=== PATIENT | male | born 1970 ===

== ENCOUNTER 2020-12-17 17:53 | Emergency (ER) | payer MEDICARE, MEDICAID, SELFPAY ==
--- NOTE | ~2020-12-17 | US_ITS ---
EXAMINATION: US VENOUS ULTRASOUND WITH DOPPLER LOWER EXTREMITY, RIGHT CLINICAL INFORMATION: Pain COMPARISON: None TECHNIQUE: Ultrasound of the deep veins is performed from the hip to the calf with compression sonography and color and pulse Doppler assessment. Spectral analysis with color-flow imaging is performed. FINDINGS: The right common femoral vein is patent. The right superficial femoral vein is duplicated. There is thrombus seen in the posterior mid and distal right superficial femoral vein and popliteal vein extending into the calf. There is no Salazar's cyst. US/US venous duplex LE RT IMPRESSION: Right leg DVT.
[2020-12-17 18:59] VITALS: BP 145/87; PULSE 70; RESP 16; TEMP 36.7; O2SAT 97; BMI 30.6
--- NOTE | 2020-12-17 20:34 | ED_ITS ---
HPI - Extremity Injury (Lower) General Chief Complaint: Extremity Injury, Lower Stated Complaint: Right leg swelling Time Seen by Provider: 12/17/20 20:33 Source: patient and family ( interpreted) Limitations: language barrier ( interpreted) History of Present Illness HPI Narrative: patient is a 50-year-old male with no significant past medical history who presents with right lower extremity pain. Patient's explains the pain started 2 days ago in his right calf, she states the pain is been getting worse and now he Has difficulty ambulating on it. She states she has given him Motrin and Tylenol but neither has worked. She states that is also swollen. They deny any fevers, cough, coughing up blood or shortness of breath. he states he has never had anything like this happen before. Patient does not know his father so he does not know that side of the family's medical history but states his mother an anyone also has family that he knows have no history of blood clots. He denies any long plane rides or periods of being sedentary. Related Data Previous Rx's Medication Instructions Recorded apixaban [Eliquis DVT-PE Treat 30D 5 mg PO PER G DIR #74 ea 12/17/20 Start] Allergies Allergy/AdvReac Type Severity Reaction Status Date / Time No Known Allergies Allergy Unverified 03/05/20 17:27 [No Known Allergies*] Review of Systems Review of Systems: Yes all other systems are reviewed and are negative [facility] Past Medical History Medical History No known health problems Social History Social History Patient Tobacco Use Status: Current everyday Tobacco user Use of substances other than those prescribed or required for medical reasons: No Advance Directives: No Physical Exam Vital Signs: Vital Signs: Last Vital Signs Temp 98.1 F 12/17/20 18:59 Pulse 70 12/17/20 18:59 Resp 16 12/17/20 18:59 BP 145/87 H 12/17/20 18:59 Pulse Ox 97 12/17/20 18:59 Body Mass Index 30.6 Const: General: cooperative, healthy appearing, comfortable and no acute distress Nutritional Appearance: average body habitus Orientation/consciousness: patient oriented x3 HENMT: Head: Yes normal to inspection Eyes: General: appearance normal, both eyes and all related structures Neck: Neck: Yes normal visual inspection and Yes full ROM Resp: Effort & Inspection: normal respiratory effort and able to speak in complete sentences Skin: General skin exam: no rashes or lesions noted, no ecchymosis and no erythema Neuro: General: patient oriented x3 Extrem: Right lower extremity: lower leg Details: tenderness (+ Gena's) Location: of the posterior calf and localized swelling Location: of the mid lower leg; no erythema, no pitting edema, no non-pitting edema, no abrasions, no lacerations, no ecchymosis, no foreign bodies, no penetrating wound, no deformity and no unusual warmth Left lower extremity: normal to inspection Course Course Course Narrative: patient is a 50-year-old male with no significant past medical history who presents with right lower extremity pain and swelling. will get labs, D-dimer and US of right lower extremity to rule out DVT. Reevaluation(s) Reevaluation #1: US + DVT, Discussed with Dr. Luu, will discharge on Eliquis. patient is hemodynamically stable has no chest pain and is not coughing up blood, will not get CTA at this time. discussed with patient and his girlfriend at length on were resend signs and symptoms and when to return to the emergency department. They verbalized understanding and agree with the plan. Also discussed the importance of taking the Eliquis, as directed. I also explained it is important for patient to follow-up with PCP in the next week or to so that he can get a referral for regulatory product manager for a hypercoagulability workup. Time: 22:13 MDM - Extremity Injury (Lower) Lab Data Attestation: I reviewed the patient's lab results. Result diagrams: 12/17/20 21:48 12/17/20 21:48 Labs: Lab Results 12/17/20 12/17/20 12/17/20 Range/Units 21:48 21:48 21:48 WBC 10.7 (4.8-10.8) X10*3/uL RBC 4.47 L (4.60-5.80) X10*6/uL Hgb 14.5 (14.0-18.0) g/dl Hct 41.7 L (42-52) % MCV 93.3 (80-98) fL MCH 32.4 (27.0-33.0) pg MCHC 34.8 (31.0-36.0) g/dl RDW 12.3 (11.0-16.0) % Plt Count 194 (160-400) X10*3/uL MPV 10.0 (9.4-12.4) fL Immature Gran % (Auto) 0.3 (0.0-0.4) % Neut % (Auto) 47.8 (45-73) % Lymph % (Auto) 39.7 (20-40) % [place] % (Auto) 8.4 (2-11) % Eos % (Auto) 3.3 (0-4) % Baso % (Auto) 0.5 (0-2) % Lymph # (Auto) 4.3 (1.2-4.9) X10*3/uL [place] # (Auto) 0.9 (0.1-1.2) X10*3/uL Eos # (Auto) 0.4 (0.0-0.4) X10*3/uL Baso # (Auto) 0.1 (0.0-0.2) X10*3/uL Abs Immat Gran (auto) 0.03 (0.00-0.03) X10*3/uL Absolute Neuts (auto) 5.1 (2.0-8.3) X10*3/uL Absolute Nucleated RBC 0.000 (0.0-0.012) X10*3/uL Nucleated RBC % (auto) 0.0 (0.0-0.2) /100WBC D-Dimer 1834 NG/ML Sodium 139 (135-145) mmol/L Potassium 4.2 (3.3-5.1) mmol/L Chloride 107 (96-108) mmol/L Carbon Dioxide 22 (22-29) mmol/L Anion Gap 14 (12-20) BUN 23 H (9-16) mg/dL Creatinine 1.07 (0.5-1.4) mg/dL Estim Creat Clear Calc 103.4 Estimated GFR > 60 Random Glucose 126 H (60-115) mg/dL Calcium 9.0 (8.4-10.2) mg/dL Imaging Data US: Attestation: I personally reviewed and interpreted this imaging study as follows: My impression: + DVT Radiologist's impression: [facility] [place], [place] [address]Exhxwojvuu ReportSigned with Addenda Patient: Dereje Contreras#: [id number]: 1970Acct:[id number]/Sex: 50 / MADM Date: 12/17/20Loc: EDAttnanci Dr: Ordering Physician: Marcela Gamboa PA-C Date of Service: 12/17/20 Procedure(s): US venous duplex LE RT Accession Number(s): [id number] cc: Marcela Gamboa PA-C~ ADDENDUMFindings were communicated to Marcela Gamboa by telephone on 12/17/2020 at 10:03 PM. Addendum Dictated By:LUIGI MOREAU MDAddendum Signed By:<Electronically signed by LUIGI MOREAU MD in OV>12/17/20ddendum Cosigned By:DD/ TD/TT: / EXAMINATION: US VENOUS ULTRASOUND WITH DOPPLER LOWER EXTREMITY, RIGHT CLINICAL INFORMATION: Pain COMPARISON: None TECHNIQUE: Ultrasound of the deep veins is performed from the hip to the calf with compression sonography and color and pulse Doppler assessment. Spectral analysis with color-flow imaging is performed. FINDINGS: The right common femoral vein is patent. The right superficial femoral vein is duplicated. There is thrombus seen in the posterior mid and distal right superficial femoral vein and popliteal vein extending into the calf. There is no Salazar's cyst. US/US venous duplex LE RT IMPRESSION: Right leg DVT. Dictated By:LUIGI MOREAU MDSigned By:<Electronically signed by LUIGI MOREAU MD in OV>12/17/202200 DD/ 32TD/TT: Compliance Officer: JUSTIN Discharge Plan Discharge Clinical Impression: DVT (deep venous thrombosis) Qualifiers: DVT location: lower extremity Affected thrombotic vein of extremity: popliteal Chronicity: acute Laterality: right Qualified Code(s): I82.431 - Acute embolism and thrombosis of right popliteal vein Patient Disposition: Home, Self-Care Instructions: Apixaban (By mouth), Deep Vein Thrombosis (ED) Additional Instructions: The ultrasound revealed you have a deep vein thrombosis (DVT) in your right lower leg. This is a blood clot. I have prescribed a blood thinner to you to break up the blood clot. As discussed, it is very important to take the medication I have prescribed to you. I have sent to the [facility]. We have given your 1st dose to you tonight in the emergency department. If you experience any chest pain, shortness of breath, feel your heart racing or start coughing up blood, please call 911 or return to the emergency department immediately. It is important that you follow-up with your primary care doctor in the coming days so that they can refer you to a regulatory product manager for a workup to try to find the reason you had a DVT. Prescriptions: New Eliquis DVT-PE Treat 30D Start 5 mg (74 tabs) tablets,dose pack 5 mg PO PER PKG DIR Qty: 74 RF: 0 Referrals: Benito Simon MD [Primary Care Provider] - 2 days (+ DVT RLE, started on Eliquis, will need hypercoaguability work up)
[2020-12-17 21:52] LABS: MANUAL DIFF FLAG NO
[2020-12-17 21:53] LABS: Basophils Absolute Auto 0.1 X10*3/uL (0.0-0.2); Basophils Percent Auto 0.5 % (0-2); Eosinophils Absolute Auto 0.4 X10*3/uL (0.0-0.4); Eosinophils Percent Auto 3.3 % (0-4); Hematocrit 41.7 % (42-52); Hemoglobin 14.5 g/dl (14.0-18.0); Imm Gran Abs Auto 0.03 X10*3/uL (0.00-0.03); Imm Gran Pct Auto 0.3 % (0.0-0.4); Lymphocytes Absolute Auto 4.3 X10*3/uL (1.2-4.9); Lymphocytes Percent Auto 39.7 % (20-40); Mean Corpuscular HGB Conc 34.8 g/dl (31.0-36.0); Mean Corpuscular Hemoglobin 32.4 pg (27.0-33.0); Mean Corpuscular Volume 93.3 fL (80-98); Monocytes Absolute Auto 0.9 X10*3/uL (0.1-1.2); Monocytes Percent Auto 8.4 % (2-11); Neutrophils Absolute Auto 5.1 X10*3/uL (2.0-8.3); Neutrophils Percent Auto 47.8 % (45-73); Platelet Count 194 X10*3/uL (160-400); Red Blood Count 4.47 X10*6/uL (4.60-5.80); Red Cell Distribution Width 12.3 % (11.0-16.0); White Blood Count 10.7 X10*3/uL (4.8-10.8)
[2020-12-17 22:13] LABS: Anion Gap 14 (12-20); Blood Urea Nitrogen 23 mg/dL (9-16); Carbon Dioxide 22 mmol/L (22-29); Chloride 107 mmol/L (96-108); Creatinine Clr Calc Pharmacy 103.4; Estimated Glomerular Filt Rate > 60; Glucose Random 126 mg/dL (60-115); Potassium 4.2 mmol/L (3.3-5.1); Sodium 139 mmol/L (135-145)
[2020-12-17 22:14] LABS: D Dimer 1834 NG/ML
[2020-12-17] MEDS: Morphine Sulfate Immed Release 15 MG TABLET PO (22:41)
[2020-12-17] MEDS: Apixaban 5 MG TABLET 10 MG PO (22:41)
== END 2020-12-17 22:56 | disposition home or self-care (01) ==
PROVIDERS: Physician Assistant; Emergency Provider Student in an Organized Health Care Education/Training Program; PCP Family Medicine
DX: I82.431 Acute embolism and thrombosis of right popliteal vein (principal)
CPT/HCPCS: 36415; 80048; 85025; 85379; 93971; 99284

== ENCOUNTER 2020-12-31 08:01 | Emergency (ER) | payer MEDICARE, MEDICAID, SELFPAY ==
--- NOTE | ~2020-12-31 | US_ITS ---
EXAMINATION: US VENOUS ULTRASOUND WITH DOPPLER LOWER EXTREMITY, RIGHT CLINICAL INFORMATION: Worsening right lower extremity swelling. DVT on 12/17/2020. COMPARISON: Right lower extremity venous ultrasound dated 12/17/2020 TECHNIQUE: Ultrasound of the deep veins is performed from the hip to the calf with compression sonography and color and pulse Doppler assessment. Spectral analysis with color-flow imaging is performed. FINDINGS: Redemonstration of heterogeneous echogenicity and noncompressibility extending from the mid right femoral vein into the calf veins. There has been partial recanalization of the femoral vein when compared to the prior examination. There has been recanalization involving the distal aspect of the posterior tibial vein when compared to the prior examination. No increasing thrombosis or evidence of propagation. US/US venous duplex LE RT IMPRESSION: Redemonstration of deep vein thrombosis within the right femoral vein through the calf veins. Partial recanalization of the right femoral vein as well as near-complete recanalization involving the distal posterior tibial vein. No increasing thrombus or evidence of propagation.
[2020-12-31 08:03] VITALS: BP 142/89; PULSE 67; RESP 18; TEMP 36.6; O2SAT 96; BMI 30.6
[2020-12-31 08:22] VITALS: PULSE 63
--- NOTE | 2020-12-31 09:04 | ED_ITS ---
HPI - General Adult General Chief complaint: General Medical Stated complaint: right leg pain Time Seen by Provider: 12/31/20 08:56 Source: patient Mode of arrival: ambulatory History of Present Illness HPI narrative: 50-year-old male with past medical history of RLE DVT diagnosed on 12/17 currently on Eliquis, presenting to the ED complaining of worsening right lower extremity swelling since diagnosis. Admits to compliance with Eliquis without missing any doses, states has follow-up with Hematology on 01/20. Denies fever, chills, numbness, tingling, weakness, CP, SOB, fever, hematemesis, recent travel. Denies known family history of clots. Does admit he is a cigarette smoker Onset (ago): day(s) Related Data Previous Rx's Medication Instructions Recorded apixaban [Eliquis DVT-PE Treat 30D 5 mg PO PER PKG DIR #74 ea 12/17/20 Start] diclofenac sodium [Arthritis Pain 4 g TOPICAL QID PRN #100 g 12/31/20 (diclofenac)] Allergies Allergy/AdvReac Type Severity Reaction Status Date / Time No Known Allergies Allergy Unverified 03/05/20 17:27 [No Known Allergies*] Review of Systems Review of Systems: Constitutional: No Fever, No Chills, No Fatigue, No Malaise Cardiovascular: No Chest Pain, No SOB, No Dyspnea on Exertion, + Edema, No Palpitations Respiratory: No Cough, No Sputum, No hematemesis Musculoskeletal: + joint pain, No Myalgias, No Joint Swelling Skin: No Skin Lesions, No rash Neuro: No Weakness, No Numbness, No Paresthesias Yes all other systems are reviewed and are negative [facility] Past Medical History Attestation statement: The following information was validated with the patient. Medical History No known health problems Social History Social History Patient Tobacco Use Status: Current everyday Tobacco user Advance Directives: No Advance Directives Information Provided: No Physical Exam Vital Signs: Vital Signs: Last Vital Signs Temp 97.8 F 12/31/20 08:03 Pulse 55 12/31/20 10:00 Resp 18 12/31/20 08:03 BP 128/94 H 12/31/20 10:00 Pulse Ox 98 12/31/20 10:00 Body Mass Index 30.6 Const: General: cooperative, healthy appearing and no acute distress Orientation/consciousness: patient oriented x3 Limitations: no limitations HENMT: Head: Yes normal to inspection Ears: hearing grossly normal bilaterally General nose exam: Normal external nose present Face and sinus: Yes normal facial exam Eyes: General: appearance normal, both eyes and all related structures EOM: EOMs intact bilaterally Neck: Neck: Yes normal visual inspection and Yes no meningeal signs Resp: Effort & Inspection: normal respiratory effort and no respiratory distress Cardio: Rate: regular rate Peripheral pulses: dorsalis pedis present Skin: Rashes: no rashes Wounds: no wounds Neuro: General: patient oriented x3 and no meningeal signs Gait exam (Neuro): Normal gait present Extrem: Other: Right lower extremity with pitting edema noted. + calf tenderness. No cellulitis/warmth. Neurovascularly intact. Left lower extremity WNL General: Yes normal to inspection Course Course Course Narrative: -no leukocytosis, H&H stable, labs otherwise unremarkable US venous duplex LE RT IMPRESSION: Redemonstration of deep vein thrombosis within the right femoral vein through the calf veins. Partial recanalization of the right femoral vein as well as near-complete recanalization involving the distal posterior tibial vein. No increasing thrombus or evidence of propagation. >> results discussed with patient and family/girlfriend at bedside including worrisome signs and symptoms, importance of compliance with Eliquis, strict return precautions, importance of follow-up with PCP/Hematology. They verbalized understanding. Patient requesting diclofenac topical cream Medical Decision Making [facility] Narrative Medical decision making narrative: 50-year-old male with past medical history of RLE DVT diagnosed on 12/17 currently on Eliquis, presenting to the ED complaining of worsening right lower extremity swelling since diagnosis. On exa m VSS, NAD/well-appearing, physical exam as above. Concern for persistent/worsening right lower extremity known DVT. Low concern for PE without CP/SOB or hematemesis, low concern for CHF. Patient reports compliance with anti coagulants. Plan: Labs, repeat venous duplex ultrasound Lab Data Result diagrams: 12/31/20 09:33 12/31/20 09:33 Labs: Lab Results 12/31/20 12/31/20 12/31/20 Range/Units 09:33 09:33 09:33 WBC 7.5 (4.8-10.8) X10*3/uL RBC 4.58 L (4.60-5.80) X10*6/uL Hgb 14.5 (14.0-18.0) g/dl Hct 42.0 (42-52) % MCV 91.7 (80-98) fL MCH 31.7 (27.0-33.0) pg MCHC 34.5 (31.0-36.0) g/dl RDW 12.1 (11.0-16.0) % Plt Count 218 (160-400) X10*3/uL MPV 9.9 (9.4-12.4) fL Immature Gran % (Auto) 0.4 (0.0-0.4) % Neut % (Auto) 55.9 (45-73) % Lymph % (Auto) 31.1 (20-40) % [place] % (Auto) 9.1 (2-11) % Eos % (Auto) 2.8 (0-4) % Baso % (Auto) 0.7 (0-2) % Lymph # (Auto) 2.3 (1.2-4.9) X10*3/uL [place] # (Auto) 0.7 (0.1-1.2) X10*3/uL Eos # (Auto) 0.2 (0.0-0.4) X10*3/uL Baso # (Auto) 0.1 (0.0-0.2) X10*3/uL Abs Immat Gran (auto) 0.03 (0.00-0.03) X10*3/uL Absolute Neuts (auto) 4.2 (2.0-8.3) X10*3/uL Absolute Nucleated RBC 0.000 (0.0-0.012) X10*3/uL Nucleated RBC % (auto) 0.0 (0.0-0.2) /100WBC PT 11.2 (9.9-13.0) SEC INR 1.0 (0.9-1.1) APTT 34.6 (24.1-38.0) SEC Sodium 139 (135-145) mmol/L Potassium 4.6 (3.3-5.1) mmol/L Chloride 110 H (96-108) mmol/L Carbon Dioxide 23 (22-29) mmol/L Anion Gap 11 L (12-20) BUN 14 (9-16) mg/dL Creatinine 0.89 (0.5-1.4) mg/dL Estim Creat Clear Calc 124.3 Estimated GFR > 60 Random Glucose 104 (60-115) mg/dL Calcium 9.2 (8.4-10.2) mg/dL B-Natriuretic Peptide (<100) pg/mL 12/31/20 Range/Units 09:33 WBC (4.8-10.8) X10*3/uL RBC (4.60-5.80) X10*6/uL Hgb (14.0-18.0) g/dl Hct (42-52) % MCV (80-98) fL MCH (27.0-33.0) pg MCHC (31.0-36.0) g/dl RDW (11.0-16.0) % Plt Count (160-400) X10*3/uL MPV (9.4-12.4) fL Immature Gran % (Auto) (0.0-0.4) % Neut % (Auto) (45-73) % Lymph % (Auto) (20-40) % [place] % (Auto) (2-11) % Eos % (Auto) (0-4) % Baso % (Auto) (0-2) % Lymph # (Auto) (1.2-4.9) X10*3/uL [place] # (Auto) (0.1-1.2) X10*3/uL Eos # (Auto) (0.0-0.4) X10*3/uL Baso # (Auto) (0.0-0.2) X10*3/uL Abs Immat Gran (auto) (0.00-0.03) X10*3/uL Absolute Neuts (auto) (2.0-8.3) X10*3/uL Absolute Nucleated RBC (0.0-0.012) X10*3/uL Nucleated RBC % (auto) (0.0-0.2) /100WBC PT (9.9-13.0) SEC INR (0.9-1.1) APTT (24.1-38.0) SEC Sodium (135-145) mmol/L Potassium (3.3-5.1) mmol/L Chloride (96-108) mmol/L Carbon Dioxide (22-29) mmol/L Anion Gap (12-20) BUN (9-16) mg/dL Creatinine (0.5-1.4) mg/dL Estim Creat Clear Calc Estimated GFR Random Glucose (60-115) mg/dL Calcium (8.4-10.2) mg/dL B-Natriuretic Peptide 72 (<100) pg/mL Discharge Plan Discharge Clinical Impression: DVT (deep venous thrombosis) Qualifiers: DVT location: lower extremity Affected thrombotic vein of extremity: femoral Chronicity: unspecified Laterality: right Qualified Code(s): I82.411 - Acute embolism and thrombosis of right femoral vein Patient Disposition: Home, Self-Care Instructions: Deep Vein Thrombosis (ED) Additional Instructions: Your blood work was reassuring today in the ED Your ultrasound showed improvement of your blood clot burden, wear compression stockings at home, make sure your walking around this helps improve blood flow, elevate your leg It is important to follow-up with the student support services director as scheduled, it is very important to continue to take the previously prescribed Eliquis, do not miss any doses If pain persists or worsens, becomes unbearable, have numbness, tingling, weakness, develops any shortness breath or chest pain return to the ED immediately Prescriptions: New diclofenac sodium [Arthritis Pain (diclofenac)] 1 % gel 4 g topical QID PRN (Reason: pain) Qty: 100 RF: 0 No Action Eliquis DVT-PE Treat 30D Start 5 mg (74 tabs) tablets,dose pack 5 mg PO PER PKG DIR Qty: 74 RF: 0 Referrals: Alejo Garcia MD [Physician] - 2 days (As scheduled) Interventions: ED Discharge Assessment Last Done: 12/31/20 12:45 Discharge Date/Time: 12/31/20 12:45
[2020-12-31 09:39] LABS: Basophils Absolute Auto 0.1 X10*3/uL (0.0-0.2); Basophils Percent Auto 0.7 % (0-2); Eosinophils Absolute Auto 0.2 X10*3/uL (0.0-0.4); Eosinophils Percent Auto 2.8 % (0-4); Hemoglobin 14.5 g/dl (14.0-18.0); Imm Gran Abs Auto 0.03 X10*3/uL (0.00-0.03); Imm Gran Pct Auto 0.4 % (0.0-0.4); Lymphocytes Absolute Auto 2.3 X10*3/uL (1.2-4.9); Lymphocytes Percent Auto 31.1 % (20-40); MANUAL DIFF FLAG NO; Mean Corpuscular HGB Conc 34.5 g/dl (31.0-36.0); Mean Corpuscular Hemoglobin 31.7 pg (27.0-33.0); Mean Corpuscular Volume 91.7 fL (80-98); Mean Platelet Volume 9.9 fL (9.4-12.4); Monocytes Absolute Auto 0.7 X10*3/uL (0.1-1.2); Monocytes Percent Auto 9.1 % (2-11); Neutrophils Absolute Auto 4.2 X10*3/uL (2.0-8.3); Neutrophils Percent Auto 55.9 % (45-73); Platelet Count 218 X10*3/uL (160-400); Red Blood Count 4.58 X10*6/uL (4.60-5.80); Red Cell Distribution Width 12.1 % (11.0-16.0); White Blood Count 7.5 X10*3/uL (4.8-10.8)
[2020-12-31 09:49] LABS: Prothrombin Time 11.2 SEC (9.9-13.0)
[2020-12-31 09:51] LABS: Partial Thromboplastin Time 34.6 SEC (24.1-38.0)
[2020-12-31 10:00] VITALS: BP 128/94; PULSE 55; O2SAT 98
[2020-12-31 10:08] LABS: Anion Gap 11 (12-20); Blood Urea Nitrogen 14 mg/dL (9-16); Calcium 9.2 mg/dL (8.4-10.2); Carbon Dioxide 23 mmol/L (22-29); Chloride 110 mmol/L (96-108); Creatinine Clr Calc Pharmacy 124.3; Estimated Glomerular Filt Rate > 60; Glucose Random 104 mg/dL (60-115); Potassium 4.6 mmol/L (3.3-5.1); Sodium 139 mmol/L (135-145)
[2020-12-31 10:11] LABS: B Type Natriuretic Peptide 72 pg/mL (<100)
--- NOTE | 2020-12-31 11:03 | PC.NURSE ---
PT IN ULTRASOUND
--- NOTE | 2020-12-31 11:40 | PC.NURSE ---
PT RETURNED FOR ULTRASOUND
== END 2020-12-31 12:45 | disposition home or self-care (01) ==
PROVIDERS: Physician Assistant; Emergency Provider Emergency Medicine
DX: I82.411 Acute embolism and thrombosis of right femoral vein (principal); I82.441 Acute embolism and thrombosis of right tibial vein; Z79.01 Long term (current) use of 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
CPT/HCPCS: 36415; 80048; 83880; 85025; 85610; 85730; 93971; 99284

== ENCOUNTER 2021-02-24 12:09 | Outpatient (REF) | payer MEDICARE, MEDICAID, SELFPAY ==
--- NOTE | ~2021-02-24 | US_ITS ---
EXAMINATION: US VENOUS ULTRASOUND WITH DOPPLER LOWER EXTREMITY, RIGHT CLINICAL INFORMATION: Pain. History of DVT. COMPARISON: Previous exam December 17 and 12/21/2020 TECHNIQUE: Ultrasound of the deep veins is performed from the hip to the calf with compression sonography and color and pulse Doppler assessment. Spectral analysis with color-flow imaging is performed. FINDINGS: The right common femoral vein is patent. The right profunda is patent. There is increasing thrombus seen in the right superficial femoral vein, particularly proximally and in the mid thigh. There is interval decrease in thrombus in the popliteal vein with increased recanalization. There is interval decrease in thrombus in the posterior tibial and peroneal veins with increased recanalization. There is no Salazar's cyst. US/US venous duplex LE RT IMPRESSION: Right leg DVT. This appears worse in the superficial femoral vein and improved in the popliteal and calf veins compared with most recent exam 12/31/2020. Findings were communicated to Emilie Smart medical assistant secretary by Meron Vargas on 02/25/2020 at 2:00 PM by telephone.
== END 2021-02-24 12:10 | disposition home or self-care (01) ==
LOC: HO.US 12:09
PROVIDERS: Visit Provider Family Medicine
DX: I82.401 Acute embolism and thrombosis of unspecified deep veins of right lower extremity (principal)
CPT/HCPCS: 93971

== ENCOUNTER 2021-04-14 18:24 | Emergency (ER) | payer MEDICARE, MEDICAID, SELFPAY ==
--- NOTE | ~2021-04-14 | XR_ITS ---
EXAMINATION: XR ELBOW, RIGHT CLINICAL INFORMATION: Pain, trauma COMPARISON: None TECHNIQUE: AP, lateral, and oblique views of the right elbow. FINDINGS: There is spurring off the olecranon and a lucency in the region. Given the history I must consider fracture through a spur. There is adjacent soft tissue swelling Some mild irregularity involving the medial and lateral epicondyles may be degenerative in nature. Mild cortical injury involving the distal humeral condyle laterally cannot be excluded XR/XR elbow RT min 3V IMPRESSION: Findings as described above. I must consider a fracture through a spur of the olecranon. Correlation recommended clinically. Point palpation recommended. Also irregularity of the distal humeral condyles may be degenerative. Superimposed cortical injury laterally cannot be completely excluded
[2021-04-14 19:16] VITALS: BP 137/81; PULSE 68; RESP 16; TEMP 36.4; O2SAT 98; BMI 30.6
--- NOTE | 2021-04-14 20:24 | ED.UPPEXIN ---
HPI - Extremity Injury (Upper) General Chief Complaint: Extremity Injury, Upper Stated Complaint: elbow/arm swelling Time Seen by Provider: 04/14/21 20:19 Source: patient and family Mode of arrival: ambulatory Limitations: language barrier ([place] Islander Speaking ) History of Present Illness complaint: injury to: right and elbow Onset (ago): day(s) (3 days ) Other Extremity Injury: right: elbow Other injuries: none Place: home Severity: severe Severity scale (1-10): >10 Relieving factors: none Exacerbating factors: other (Palpation) Context: direct blow (with a door ) Associated symptoms: denies other symptoms Related Data Previous Rx's Medication Instructions Recorded apixaban 5 mg (74 tabs) tablets in 5 mg PO PER PKG DIR #74 ea 12/17/20 a dose pack (Eliquis DVT-PE Treat 30D Start) diclofenac sodium 1 % topical gel 4 g TOPICAL QID PRN #100 g 12/31/20 (Arthritis Pain (diclofenac)) acetaminophen 500 mg tablet 1,000 mg PO QID PRN #14 tab 04/14/21 (Tylenol Extra Strength) oxycodone 5 mg tablet 5 mg PO Q6H PRN #14 tab 04/14/21 Allergies Allergy/AdvReac Type Severity Reaction Status Date / Time No Known Allergies Allergy Verified 04/14/21 19:16 [No Known Allergies*] Review of Systems Review of Systems: Constitutional : No Weight loss, No Fever, No Chills, No Night Sweats, No Fatigue, No Malaise ENT/Mouth : No Hearing loss, No Ear Pain, No Nasal Congestion, No Sinus Pain, No Hoarseness, No sore throat, No Rhinorrhea, No Swallowing Difficulty Eyes: No Eye Pain, No Swelling, No Redness, No Foreign Body, No Discharge, No Vision Changes Cardiovascular : No Chest Pain, No SOB, No Dyspnea on Exertion, No Orthopnea, No Edema, No Palpitations Respiratory : No Cough, No Sputum, No Wheezing, No Smoke Exposure, No Dyspnea Gastrointestinal : No Nausea, No Vomiting, No Diarrhea, No Constipation, No abdominal Pain, No Hematochezia, No Melena Genitourinary : no irregular bleeding, No Dysuria, No Urinary Frequency, No Hematuria, No Urinary Incontinence, No Urgency, No Flank Pain, No Urinary Flow Changes, No Hesitancy Musculoskeletal : + right elbow joint pain/swelling, No Myalgias Skin : No Skin Lesions, No rash Neuro : No Weakness, No Numbness, No Paresthesias, No Loss of Consciousness, No Dizziness, No Headache Psych : No Anxiety/Panic, No Depression, No SI/HI/AH/VH, No Social Issues, Heme/Lymph: No Bruising, No Bleeding,No Lymphadenopathy Endocrine : No Polyuria, No Polydipsia, No Temperature Intolerance Yes all other systems are reviewed and are negative [facility] Past Medical History Attestation statement: The following information was validated with the patient. Medical History DVT (deep venous thrombosis) No known health problems Social History Social History Patient Tobacco Use Status: Current everyday Tobacco user Advance Directives: No Advance Directives Information Provided: No Physical Exam Vital Signs: Vital Signs: Last Vital Signs Temp 97.5 F 04/14/21 19:16 Pulse 68 04/14/21 19:16 Resp 16 04/14/21 19:16 BP 137/81 04/14/21 19:16 Pulse Ox 98 04/14/21 19:16 Body Mass Index 30.6 vital signs have been reviewed as normal and appeared to be correct. Blood pressure normal Heart rate normal. Respiration rate normal. Temperature normal. Oxygen saturation normal. Appearance: Alert. Oriented X3. No acute distress. Head: Normal external exam. Normocephalic. Atraumatic. Eyes: PERRLA. EOMI. Conjunctiva and sclera normal. Eyelids normal. ENT: Pharynx normal. Uvula midline. Moist mucous membranes. Neck: Normal inspection. Neck supple. FROM. CVS: Normal heart rate and rhythm. Respiratory: No respiratory distress. Painless inspiration. Skin: Skin warm and dry. Normal skin color. Normal skin turgor. No rashes/lesions/lacerations noted. Extremities:Patient with TTP to right olecranon with soft tissue swelling patient has full range of motion no obvious tendon or ligament injury. No upper extremity edema noted. Otherwise all other Extremities exhibit normal range of motion and nontender. Neuro: Oriented X 3. No motor deficit. No sensory deficit. Reflexes normal. Normal steady gait. No focal neuro deficits noted. Vascular: + radial pulses/+ 2 distal pedal pulses/+2 dorsalis pedis b/l. Normal cap refill. No cyanosis noted to upper extremity nails and lower extremity toes nails. Course Course Course Narrative: X-ray obtained and revealed a possible olecranon fracture and chronic changes. Will place in a sling and an Martin wrap and treat symptomatically and instruct to follow up with Orthopedic in 1-2 weeks and to return if any new or worsening symptoms. Patient understands agrees with plan. MDM - Extremity Injury (Upper) Medical Records Attestation: I reviewed the patient's medical records. Imaging Data Right elbow x-ray: Attestation: I personally reviewed and interpreted this imaging study as follows: Radiologist's impression: FINDINGS: There is spurring off the olecranon and a lucency in the region. Given the history I must consider fracture through a spur. There is adjacent soft tissue swelling Some mild irregularity involving the medial and lateral epicondyles may be degenerative in nature. Mild cortical injury involving the distal humeral condyle laterally cannot be excluded? XR/XR elbow RT min 3V IMPRESSION: Findings as described above. I must consider a fracture through a spur of the olecranon. Correlation recommended clinically. Point palpation recommended. ? Also irregularity of the distal humeral condyles may be degenerative. Superimposed cortical injury laterally cannot be completely excluded Procedures Orthopedic Splinting/Casting Injury #1: Side: right Upper Extremity Injury Location: elbow Upper Extremity Immobilizer: sling/shoulder immobilizer and Martin wrap Discharge Plan Discharge Clinical Impression: Closed olecranon fracture Patient Disposition: Home, Self-Care Instructions: Elbow Fracture (ED), Shoulder Immobilizer (ED) Prescriptions: New acetaminophen [Tylenol Extra Strength] 500 mg tablet 1,000 mg PO QID PRN (Reason: fever or pain) Qty: 14 RF: 0 oxycodone 5 mg tablet 5 mg PO Q6H PRN (Reason: pain) Qty: 14 RF: 0 No Action Eliquis DVT-PE Treat 30D Start 5 mg (74 tabs) tablets,dose pack 5 mg PO PER PKG DIR Qty: 74 RF: 0 diclofenac sodium [Arthritis Pain (diclofenac)] 1 % gel 4 g topical QID PRN (Reason: pain) Qty: 100 RF: 0 Referrals: Aga Carson MD [Physician] - 2 days (Call tomorrow to make a follow-up appointment within a week) Print Language: [place]
[2021-04-14] MEDS: oxyCODONE HCl Immed Release 5 MG TABLET PO (20:28)
== END 2021-04-14 20:33 | disposition home or self-care (01) ==
PROVIDERS: Emergency Provider Internal Medicine
DX: S52.021A Displaced fracture of olecranon process without intraarticular extension of right ulna, initial encounter for closed fracture (principal); W20.8XXA Other cause of strike by thrown, projected or falling object, initial encounter; Y93.9 Activity, unspecified; Y92.009 Unspecified place in unspecified non-institutional (private) residence as the place of occurrence of the external cause; Y99.9 Unspecified external cause status; Z86.718 Personal history of other venous thrombosis and embolism
CPT/HCPCS: 73080; 99283

== ENCOUNTER 2021-05-02 18:21 | Emergency (ER) | payer MEDICARE, MEDICAID, SELFPAY ==
--- NOTE | ~2021-05-02 | CT_ITS ---
EXAMINATION: CT ABDOMEN AND PELVIS WITH CONTRAST CLINICAL INFORMATION: Left lower quadrant pain. COMPARISON: 08/28/2007 CT scan of the abdomen. TECHNIQUE: Multidetector volumetric images were obtained from the superior aspect of the liver through the pubic symphysis following administration 85 mL of Omnipaque 350 intravenous contrast. Sagittal and coronal reformatted images were obtained on the technologist's workstation. Oral contrast: No This CT examination was performed using dose optimization techniques as appropriate, variously including the following: *Automated exposure control *Adjustment of mA and/or kV according to patient size (this includes techniques or standardized protocols for targeted exams where dose is matched to indication/reason for exam; i.e. extremities or head) *Use of iterative reconstruction technique DLP: 849.85 mGy-cm FINDINGS: LUNG BASES: The visualized lung bases are unremarkable. LIVER, GALLBLADDER, AND BILIARY TREE: Mild diffuse hepatic low-attenuation without focal abnormality. Normal variant extension of the left lobe into the left upper quadrant without abnormality. PANCREAS: Unremarkable. SPLEEN: Unremarkable. ADRENAL GLANDS: Unremarkable. KIDNEYS AND URETERS: Tiny low-attenuation foci in the kidneys bilaterally are too small adequately characterize. No nephrolithiasis or hydroureteronephrosis. BLADDER: Unremarkable. GASTROINTESTINAL TRACT: The stomach, small bowel and appendix are unremarkable. A large bowel is unremarkable. ABDOMINAL WALL: Small fat-containing right inguinal hernia without abnormality. LYMPH NODES: Normal. VASCULAR: Unremarkable. PELVIC VISCERA: Mild prostatomegaly. OSSEOUS STRUCTURES: Moderate to severe degenerative changes are seen at L5-S1 with apparent disc spacer device in place. Spinal stimulation leads are seen in place at the level of T8. Mild lumbar levoscoliosis. CT/CT abdomen pelvis w con IMPRESSION: 1. Possible mild hepatic steatosis without focal abnormality. 2. Tiny low-attenuation foci in the kidneys bilaterally are too small to adequately characterize, but demonstrate benign features likely representing cysts. No nephrolithiasis or hydronephrosis. 3. No significant bowel abnormality. No significant colonic diverticulosis or evidence for acute diverticulitis. 4. Small fat-containing right inguinal hernia without abnormality. 5. L5-S1 moderate to severe with disc spacer devices in place.
[2021-05-02 18:25] VITALS: BP 151/89; PULSE 79; RESP 18; TEMP 36.6; O2SAT 97; BMI 31.1
--- NOTE | 2021-05-02 20:29 | ED.ABDPAIN ---
HPI - Abdominal Pain General Chief Complaint: Abdominal Pain Stated Complaint: Lower Abdominal Pain Time Seen by Provider: 05/02/21 20:18 Source: patient Mode of arrival: ambulatory Limitations: no limitations History of Present Illness MD elicited complaint: abdominal pain Pertinent past history: none Onset (ago): day(s) (1) Pain Consistency: constant Location: LUQ and suprapubic Severity: moderate Quality: cramping Radiation: none Migration to: no migration Exacerbating factors: movement Relieving factors: nothing Associated symptoms: nausea, chills and dysuria Related Data Previous Rx's Medication Instructions Recorded apixaban 5 mg (74 tabs) tablets in 5 mg PO PER PKG DIR #74 ea 12/17/20 a dose pack ([employer] DVT-PE Treat 30D Start) diclofenac sodium 1 % topical gel 4 g TOPICAL QID PRN #100 g 12/31/20 (Arthritis Pain (diclofenac)) acetaminophen 500 mg tablet 1,000 mg PO QID PRN #14 tab 04/14/21 (Tylenol Extra Strength) oxycodone 5 mg tablet 5 mg PO Q6H PRN #14 tab 04/14/21 levofloxacin 500 mg tablet 500 mg PO DAILY 7 Days #7 tab 05/02/21 metronidazole 500 mg tablet 500 mg PO Q12H 7 Days #14 tab 05/02/21 Allergies Allergy/AdvReac Type Severity Reaction Status Date / Time No Known Allergies Allergy Verified 04/14/21 19:16 [No Known Allergies*] Review of Systems Review of Systems Constitutional : No Weight loss, No Fever, No Chills ENT/Mouth : No sore throat, No Rhinorrhea Eyes: No Swelling, No Redness Cardiovascular : No Chest Pain, No SOB, NoEdema Respiratory : No Cough, No Sputum, No Wheezing Gastrointestinal : Positive Nausea, no Vomiting, no Diarrhea, positive abdominal Pain, No Hematochezia, No Melena Genitourinary : pos Dysuria, pos Urinary Frequency, No Hematuria, No Urgency Musculoskeletal : No joint pain, No Myalgias, No Joint Swelling Skin : No Skin Lesions, No rash Neuro : No Weakness, No Numbness, No Dizziness, No Headache Psych : No Anxiety/Panic, No Depression Heme/Lymph: No Bruising, No Lymphadenopathy Endocrine : No Polyuria, No Polydipsia All other systems reviewed and are negative. Physical Exam Vital Signs: Vital Signs: Last Vital Signs Temp 98 F 05/02/21 18:25 Pulse 56 05/02/21 22:57 Resp 16 05/02/21 22:57 BP 134/86 05/02/21 22:57 Pulse Ox 98 05/02/21 22:57 Body Mass Index 31.1 Appearance: Alert. Oriented X3. No acute distress. Eyes: Pupils equal, round and reactive to light. ENT: Pharynx normal. Neck: Normal inspection. Neck supple. CVS: Normal heart rate and rhythm. Pulses normal. Respiratory: No respiratory distress. Breath sounds normal. Abdomen: Soft and moderate ttp in LLQ no rebound : normal spermatic cord, normal scrotum Skin: Skin warm and dry. Normal skin color. Normal skin turgor. Extremities: No lower extremity edema. No calf ttp Neuro: Oriented X 3. No motor deficit. No sensory deficit. Course Course Course Narrative: one day of lower abdominal pain - possible early diverticulitis - will start on levofloxacin/flagyl morphine MDM - Abdominal Pain MDM Narrative Medical decision making narrative: 51 yo male with hx of back surgery through abdomen - at this time labs, UA, CT scan for diverticulitis/renal colic ordered, IV morphine for pain ordered Differential Diagnosis Differential diagnosis: Likely abdominal pain, calculus of kidney, constipation, diverticulitis and small bowel obstruction; Unlikely aortic dissection or acute appendicitis Lab Data Result diagrams: 05/02/21 20:52 05/02/21 20:52 Labs: Lab Results 05/02/21 05/02/21 05/02/21 Range/Units 20:52 20:52 20:52 WBC 9.0 (4.8-10.8) X10*3/uL RBC 4.78 (4.60-5.80) X10*6/uL Hgb 15.2 (14.0-18.0) g/dl Hct 43.8 (42.0-52.0) % MCV 91.6 (80.0-98.0) fL MCH 31.8 (27.0-33.0) pg MCHC 34.7 (31.0-36.0) g/dl RDW 12.1 (11.0-16.0) % Plt Count 249 (160-400) X10*3/uL MPV 10.1 (9.4-12.4) fL Immature Gran % (Auto) 0.3 (0.0-0.4) % Neut % (Auto) 59.2 (45-73) % Lymph % (Auto) 30.4 (20-40) % [place] % (Auto) 7.7 (2-11) % Eos % (Auto) 1.8 (0-4) % Baso % (Auto) 0.6 (0-2) % Lymph # (Auto) 2.7 (1.2-4.9) X10*3/uL [place] # (Auto) 0.7 (0.1-1.2) X10*3/uL Eos # (Auto) 0.2 (0.0-0.4) X10*3/uL Baso # (Auto) 0.1 (0.0-0.2) X10*3/uL Abs Immat Gran (auto) 0.03 (0.00-0.03) X10*3/uL Absolute Neuts (auto) 5.3 (2.0-8.3) x10*3/uL Absolute Nucleated RBC 0.000 (0.0-0.012) X10*3/uL Nucleated RBC % (auto) 0.0 (0.0-0.2) /100WBC Sodium 140 (135-145) mmol/L Potassium 4.3 (3.3-5.1) mmol/L Chloride 105 (96-108) mmol/L Carbon Dioxide 27 (22-29) mmol/L Anion Gap 12 (12-20) BUN 11 (9-16) mg/dL Creatinine 0.88 (0.5-1.4) mg/dL Estim Creat Clear Calc 125.4 Estimated GFR > 60 Random Glucose 89 (60-115) mg/dL Calcium 9.2 (8.4-10.2) mg/dL Magnesium 2.0 (1.6-2.6) mg/dL Total Bilirubin 0.4 (0.0-1.0) mg/dL Direct Bilirubin 0.2 (0.0-0.5) mg/dL AST 25 (5-37) U/L ALT 41 H (0-40) U/L Alkaline Phosphatase 118 H (39-117) U/L Total Protein 7.2 (6.5-8.0) g/dL Albumin 4.1 (3.5-5.0) g/dL Lipase 32 (8-78) U/L Urine Color Urine Appearance Urine pH (5.0-8.0) Ur Specific [place] (1.005-1.025) Urine Protein (NEG-TRACE) MG/DL Urine Glucose (UA) (NEG) MG/DL Urine Ketones (NEG) MG/DL Urine Blood (NEG) Urine Nitrite (NEG) Ur Leukocyte Esterase (NEG) COVID-19 (MARIE) Negative (Negative) COVID-19 Clin Com See Note 05/02/21 Range/Units 23:01 WBC (4.8-10.8) X10*3/uL RBC (4.60-5.80) X10*6/uL Hgb (14.0-18.0) g/dl Hct (42.0-52.0) % MCV (80.0-98.0) fL MCH (27.0-33.0) pg MCHC (31.0-36.0) g/dl RDW (11.0-16.0) % Plt Count (160-400) X10*3/uL MPV (9.4-12.4) fL Immature Gran % (Auto) (0.0-0.4) % Neut % (Auto) (45-73) % Lymph % (Auto) (20-40) % [place] % (Auto) (2-11) % Eos % (Auto) (0-4) % Baso % (Auto) (0-2) % Lymph # (Auto) (1.2-4.9) X10*3/uL [place] # (Auto) (0.1-1.2) X10*3/uL Eos # (Auto) (0.0-0.4) X10*3/uL Baso # (Auto) (0.0-0.2) X10*3/uL Abs Immat Gran (auto) (0.00-0.03) X10*3/uL Absolute Neuts (auto) (2.0-8.3) x10*3/uL Absolute Nucleated RBC (0.0-0.012) X10*3/uL Nucleated RBC % (auto) (0.0-0.2) /100WBC Sodium (135-145) mmol/L Potassium (3.3-5.1) mmol/L Chloride (96-108) mmol/L Carbon Dioxide (22-29) mmol/L Anion Gap (12-20) BUN (9-16) mg/dL Creatinine (0.5-1.4) mg/dL Estim Creat Clear Calc Estimated GFR Random Glucose (60-115) mg/dL Calcium (8.4-10.2) mg/dL Magnesium (1.6-2.6) mg/dL Total Bilirubin (0.0-1.0) mg/dL Direct Bilirubin (0.0-0.5) mg/dL AST (5-37) U/L ALT (0-40) U/L Alkaline Phosphatase (39-117) U/L Total Protein (6.5-8.0) g/dL Albumin (3.5-5.0) g/dL Lipase (8-78) U/L Urine Color YELLOW Urine Appearance CLEAR Urine pH 6.0 (5.0-8.0) Ur Specific [place] <= 1.005 (1.005-1.025) Urine Protein NEG (NEG-TRACE) MG/DL Urine Glucose (UA) NEG (NEG) MG/DL Urine Ketones NEG (NEG) MG/DL Urine Blood NEG (NEG) Urine Nitrite NEG (NEG) Ur Leukocyte Esterase NEG (NEG) COVID-19 (MARIE) (Negative) COVID-19 Clin Com Discharge Plan Discharge Clinical Impression: Abdominal pain Patient Disposition: Home, Self-Care Instructions: Abdominal Pain (ED) Additional Instructions: return to ED for any worsening symptoms or concerns Prescriptions: New levofloxacin 500 mg tablet 500 mg PO DAILY 7 Days Qty: 7 RF: 0 metronidazole 500 mg tablet 500 mg PO Q12H 7 Days Qty: 14 RF: 0 No Action Eliquis DVT-PE Treat 30D Start 5 mg (74 tabs) tablets,dose pack 5 mg PO PER PKG DIR Qty: 74 RF: 0 diclofenac sodium [Arthritis Pain (diclofenac)] 1 % gel 4 g topical QID PRN (Reason: pain) Qty: 100 RF: 0 acetaminophen [Tylenol Extra Strength] 500 mg tablet 1,000 mg PO QID PRN (Reason: fever or pain) Qty: 14 RF: 0 oxycodone 5 mg tablet 5 mg PO Q6H PRN (Reason: pain) Qty: 14 RF: 0 Referrals: Suzanna Simon MD [Primary Care Provider] - 2 days Stand Alone Forms: Work/School Release Interventions: ED Discharge Assessment Last Done: 05/02/21 23:38 Discharge Date/Time: 05/02/21 23:39 Print Language: Ivorian [facility] Past Medical History Attestation statement: The following information was validated with the patient. Medical History (Updated 05/03/21 @ 00:24 by Araceli Rangel DO) DVT (deep venous thrombosis) No known health problems Surgical History (Updated 05/02/21 @ 20:48 by Araceli Rangel DO) Previous back surgery Social History Social History Patient Tobacco Use Status: Current everyday Tobacco user Advance Directives: No
[2021-05-02 21:04] VITALS: RESP 18
[2021-05-02] MEDS: Morphine Sulfate 4 MG/ML CARTRIDGE IVPUSH (21:04)
[2021-05-02] MEDS: ondansetron HCL 4 MG/2 ML VIAL IVPUSH (21:04)
[2021-05-02] MEDS: 0.9 % Sodium Chloride 1,000 ML 999 ML IVCONT (21:05)
[2021-05-02 21:12] LABS: MANUAL DIFF FLAG NO
[2021-05-02 21:13] LABS: Basophils Absolute Auto 0.1 X10*3/uL (0.0-0.2); Basophils Percent Auto 0.6 % (0-2); Eosinophils Absolute Auto 0.2 X10*3/uL (0.0-0.4); Eosinophils Percent Auto 1.8 % (0-4); Hematocrit 43.8 % (42.0-52.0); Hemoglobin 15.2 g/dl (14.0-18.0); Imm Gran Abs Auto 0.03 X10*3/uL (0.00-0.03); Imm Gran Pct Auto 0.3 % (0.0-0.4); Lymphocytes Absolute Auto 2.7 X10*3/uL (1.2-4.9); Lymphocytes Percent Auto 30.4 % (20-40); Mean Corpuscular HGB Conc 34.7 g/dl (31.0-36.0); Mean Corpuscular Hemoglobin 31.8 pg (27.0-33.0); Mean Corpuscular Volume 91.6 fL (80.0-98.0); Mean Platelet Volume 10.1 fL (9.4-12.4); Monocytes Absolute Auto 0.7 X10*3/uL (0.1-1.2); Monocytes Percent Auto 7.7 % (2-11); Neutrophils Absolute Auto 5.3 x10*3/uL (2.0-8.3); Neutrophils Percent Auto 59.2 % (45-73); Platelet Count 249 X10*3/uL (160-400); Red Blood Count 4.78 X10*6/uL (4.60-5.80); Red Cell Distribution Width 12.1 % (11.0-16.0)
[2021-05-02 21:27] LABS: COVID-19 Test Negative (Negative)
[2021-05-02 21:30] LABS: Alanine Aminotransferase 41 U/L (0-40); Albumin Level 4.1 g/dL (3.5-5.0); Alkaline Phosphatase 118 U/L (39-117); Anion Gap 12 (12-20); Aspartate Amino Transferase 25 U/L (5-37); Bilirubin Direct 0.2 mg/dL (0.0-0.5); Bilirubin Total 0.4 mg/dL (0.0-1.0); Blood Urea Nitrogen 11 mg/dL (9-16); Calcium 9.2 mg/dL (8.4-10.2); Carbon Dioxide 27 mmol/L (22-29); Chloride 105 mmol/L (96-108); Creatinine Clr Calc Pharmacy 125.4; Estimated Glomerular Filt Rate > 60; Glucose Random 89 mg/dL (60-115); Lipase 32 U/L (8-78); Potassium 4.3 mmol/L (3.3-5.1); Sodium 140 mmol/L (135-145); Total Protein 7.2 g/dL (6.5-8.0)
[2021-05-02] MEDS: iohexoL 350 MG/ML 100 ML INFUS..BTL 85 ML IV (21:55)
[2021-05-02 22:57] VITALS: BP 134/86; PULSE 56; RESP 16; O2SAT 98
[2021-05-02 23:21] LABS: Appearance Urine CLEAR; Color Urine YELLOW; Glucose Urine UA NEG (NEG); Leukocyte Esterase Urine NEG (NEG); Nitrite Urine NEG (NEG); Specific Gravity - Urine <= 1.005 (1.005-1.025); Urine Blood NEG (NEG); Urine Ketones NEG (NEG); Urine Protein NEG (NEG-TRACE)
== END 2021-05-02 23:39 | disposition home or self-care (01) ==
PROVIDERS: Emergency Provider Emergency Medicine; PCP Urology Pediatric Urology
DX: R10.30 Lower abdominal pain, unspecified (principal); Z86.718 Personal history of other venous thrombosis and embolism; Z20.822 Contact with and (suspected) exposure to COVID-19
CPT/HCPCS: 36415; 74177; 80048; 80076; 81003; 83690; 83735; 85025; 87635; 96361; 96374; 96375; 99284; J2270; J2405; Q9967

== ENCOUNTER 2021-05-04 08:10 | Emergency (ER) | payer MEDICARE, MEDICAID, SELFPAY ==
--- NOTE | 2021-05-04 | ECG_ITS ---
Test Reason : chest pain Blood Pressure : / mmHG Vent. Rate : 077 BPM Atrial Rate : 077 BPM P-R Int : 164 ms QRS Dur : 084 ms QT Int : 378 ms P-R-T Axes : 023 048 025 degrees QTc Int : 427 ms Normal sinus rhythm Normal ECG When compared with ECG of 28-FEB-2013 10:46, No significant change was found Referred By: Generic ED Physician Electronically Signed By:ALIX DUNN MD
--- NOTE | ~2021-05-04 | XR_ITS ---
EXAMINATION: XR CHEST CLINICAL INFORMATION: Question pneumonia COMPARISON: None TECHNIQUE: Frontal view of the chest was obtained. FINDINGS: The cardiac and mediastinal contours are stable. The lungs are clear. There is no pleural effusion or pneumothorax. There are mild degenerative changes of the lumbar spine. There is a spinal stimulator seen in the lower thoracic spinal canal. XR/XR chest 1V IMPRESSION: No evidence of pneumonia.
--- NOTE | ~2021-05-04 | CT_ITS ---
EXAMINATION: CT ABDOMEN AND PELVIS WITH CONTRAST CLINICAL INFORMATION: Worsening abdominal pain COMPARISON: Previous CT of the abdomen and pelvis 05/02/2021 TECHNIQUE: Multidetector volumetric images were obtained from the superior aspect of the liver through the pubic symphysis following administration 85 mL of Omnipaque 350 intravenous contrast. Sagittal and coronal reformatted images were obtained on the technologist's workstation. Oral contrast: Yes This CT examination was performed using dose optimization techniques as appropriate, variously including the following: *Automated exposure control *Adjustment of mA and/or kV according to patient size (this includes techniques or standardized protocols for targeted exams where dose is matched to indication/reason for exam; i.e. extremities or head) *Use of iterative reconstruction technique DLP: 798 mGy-cm FINDINGS: LUNG BASES: The visualized lung bases are unremarkable. LIVER, GALLBLADDER, AND BILIARY TREE: The liver is slightly low in attenuation suggestive of mild fatty infiltration. No focal hepatic lesion or biliary ductal dilatation is present. The gallbladder is unremarkable with no evidence of radiopaque gallstones, gallbladder wall thickening, or obvious pericholecystic inflammatory changes. PANCREAS: Unremarkable. SPLEEN: Unremarkable. ADRENAL GLANDS: Unremarkable. KIDNEYS AND URETERS: The kidneys are normal in size, shape, and attenuation. No hydronephrosis, hydroureter, or calculi seen. No perinephric stranding. BLADDER: Unremarkable. GASTROINTESTINAL TRACT: There is mild diverticulosis of the colon. No evidence of diverticulitis is seen. The small and large bowel are otherwise unremarkable. The appendix is unremarkable. ABDOMINAL WALL: There are small umbilical and right inguinal hernias containing fat. LYMPH NODES: Normal. VASCULAR: Unremarkable. PELVIC VISCERA: Unremarkable. OSSEOUS STRUCTURES: There is curvature of the lower lumbar spine to the left. There are postsurgical changes at the L5-S1 disc. There is a spinal stimulator with lead thoracic spinal canal. Of the T8 vertebral body. CT/CT abdomen pelvis w con IMPRESSION: No acute findings. Diverticulosis. No evidence of diverticulitis. Mild fatty infiltration. Small umbilical and right inguinal hernias containing fat.
--- NOTE | ~2021-05-04 | CT_ITS ---
EXAMINATION: CT ANGIOGRAM OF THE CHEST WITH AND WITHOUT CONTRAST (CT PULMONARY ANGIOGRAM FOR PE) CLINICAL INFORMATION: Reason for Exam Atypical left-sided chest pain with elevated D-dimer. R COMPARISON: Previous chest x-ray from earlier the same day TECHNIQUE: Prior to contrast administration, noncontrast localization images were obtained. Subsequently, multidetector volumetric imaging was performed from the thoracic inlet to below the diaphragms following the administration of 85 mL Omnipaque 350 intravenous contrast. No contrast reaction reported Sagittal, coronal, and MIP oblique sagittal reformatted images were obtained on the CT workstation, uploaded to PACS, and reviewed. This CT examination was performed using dose optimization techniques as appropriate, variously including the following: *Automated exposure control *Adjustment of mA and/or kV according to patient size (this includes techniques or standardized protocols for targeted exams where dose is matched to indication/reason for exam; i.e. extremities or head) *Use of iterative reconstruction technique Total exam dose-length product 328 mGy-cm FINDINGS: QUALITY OF STUDY/CONTRAST BOLUS: There is suboptimal opacification of the pulmonary arteries due to late timing. PULMONARY ARTERIES: No central or large pulmonary embolism is seen. Evaluation of smaller segmental and subsegmental pulmonary emboli is limited due to suboptimal contrast opacification. There is question of wall thickening or filling defect seen in the proximal left lower lobe pulmonary artery just beyond the takeoff of the superior segment pulmonary artery branch for example coronal reconstructed image 56 and 57 series 12. THORACIC AORTA: No aneurysm or dissection. LUNG: No focal consolidation, nodules or masses. PLEURA: No pleural effusion or pneumothorax. MEDIASTINUM: Normal heart size. No pericardial effusion. No hilar or mediastinal lymphadenopathy. No evidence of septal bowing or right heart strain. CHEST WALL/AXILLA: No axillary or internal mammary lymphadenopathy. OSSEOUS STRUCTURES: There are mild degenerative changes of the lower thoracic spine. Spinal stimulator at the T8 vertebral body level.. UPPER ABDOMEN: Unremarkable. No reflux of contrast into the hepatic veins to suggest elevated right heart pressures. CT/CT angio chest PE protocol IMPRESSION: Limited exam due to timing of intravenous contrast administration. No evidence of large or central pulmonary embolism. Suboptimal evaluation of the smaller segmental and subsegmental pulmonary arteries. There is question of wall thickening or filling defect seen in the proximal left lower lobe pulmonary artery just beyond the takeoff of the superior segment pulmonary artery branch for example coronal reconstructed image 56 and 57 series 12. Repeat exam should be considered if clinically indicated.
[2021-05-04 08:45] VITALS: BP 139/83; PULSE 66; RESP 18; TEMP 36.7; O2SAT 99; BMI 30.9
[2021-05-04 10:04] VITALS: BP 158/94; PULSE 65; RESP 16; TEMP 36.6; O2SAT 99
[2021-05-04 10:34] LABS: MANUAL DIFF FLAG NO
[2021-05-04 10:39] LABS: Basophils Percent Auto 0.5 % (0-2); Eosinophils Absolute Auto 0.1 X10*3/uL (0.0-0.4); Eosinophils Percent Auto 0.8 % (0-4); Hematocrit 47.1 % (42.0-52.0); Hemoglobin 16.3 g/dl (14.0-18.0); Imm Gran Abs Auto 0.04 X10*3/uL (0.00-0.03); Imm Gran Pct Auto 0.5 % (0.0-0.4); Lymphocytes Absolute Auto 2.4 X10*3/uL (1.2-4.9); Lymphocytes Percent Auto 26.5 % (20-40); Mean Corpuscular HGB Conc 34.6 g/dl (31.0-36.0); Mean Corpuscular Hemoglobin 31.7 pg (27.0-33.0); Mean Corpuscular Volume 91.5 fL (80.0-98.0); Mean Platelet Volume 10.3 fL (9.4-12.4); Monocytes Absolute Auto 0.7 X10*3/uL (0.1-1.2); Monocytes Percent Auto 7.9 % (2-11); Neutrophils Absolute Auto 5.7 x10*3/uL (2.0-8.3); Neutrophils Percent Auto 63.8 % (45-73); Platelet Count 267 X10*3/uL (160-400); Red Blood Count 5.15 X10*6/uL (4.60-5.80); Red Cell Distribution Width 12.1 % (11.0-16.0); White Blood Count 8.9 X10*3/uL (4.8-10.8)
[2021-05-04 10:44] LABS: D Dimer 405 NG/ML
[2021-05-04 10:58] LABS: B Type Natriuretic Peptide < 10 pg/mL (<100); Troponin-I High Sensitivity < 3.5 ng/L (<3.5-35.0)
[2021-05-04 11:06] LABS: Alanine Aminotransferase 44 U/L (0-40); Albumin Level 4.3 g/dL (3.5-5.0); Alkaline Phosphatase 120 U/L (39-117); Anion Gap 17 (12-20); Aspartate Amino Transferase 27 U/L (5-37); Bilirubin Total 0.6 mg/dL (0.0-1.0); Blood Urea Nitrogen 13 mg/dL (9-16); Calcium 9.5 mg/dL (8.4-10.2); Carbon Dioxide 22 mmol/L (22-29); Chloride 104 mmol/L (96-108); Creatinine Clr Calc Pharmacy 113.3; Estimated Glomerular Filt Rate > 60; Glucose Random 107 mg/dL (60-115); Potassium 5.1 mmol/L (3.3-5.1); Sodium 138 mmol/L (135-145)
[2021-05-04 11:15] LABS: Influenza A PCR NEGATIVE (Negative); Influenza B PCR NEGATIVE (Negative); Resp Syncy Virus RNA Qual PCR NEGATIVE (Negative); SARS COV2 PCR INHOUSE NEGATIVE (Negative); TSH reflex Free T4 1.95 uIU/mL (0.32-4.0)
--- NOTE | 2021-05-04 12:07 | ED.CHESTPAIN ---
HPI - Chest Pain General Chief Complaint: Chest Pain Stated Complaint: chest pain, lt arm numbness Time Seen by Provider: 05/04/21 09:52 Source: patient Mode of arrival: ambulatory Limitations: no limitations History of Present Illness HPI narrative: 51-year-old male history of smoking and DVT presents to ED for left-sided chest discomfort described as palpitation and left arm tingling that began this morning around 3 am that resolved. Patient states also having cough for the past 2 weeks. Patient not vaccinated against COVID. Patient denies any shortness of breath or chest pain. Patient denies any chest pain referred to the back. Patient denies any shortness of breath on exertion, calf pain, or swelling of lower extremities. Patient states also lower abdominal pain. Patient denies any complaints. denies any recent long travel or any recent surgery. Patient states abdominal discomfort without any nausea, vomiting, or diarrhea. Related Data Previous Rx's Medication Instructions Recorded apixaban 5 mg (74 tabs) tablets in 5 mg PO PER PKG DIR #74 ea 12/17/20 a dose pack (TYFFON DVT-PE Treat 30D Start) diclofenac sodium 1 % topical gel 4 g TOPICAL QID PRN #100 g 12/31/20 (Arthritis Pain (diclofenac)) acetaminophen 500 mg tablet 1,000 mg PO QID PRN #14 tab 04/14/21 (Tylenol Extra Strength) oxycodone 5 mg tablet 5 mg PO Q6H PRN #14 tab 04/14/21 levofloxacin 500 mg tablet 500 mg PO DAILY 7 Days #7 tab 05/02/21 metronidazole 500 mg tablet 500 mg PO Q12H 7 Days #14 tab 05/02/21 Allergies Allergy/AdvReac Type Severity Reaction Status Date / Time No Known Allergies Allergy Verified 04/14/21 19:16 [No Known Allergies*] Review of Systems Review of Systems: Yes all other systems are reviewed and are negative Constitutional: Constitutional: Reports as per HPI and Reports no additional constitutional complaints Eyes: Eyes: Reports as per HPI and Reports no additional eye complaints ENT: Reports system reviewed and no additional complaints, except as documented and Reports as per HPI Cardiovascular: Cardiovascular: Reports as per HPI and Reports no additional cardiovascular complaints Respiratory: Respiratory: Reports as per HPI and Reports no additional respiratory complaints Gastrointestinal: Gastrointestinal: Reports as per HPI and Reports no additional gastrointestinal complaints Comments: Lower abdominal pain Genitourinary: Genitourinary: Reports no additional male genitourinary complaints and Reports as per HPI Musculoskeletal: Musculoskeletal: Reports no additional musculoskeletal complaints and Reports as per HPI Integumentary/Breasts: Skin/Breast: Reports system reviewed and no additional complaints, except as docu and Reports as per HPI Neurologic: Reports system reviewed and no additional complaints, except as documented and Reports as per HPI Psychiatric: Psychiatric: Reports no additional psychiatric complaints and Reports as per HPI [facility] Past Medical History Medical History (Updated 05/04/21 @ 15:26 by DEMOND Waldrop) DVT (deep venous thrombosis) No known health problems Surgical History (Updated 05/02/21 @ 20:48 by Araceli Rangel DO) Previous back surgery Social History Social History Alcohol intake: never Patient Tobacco Use Status: Current everyday Tobacco user Smoked in Last 30 Days: Yes Use of substances other than those prescribed or required for medical reasons: No Advance Directives: No Physical Exam Vital Signs: Vital Signs: Last Vital Signs Temp 97.9 F 05/04/21 10:04 Pulse 63 05/04/21 14:57 Resp 13 05/04/21 14:57 BP 141/92 H 05/04/21 14:57 Pulse Ox 98 05/04/21 14:57 Body Mass Index 30.9 Const: General: cooperative, healthy appearing, comfortable, no acute distress, well developed, alert, awake and Physically active Orientation/consciousness: patient oriented x3 HENMT: Head: Yes normal to inspection, Yes No palpable skull fracture present, Yes normocephalic, Yes atraumatic and No abrasion Eyes: General: appearance normal, both eyes and all related structures Neck: Neck: Yes normal visual inspection, Yes full ROM, Yes no lymphadenopathy, Yes no meningeal signs, Yes trachea midline, Yes supple, No anterior neck swelling and No tender Chest: Chest palpation & inspection: normal inspection of the chest Chest/axillae images: 1. Positive for tenderness on palpation. Negative for any ecchymosis, crepitus, erythema, or shingles. Resp: Effort & Inspection: normal respiratory effort and able to speak in complete sentences Auscultation: clear to auscultation bilaterally Cardio: Jugular venous distension: no JVD Heart sounds: S1 normal heart sound present and S2 normal heart sound present GI: Inspection: Yes normal to inspection and No abdominal wall ecchymosis Palpation (GI): Soft to palpation, not firm, nontender and no guarding : General: No CVA tenderness and Yes no CVA tenderness Back/Spine/Pelvis: Back: no CVA tenderness, No CVA tenderness and No back tenderness Skin: General skin exam: no rashes or lesions noted and elasticity normal Neuro: General: patient oriented x3, gait normal, no meningeal signs and CN's II-XI intact bilaterally Cranial nerves: Yes CN's II-XII intact bilaterally Extrem: Other: Lower extremities negative for any swelling, pitting edema, erythema, or calf tenderness. General: Yes normal to inspection and Yes full ROM Psych: Appearance: grossly normal, well kempt and not disheveled Course Course Course Narrative: Patient has atypical chest pain presentation with with non-vaccinated to julio alicia do basic labs including D-dimer. Due to patient stating palpitation will do thyroid level. Will send troponin x-ray and COVID. Reevaluation(s) Reevaluation #1: Patient presently asymptomatic with negative STEMI EKG. D-dimer elevated was sent for chest CT a abdominal CT scan UA pending. First troponin negative. BNP negative. Reevaluation #2: Patient has both troponin negative. BNP negative for CHF. Her abdominal CT scan came back normal. Chest CTA negative for any large PEs. Chest states possible left pulmonary artery filling defect versus artifact due to IV contrast and timing. Patient presently asymptomatic and is not having any shortness of breath, pleuritic chest pain, hypoxia, tachycardia, or hypotensive. CT scan and case discussed with Dr. Mckeon who states unlikely patient is having small PE and most likely is a artifact and patient is presenlty asymptomatic already on Eliquis so patient is safe for discharge. He states Diagnosis is costochondritis due to the cough and chest wall tenderness on palpation. I agree with plan. Patient informed to return to the ED immediately if she has chest pain on inspiration, shortness of breath, worsening chest pain, coughing up blood, swelling of lower extremities, dizziness, calf pain, syncope, or any other concerning symptoms. Patient informed to continue taking Eliquis. Time: 15:20 MDM - Chest Pain MDM Narrative Medical decision making narrative: Atypical chest pain. Costochondritis. Lab Data Result diagrams: 05/04/21 10:26 05/04/21 10:26 Labs: Lab Results 05/04/21 05/04/21 05/04/21 Range/Units 10:25 10:26 10:26 WBC 8.9 (4.8-10.8) X10*3/uL RBC 5.15 (4.60-5.80) X10*6/uL Hgb 16.3 (14.0-18.0) g/dl Hct 47.1 (42.0-52.0) % MCV 91.5 (80.0-98.0) fL MCH 31.7 (27.0-33.0) pg MCHC 34.6 (31.0-36.0) g/dl RDW 12.1 (11.0-16.0) % Plt Count 267 (160-400) X10*3/uL MPV 10.3 (9.4-12.4) fL Immature Gran % (Auto) 0.5 H (0.0-0.4) % Neut % (Auto) 63.8 (45-73) % Lymph % (Auto) 26.5 (20-40) % [place] % (Auto) 7.9 (2-11) % Eos % (Auto) 0.8 (0-4) % Baso % (Auto) 0.5 (0-2) % Lymph # (Auto) 2.4 (1.2-4.9) X10*3/uL [place] # (Auto) 0.7 (0.1-1.2) X10*3/uL Eos # (Auto) 0.1 (0.0-0.4) X10*3/uL Baso # (Auto) 0.0 (0.0-0.2) X10*3/uL Abs Immat Gran (auto) 0.04 H (0.00-0.03) X10*3/uL Absolute Neuts (auto) 5.7 (2.0-8.3) x10*3/uL Absolute Nucleated RBC 0.000 (0.0-0.012) X10*3/uL Nucleated RBC % (auto) 0.0 (0.0-0.2) /100WBC D-Dimer 405 NG/ML Sodium 138 (135-145) mmol/L Potassium 5.1 (3.3-5.1) mmol/L Chloride 104 (96-108) mmol/L Carbon Dioxide 22 (22-29) mmol/L Anion Gap 17 (12-20) BUN 13 (9-16) mg/dL Creatinine 0.97 (0.5-1.4) mg/dL Estim Creat Clear Calc 113.3 Estimated GFR > 60 Random Glucose 107 (60-115) mg/dL Calcium 9.5 (8.4-10.2) mg/dL Total Bilirubin 0.6 (0.0-1.0) mg/dL AST 27 (5-37) U/L ALT 44 H (0-40) U/L Alkaline Phosphatase 120 H (39-117) U/L Troponin I High Sens (<3.5-35.0) ng/L B-Natriuretic Peptide (<100) pg/mL Total Protein 8.0 (6.5-8.0) g/dL Albumin 4.3 (3.5-5.0) g/dL TSH 1.95 (0.32-4.0) uIU/mL Urine Color Urine Appearance Urine pH (5.0-8.0) Ur Specific [place] (1.005-1.025) Urine Protein (NEG-TRACE) MG/DL Urine Glucose (UA) (NEG) MG/DL Urine Ketones (NEG) MG/DL Urine Blood (NEG) Urine Nitrite (NEG) Ur Leukocyte Esterase (NEG) Influenza Type A (PCR) (Negative) Influenza Type B (PCR) (Negative) RSV RNA Qual (PCR) (Negative) SARS-CoV-2 RNA (RT-PCR) (Negative) 05/04/21 05/04/21 05/04/21 Range/Units 10:26 10:26 12:02 WBC (4.8-10.8) X10*3/uL RBC (4.60-5.80) X10*6/uL Hgb (14.0-18.0) g/dl Hct (42.0-52.0) % MCV (80.0-98.0) fL MCH (27.0-33.0) pg MCHC (31.0-36.0) g/dl RDW (11.0-16.0) % Plt Count (160-400) X10*3/uL MPV (9.4-12.4) fL Immature Gran % (Auto) (0.0-0.4) % Neut % (Auto) (45-73) % Lymph % (Auto) (20-40) % [place] % (Auto) (2-11) % Eos % (Auto) (0-4) % Baso % (Auto) (0-2) % Lymph # (Auto) (1.2-4.9) X10*3/uL [place] # (Auto) (0.1-1.2) X10*3/uL Eos # (Auto) (0.0-0.4) X10*3/uL Baso # (Auto) (0.0-0.2) X10*3/uL Abs Immat Gran (auto) (0.00-0.03) X10*3/uL Absolute Neuts (auto) (2.0-8.3) x10*3/uL Absolute Nucleated RBC (0.0-0.012) X10*3/uL Nucleated RBC % (auto) (0.0-0.2) /100WBC D-Dimer NG/ML Sodium (135-145) mmol/L Potassium (3.3-5.1) mmol/L Chloride (96-108) mmol/L Carbon Dioxide (22-29) mmol/L Anion Gap (12-20) BUN (9-16) mg/dL Creatinine (0.5-1.4) mg/dL Estim Creat Clear Calc Estimated GFR Random Glucose (60-115) mg/dL Calcium (8.4-10.2) mg/dL Total Bilirubin (0.0-1.0) mg/dL AST (5-37) U/L ALT (0-40) U/L Alkaline Phosphatase (39-117) U/L Troponin I High Sens < 3.5 (<3.5-35.0) ng/L B-Natriuretic Peptide < 10 (<100) pg/mL Total Protein (6.5-8.0) g/dL Albumin (3.5-5.0) g/dL TSH (0.32-4.0) uIU/mL Urine Color YELLOW Urine Appearance CLEAR Urine pH 7.0 (5.0-8.0) Ur Specific [place] 1.010 (1.005-1.025) Urine Protein NEG (NEG-TRACE) MG/DL Urine Glucose (UA) NEG (NEG) MG/DL Urine Ketones NEG (NEG) MG/DL Urine Blood NEG (NEG) Urine Nitrite NEG (NEG) Ur Leukocyte Esterase NEG (NEG) Influenza Type A (PCR) NEGATIVE (Negative) Influenza Type B (PCR) NEGATIVE (Negative) RSV RNA Qual (PCR) NEGATIVE (Negative) SARS-CoV-2 RNA (RT-PCR) NEGATIVE (Negative) 05/04/21 Range/Units 13:20 WBC (4.8-10.8) X10*3/uL RBC (4.60-5.80) X10*6/uL Hgb (14.0-18.0) g/dl Hct (42.0-52.0) % MCV (80.0-98.0) fL MCH (27.0-33.0) pg MCHC (31.0-36.0) g/dl RDW (11.0-16.0) % Plt Count (160-400) X10*3/uL MPV (9.4-12.4) fL Immature Gran % (Auto) (0.0-0.4) % Neut % (Auto) (45-73) % Lymph % (Auto) (20-40) % [place] % (Auto) (2-11) % Eos % (Auto) (0-4) % Baso % (Auto) (0-2) % Lymph # (Auto) (1.2-4.9) X10*3/uL [place] # (Auto) (0.1-1.2) X10*3/uL Eos # (Auto) (0.0-0.4) X10*3/uL Baso # (Auto) (0.0-0.2) X10*3/uL Abs Immat Gran (auto) (0.00-0.03) X10*3/uL Absolute Neuts (auto) (2.0-8.3) x10*3/uL Absolute Nucleated RBC (0.0-0.012) X10*3/uL Nucleated RBC % (auto) (0.0-0.2) /100WBC D-Dimer NG/ML Sodium (135-145) mmol/L Potassium (3.3-5.1) mmol/L Chloride (96-108) mmol/L Carbon Dioxide (22-29) mmol/L Anion Gap (12-20) BUN (9-16) mg/dL Creatinine (0.5-1.4) mg/dL Estim Creat Clear Calc Estimated GFR Random Glucose (60-115) mg/dL Calcium (8.4-10.2) mg/dL Total Bilirubin (0.0-1.0) mg/dL AST (5-37) U/L ALT (0-40) U/L Alkaline Phosphatase (39-117) U/L Troponin I High Sens < 3.5 (<3.5-35.0) ng/L B-Natriuretic Peptide (<100) pg/mL Total Protein (6.5-8.0) g/dL Albumin (3.5-5.0) g/dL TSH (0.32-4.0) uIU/mL Urine Color Urine Appearance Urine pH (5.0-8.0) Ur Specific [place] (1.005-1.025) Urine Protein (NEG-TRACE) MG/DL Urine Glucose (UA) (NEG) MG/DL Urine Ketones (NEG) MG/DL Urine Blood (NEG) Urine Nitrite (NEG) Ur Leukocyte Esterase (NEG) Influenza Type A (PCR) (Negative) Influenza Type B (PCR) (Negative) RSV RNA Qual (PCR) (Negative) SARS-CoV-2 RNA (RT-PCR) (Negative) ECG Data ECG #1: Interpretation: Normal sinus rhythm. Normal EKG. Ventricular rate 77. Pr interval 164. QRS 84. QTC 427. Negative straight Discharge Plan Discharge Clinical Impression: Atypical chest pain, Costochondritis, acute Patient Disposition: Home, Self-Care Instructions: Chest Pain (ED), Chest Wall Pain (ED) Additional Instructions: Dianna an?lisis de angelo y ECG resultaron negativos para ataque card?aco y negativos para insuficiencia card?jeancarlos congestiva. Hawley hisopo COVID result? negativo y la radiograf?a de t?rax result? negativa para neumon?a. Hawley an?lisis de orina result? negativo para UTI. Y hawley tomograf?a computarizada abdominal result? normal y negativa para cualquier emergencia m?dica o quir?rgica. Tomograf?a computarizada negativa para embolia pulmonar. Contin?e tomando Eliquis seg?n lo prescrito. Regrese al servicio de urgencias de inmediato si tiene dificultad para respirar al hacer ejercicio, dolor en el pecho que empeora / regresa, dolor en el pecho al inspirar, hinchaz?n de las extremidades inferiores, dolor en la pantorrilla, tos con angelo, fiebre, escalofr?os, hinchaz?n de la extremidad superior izquierda, enrojecimiento o cualquier otro s?ntoma relacionado . Sonia un seguimiento con hawley proveedor de atenci?n primaria. Prescriptions: No Action Eliquis DVT-PE Treat 30D Start 5 mg (74 tabs) tablets,dose pack 5 mg PO PER PKG DIR Qty: 74 RF: 0 diclofenac sodium [Arthritis Pain (diclofenac)] 1 % gel 4 g topical QID PRN (Reason: pain) Qty: 100 RF: 0 acetaminophen [Tylenol Extra Strength] 500 mg tablet 1,000 mg PO QID PRN (Reason: fever or pain) Qty: 14 RF: 0 oxycodone 5 mg tablet 5 mg PO Q6H PRN (Reason: pain) Qty: 14 RF: 0 levofloxacin 500 mg tablet 500 mg PO DAILY 7 Days Qty: 7 RF: 0 metronidazole 500 mg tablet 500 mg PO Q12H 7 Days Qty: 14 RF: 0 Interventions: ED Discharge Assessment Last Done: 05/04/21 15:40 Discharge Date/Time: 05/04/21 15:41 Print Language: Monegasque
[2021-05-04 12:22] LABS: Appearance Urine CLEAR; Color Urine YELLOW; Glucose Urine UA NEG (NEG); Leukocyte Esterase Urine NEG (NEG); Nitrite Urine NEG (NEG); Urine Blood NEG (NEG); Urine Ketones NEG (NEG); Urine Protein NEG (NEG-TRACE)
[2021-05-04] MEDS: iohexoL 350 MG/ML 100 ML INFUS..BTL IV (12:46)
[2021-05-04 12:49] VITALS: BP 139/87; PULSE 74; RESP 15
[2021-05-04 13:57] LABS: Troponin-I High Sensitivity < 3.5 ng/L (<3.5-35.0)
[2021-05-04 14:57] VITALS: BP 141/92; PULSE 63; RESP 13; O2SAT 98
[2021-05-04] MEDS: Acetaminophen 325 MG TABLET 650 MG PO (14:59)
== END 2021-05-04 15:41 | disposition home or self-care (01) ==
PROVIDERS: Physician Assistant; Emergency Provider Emergency Medicine Emergency Medical Services; PCP Family Medicine
DX: M94.0 Chondrocostal junction syndrome [Tietze] (principal); F17.200 Nicotine dependence, unspecified, uncomplicated; Z20.822 Contact with and (suspected) exposure to COVID-19; Z71.6 Tobacco abuse counseling; Z79.899 Other long term (current) drug therapy
CPT/HCPCS: 0241U; 36415; 71045; 71275; 74177; 80053; 81003; 83880; 84443; 84484; 85025; 85379; 93005; 99284; 99285; Q9967

== ENCOUNTER 2021-05-31 20:58 | Emergency (ER) | payer MEDICARE, MEDICAID, SELFPAY ==
[2021-05-31 21:35] VITALS: BP 184/118; PULSE 76; RESP 18; TEMP 36.9; O2SAT 97; BMI 31.0
[2021-05-31 21:57] LABS: Appearance Urine CLEAR; Color Urine YELLOW; Glucose Urine UA NEG (NEG); Leukocyte Esterase Urine NEG (NEG); Nitrite Urine NEG (NEG); UACC Culture Trigger NO; Urine Blood TRACE (NEG); Urine Ketones NEG (NEG); Urine Protein NEG (NEG-TRACE)
[2021-05-31 22:09] LABS: Squamous Epithelial Cell Urine TRACE /LPF; WBC Urine 0-2 /HPF (0-4)
[2021-05-31 23:33] VITALS: BP 125/74; PULSE 62; RESP 20; O2SAT 97
[2021-06-01 01:01] LABS: MANUAL DIFF FLAG NO
[2021-06-01 01:02] LABS: Basophils Absolute Auto 0.1 X10*3/uL (0.0-0.2); Basophils Percent Auto 0.4 % (0-2); Eosinophils Absolute Auto 0.2 X10*3/uL (0.0-0.4); Eosinophils Percent Auto 2.1 % (0-4); Hematocrit 44.8 % (42.0-52.0); Hemoglobin 15.8 g/dl (14.0-18.0); Imm Gran Abs Auto 0.04 X10*3/uL (0.00-0.03); Imm Gran Pct Auto 0.4 % (0.0-0.4); Lymphocytes Absolute Auto 4.6 X10*3/uL (1.2-4.9); Lymphocytes Percent Auto 40.4 % (20-40); Mean Corpuscular HGB Conc 35.3 g/dl (31.0-36.0); Mean Corpuscular Hemoglobin 31.8 pg (27.0-33.0); Mean Corpuscular Volume 90.1 fL (80.0-98.0); Mean Platelet Volume 9.8 fL (9.4-12.4); Monocytes Absolute Auto 0.9 X10*3/uL (0.1-1.2); Neutrophils Absolute Auto 5.5 x10*3/uL (2.0-8.3); Neutrophils Percent Auto 48.7 % (45-73); Platelet Count 235 X10*3/uL (160-400); Red Blood Count 4.97 X10*6/uL (4.60-5.80); White Blood Count 11.4 X10*3/uL (4.8-10.8)
[2021-06-01 01:18] LABS: Alanine Aminotransferase 43 U/L (0-40); Albumin Level 4.4 g/dL (3.5-5.0); Alkaline Phosphatase 110 U/L (39-117); Anion Gap 12 (12-20); Aspartate Amino Transferase 21 U/L (5-37); Bilirubin Total 0.3 mg/dL (0.0-1.0); Blood Urea Nitrogen 12 mg/dL (9-16); Calcium 9.8 mg/dL (8.4-10.2); Carbon Dioxide 27 mmol/L (22-29); Chloride 104 mmol/L (96-108); Creatinine Clr Calc Pharmacy 107.9; Estimated Glomerular Filt Rate > 60; Glucose Random 94 mg/dL (60-115); Potassium 4.3 mmol/L (3.3-5.1); Sodium 139 mmol/L (135-145); Total Protein 7.7 g/dL (6.5-8.0)
[2021-06-01] MEDS: HYDROmorphone HCl 0.5 MG/0.5 ML SYRINGE IVPUSH (01:25)
--- NOTE | 2021-06-01 01:34 | ED.ABDPAIN ---
HPI - Abdominal Pain General Chief Complaint: Abdominal Pain Stated Complaint: lower abd pain Time Seen by Provider: 06/01/21 01:16 History of Present Illness HPI narrative: Patient is a 51-year-old male presents today with having abdominal pain. The pain is sharp. It is over the right side. It is very similar to previous back pain. Patient was seen here a month ago. At the time had a CT scan of the abdomen. It did not show any acute evidence of obstruction kidney stone appendicitis. Related Data Previous Rx's Medication Instructions Recorded apixaban 5 mg (74 tabs) tablets in 5 mg PO PER PKG DIR #74 ea 12/17/20 a dose pack (BrandBeau DVT-PE Treat 30D Start) diclofenac sodium 1 % topical gel 4 g TOPICAL QID PRN #100 g 12/31/20 (Arthritis Pain (diclofenac)) acetaminophen 500 mg tablet 1,000 mg PO QID PRN #14 tab 04/14/21 (Tylenol Extra Strength) oxycodone 5 mg tablet 5 mg PO Q6H PRN #14 tab 04/14/21 levofloxacin 500 mg tablet 500 mg PO DAILY 7 Days #7 tab 05/02/21 metronidazole 500 mg tablet 500 mg PO Q12H 7 Days #14 tab 05/02/21 Allergies Allergy/AdvReac Type Severity Reaction Status Date / Time No Known Allergies Allergy Verified 05/31/21 21:34 [No Known Allergies*] Review of Systems Review of Systems No fever no chills no chest pain or diaphoresis Yes all other systems are reviewed and are negative Physical Exam Vital Signs: Vital Signs: Last Vital Signs Temp 98.5 F 05/31/21 21:35 Pulse 62 05/31/21 23:33 Resp 20 05/31/21 23:33 BP 125/74 05/31/21 23:33 Pulse Ox 97 05/31/21 23:33 BMI result Body Mass Index 31.0 Appearance: Alert. Oriented X3. No acute distress. Eyes: Pupils equal, round and reactive to light. ENT: Pharynx normal. Neck: Normal inspection. Neck supple. No lymph nodes noted. No crepitus CVS: Normal heart rate and rhythm. Pulses normal. Normal S1 and S2 Respiratory: No respiratory distress. Breath sounds normal. No Wheezing. No rales Abdomen: Soft and nontender. No rigidity. No distention. good BS x4 Skin: Skin warm and dry. Normal skin color. Normal skin turgor. Extremities: No lower extremity edema. Neurovascular intact to all extremities. No Lacerations. No Rash Neuro: Oriented X 3. No motor deficit. No sensory deficit. Moving all extermities. No slurred speech MDM - Abdominal Pain MDM Narrative Medical decision making narrative: Patient had a CT scan done 1 month ago was grossly negative for any acute finding no kidney stone. Unlikely to have kidney stone at this time. Urine was negative for infection. Liver panel is negative. Lipase is normal. White count slightly elevated 11. Repeat abdominal exam is soft. Unlikely this is appendicitis. Patient states the pain is the same as the last episode. Will have patient follow-up on an outpatient basis elected not to do a 2nd CT scan given 1 was done a month ago. Patient in stable condition will discharge home Lab Data Result diagrams: 06/01/21 00:56 06/01/21 00:56 Labs: Lab Results 05/31/21 06/01/21 06/01/21 Range/Units 21:43 00:56 00:56 WBC 11.4 H (4.8-10.8) X10*3/uL RBC 4.97 (4.60-5.80) X10*6/uL Hgb 15.8 (14.0-18.0) g/dl Hct 44.8 (42.0-52.0) % MCV 90.1 (80.0-98.0) fL MCH 31.8 (27.0-33.0) pg MCHC 35.3 (31.0-36.0) g/dl RDW 12.0 (11.0-16.0) % Plt Count 235 (160-400) X10*3/uL MPV 9.8 (9.4-12.4) fL Immature Gran % (Auto) 0.4 (0.0-0.4) % Neut % (Auto) 48.7 (45-73) % Lymph % (Auto) 40.4 H (20-40) % [place] % (Auto) 8.0 (2-11) % Eos % (Auto) 2.1 (0-4) % Baso % (Auto) 0.4 (0-2) % Lymph # (Auto) 4.6 (1.2-4.9) X10*3/uL [place] # (Auto) 0.9 (0.1-1.2) X10*3/uL Eos # (Auto) 0.2 (0.0-0.4) X10*3/uL Baso # (Auto) 0.1 (0.0-0.2) X10*3/uL Abs Immat Gran (auto) 0.04 H (0.00-0.03) X10*3/uL Absolute Neuts (auto) 5.5 (2.0-8.3) x10*3/uL Absolute Nucleated RBC 0.000 (0.0-0.012) X10*3/uL Nucleated RBC % (auto) 0.0 (0.0-0.2) /100WBC Sodium 139 (135-145) mmol/L Potassium 4.3 (3.3-5.1) mmol/L Chloride 104 (96-108) mmol/L Carbon Dioxide 27 (22-29) mmol/L Anion Gap 12 (12-20) BUN 12 (9-16) mg/dL Creatinine 1.02 (0.5-1.4) mg/dL Estim Creat Clear Calc 107.9 Estimated GFR > 60 Random Glucose 94 (60-115) mg/dL Calcium 9.8 (8.4-10.2) mg/dL Total Bilirubin 0.3 (0.0-1.0) mg/dL AST 21 (5-37) U/L ALT 43 H (0-40) U/L Alkaline Phosphatase 110 (39-117) U/L Total Protein 7.7 (6.5-8.0) g/dL Albumin 4.4 (3.5-5.0) g/dL Urine Color YELLOW Urine Appearance CLEAR Urine pH 6.0 (5.0-8.0) Ur Specific [place] 1.020 (1.005-1.025) Urine Protein NEG (NEG-TRACE) MG/DL Urine Glucose (UA) NEG (NEG) MG/DL Urine Ketones NEG (NEG) MG/DL Urine Blood TRACE (NEG) Urine Nitrite NEG (NEG) Ur Leukocyte Esterase NEG (NEG) Urine RBC 1-4 (0) /HPF Urine WBC 0-2 (0-4) /HPF Ur Squamous Epith Cells TRACE /LPF Urine Bacteria NONE /LPF Discharge Plan Discharge Clinical Impression: Abdominal pain Prescriptions: No Action Eliquis DVT-PE Treat 30D Start 5 mg (74 tabs) tablets,dose pack 5 mg PO PER PKG DIR Qty: 74 RF: 0 diclofenac sodium [Arthritis Pain (diclofenac)] 1 % gel 4 g topical QID PRN (Reason: pain) Qty: 100 RF: 0 acetaminophen [Tylenol Extra Strength] 500 mg tablet 1,000 mg PO QID PRN (Reason: fever or pain) Qty: 14 RF: 0 oxycodone 5 mg tablet 5 mg PO Q6H PRN (Reason: pain) Qty: 14 RF: 0 levofloxacin 500 mg tablet 500 mg PO DAILY 7 Days Qty: 7 RF: 0 metronidazole 500 mg tablet 500 mg PO Q12H 7 Days Qty: 14 RF: 0 PMFSH Past Medical History Attestation statement: The following information was validated with the patient. Medical History DVT (deep venous thrombosis) Surgical History Previous back surgery Social History Social History Alcohol intake: never Patient Tobacco Use Status: Current everyday Tobacco user Advance Directives: No Advance Directives Information Provided: Yes
== END 2021-06-01 02:33 | disposition home or self-care (01) ==
PROVIDERS: Emergency Provider Emergency Medicine Emergency Medical Services
DX: R10.9 Unspecified abdominal pain (principal); Z86.718 Personal history of other venous thrombosis and embolism
CPT/HCPCS: 36415; 80053; 81001; 85025; 96374; 99284; J1170

== ENCOUNTER 2021-06-07 07:49 | Emergency (ER) | payer MEDICARE, MEDICAID, SELFPAY ==
[2021-06-07 07:55] VITALS: BP 185/112; PULSE 88; RESP 20; TEMP 36.3; O2SAT 95; BMI 29.8
[2021-06-07 10:51] VITALS: BP 142/91; PULSE 69; RESP 14; TEMP 36.6; O2SAT 99
[2021-06-07] MEDS: oxyCODONE HCl Immed Release 5 MG TABLET PO (11:05)
[2021-06-07] MEDS: predniSONE 20 MG TABLET 60 MG PO (11:06)
[2021-06-07] MEDS: diazePAM 5 MG TABLET PO (11:06)
--- NOTE | 2021-06-07 11:45 | ED_ITS ---
HPI - General Adult General Chief complaint: Back Pain/Injury Stated complaint: back pain Time Seen by Provider: 06/07/21 10:28 Source: patient Mode of arrival: ambulatory Limitations: no limitations History of Present Illness HPI narrative: Patient presents to ED for chronic back pain. Patient states history of severe arthritis and disc herniation. Patient states she was prescribed lidocaine patch but was not able to pick it up because pharmacy states he required prior authorization. Patient states chronic back pain for months. Patient denies any new trauma, nausea, vomiting abdominal pain, dysuria, hematuria, fever, chills, or any urinary/bowel incontinence. Patient denies any history of IV drug use or HIV/hep C or any immunocompromised disease. Related Data Previous Rx's Medication Instructions Recorded apixaban 5 mg (74 tabs) tablets in 5 mg PO PER PKG DIR #74 ea 12/17/20 a dose pack ([employer] DVT-PE Treat 30D Start) diclofenac sodium 1 % topical gel 4 g TOPICAL QID PRN #100 g 12/31/20 (Arthritis Pain (diclofenac)) acetaminophen 500 mg tablet 1,000 mg PO QID PRN #14 tab 04/14/21 (Tylenol Extra Strength) oxycodone 5 mg tablet 5 mg PO Q6H PRN #14 tab 04/14/21 levofloxacin 500 mg tablet 500 mg PO DAILY 7 Days #7 tab 05/02/21 metronidazole 500 mg tablet 500 mg PO Q12H 7 Days #14 tab 05/02/21 lidocaine 5 % topical patch 1 patch TOPICAL DAILY PRN #15 ea 06/01/21 (Lidoderm) cyclobenzaprine 10 mg tablet 10 mg PO TID PRN #21 tab 06/07/21 lidocaine 4 % topical patch 1 patch TOPICAL DAILY PRN #10 ea 06/07/21 oxycodone-acetaminophen 5 mg-325 1 tab PO TID PRN #9 tab 06/07/21 mg tablet (Percocet) prednisone 20 mg tablet 60 mg PO DAILY 5 Days #15 tab 06/07/21 Allergies Allergy/AdvReac Type Severity Reaction Status Date / Time No Known Allergies Allergy Verified 05/31/21 21:34 [No Known Allergies*] Review of Systems Review of Systems: Yes all other systems are reviewed and are negative Constitutional: Constitutional: Reports as per HPI and Reports no additional constitutional complaints Eyes: Eyes: Reports as per HPI and Reports no additional eye complaints ENT: Reports system reviewed and no additional complaints, except as documented and Reports as per HPI Cardiovascular: Cardiovascular: Reports as per HPI and Reports no additional cardiovascular complaints Respiratory: Respiratory: Reports as per HPI and Reports no additional respiratory complaints Gastrointestinal: Gastrointestinal: Reports as per HPI and Reports no additional gastrointestinal complaints Genitourinary: Genitourinary: Reports no additional male genitourinary complaints and Reports as per HPI Musculoskeletal: Musculoskeletal: Reports no additional musculoskeletal complaints, Reports as per HPI and Reports back pain [facility] Past Medical History Medical History DVT (deep venous thrombosis) Surgical History Previous back surgery Social History Social History Alcohol intake: never Patient Tobacco Use Status: Current everyday Tobacco user Use of substances other than those prescribed or required for medical reasons: No Advance Directives: No Advance Directives Information Provided: Yes Physical Exam Vital Signs: Vital Signs: Last Vital Signs Temp 97.8 F 06/07/21 10:51 Pulse 54 06/07/21 12:11 Resp 18 06/07/21 12:11 BP 112/67 06/07/21 12:11 Pulse Ox 96 06/07/21 12:11 BMI result Body Mass Index 29.8 Const: General: cooperative, healthy appearing, comfortable, no acute distress, well developed, alert, awake and Physically active Orientation/consciousness: patient oriented x3 HENMT: Head: Yes normal to inspection, Yes No palpable skull fracture present, Yes normocephalic, Yes atraumatic and No abrasion Eyes: General: appearance normal, both eyes and all related structures Neck: Neck: Yes normal visual inspection, Yes full ROM, Yes no lymphadenopathy, Yes no meningeal signs, Yes trachea midline, Yes supple, No anterior neck swelling and No tender Chest: Chest palpation & inspection: normal inspection of the chest and normal palpation of entire chest wall Resp: Effort & Inspection: normal respiratory effort and able to speak in complete sentences Auscultation: clear to auscultation bilaterally Cardio: Jugular venous distension: no JVD Heart sounds: S1 normal heart sound present and S2 normal heart sound present GI: Inspection: Yes normal to inspection and No abdominal wall ecchymosis Palpation (GI): Soft to palpation, not firm, nontender, no guarding and not rigid : General: No CVA tenderness and Yes no CVA tenderness Back/Spine/Pelvis: Back: no CVA tenderness, No CVA tenderness and back tenderness (Lumbar) Skin: General skin exam: no rashes or lesions noted and elasticity normal Neuro: General: patient oriented x3, gait normal, no meningeal signs and CN's II-XI intact bilaterally Extrem: General: Yes normal to inspection and Yes full ROM Psych: Appearance: grossly normal, well kempt and not disheveled Course Course Course Narrative: Chronic back pain Reevaluation(s) Reevaluation #1: No new imaging indicated patient denies any trauma or urinary/bowel incontinence. Not suspecting cauda equina or epidural abscess. Patient's back pain resolved after receiving Valium, Percocet, and prednisone. Patient discharged with pain meds Time: 11:51 Medical Decision Making MDM Narrative Medical decision making narrative: chronic back pain Discharge Plan Discharge Clinical Impression: Lumbar radiculopathy, Degenerative joint disease (DJD) of lumbar spine Patient Disposition: Home, Self-Care Instructions: Lumbar Radiculopathy (ED) Additional Instructions: Return to the ED for urinary/bowel incontinence, worsening back pain, dysuria, hematuria, nausea, vomiting, abdominal pain, fever, chills, weakness, dizziness, inability to walk, or any other concerning symptoms. Please follow-up with primary care provider for referral to physical therapy, pain management, or spine surgeon. Prescriptions: New oxycodone-acetaminophen [Percocet] 5-325 mg tablet 1 tab PO TID PRN (Reason: pain) Qty: 9 RF: 0 prednisone 20 mg tablet 60 mg PO DAILY 5 Days Qty: 15 RF: 0 cyclobenzaprine 10 mg tablet 10 mg PO TID PRN (Reason: pain) Qty: 21 RF: 0 lidocaine 4 % adhesive patch,medicated 1 patch topical DAILY PRN (Reason: pain) Qty: 10 RF: 0 No Action Eliquis DVT-PE Treat 30D Start 5 mg (74 tabs) tablets,dose pack 5 mg PO PER PKG DIR Qty: 74 RF: 0 diclofenac sodium [Arthritis Pain (diclofenac)] 1 % gel 4 g topical QID PRN (Reason: pain) Qty: 100 RF: 0 acetaminophen [Tylenol Extra Strength] 500 mg tablet 1,000 mg PO QID PRN (Reason: fever or pain) Qty: 14 RF: 0 oxycodone 5 mg tablet 5 mg PO Q6H PRN (Reason: pain) Qty: 14 RF: 0 levofloxacin 500 mg tablet 500 mg PO DAILY 7 Days Qty: 7 RF: 0 metronidazole 500 mg tablet 500 mg PO Q12H 7 Days Qty: 14 RF: 0 lidocaine [Lidoderm] 5 % adhesive patch,medicated 1 patch topical DAILY PRN (Reason: pain) Qty: 15 RF: 0 Stand Alone Forms: Work/School Release Interventions: ED Discharge Assessment Last Done: 06/07/21 12:33 Discharge Date/Time: 06/07/21 12:49 Print Language: Colombian
[2021-06-07 12:11] VITALS: BP 112/67; PULSE 54; RESP 18; O2SAT 96
[2021-06-07] MEDS: Apixaban 5 MG TABLET PO (12:11)
== END 2021-06-07 12:49 | disposition home or self-care (01) ==
PROVIDERS: Emergency Provider Emergency Medicine
DX: M47.26 Other spondylosis with radiculopathy, lumbar region (principal); M54.50 Low back pain, unspecified; Z86.718 Personal history of other venous thrombosis and embolism; Z79.01 Long term (current) use of 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
CPT/HCPCS: 99283; 99284

== ENCOUNTER 2021-10-25 08:24 | Emergency (ER) | payer OTHER, SELFPAY ==
[2021-10-25 08:27] VITALS: BP 170/101; PULSE 90; RESP 18; TEMP 36.6; O2SAT 99; BMI 30.9
--- NOTE | 2021-10-25 10:40 | PC.NURSE ---
pt not in room when ct scan staff came to get patient.
--- NOTE | 2021-10-25 11:12 | ED.BACK ---
HPI - Back Pain/Injury General Chief Complaint: Back Pain/Injury Stated Complaint: Upper back pain Time Seen by Provider: 10/25/21 09:11 Source: patient and family ( at bedside) Mode of arrival: ambulatory Limitations: no limitations History of Present Illness HPI Narrative: 51-year-old male with a past medical history of chronic back pain where he reports he has severe arthritis and disc herniations and he had a neurostimulator placed to his back approximately 11 years ago and the battery replaced approximately 2 months ago being followed by pain management presenting to the ED with complaints of progressively worsening mid back pain despite having his neurostimulator in place and his multiple pain medications that he reports he has 5 mg oxycodone and even has morphine and no symptomatic relief. Reports that he has pain management appointment on 10/27/2021 although he cannot wait any longer and he wants something stronger for pain and he also wants a CT scan of his back due to he reports he cannot have an MRI because he wants to see what is wrong with his back. He denies any fevers, chest pain, shortness of breath, paresthesias, saddle anesthesia, urinary or bowel incontinence or retention, IV drug use or any other symptoms complaints or concerns at this time. MD elicited complaint: back pain Pertinent past history: prior back pain and back surgery (Has neurostimulator in place) Onset (ago): month(s) Timing: constant and progressively worsening Severity: severe Similar Symptoms Previously: Yes Quality: aching Location: thoracic spine Radiation: none Exacerbating factors: movement, walking and lifting Relieving factors: none Context: unknown Associated symptoms: denies other symptoms Work related injury: No Related Data Previous Rx's Medication Instructions Recorded apixaban 5 mg (74 tabs) tablets in 5 mg PO PER PKG DIR #74 ea 12/17/20 a dose pack (Eliquis DVT-PE Treat 30D Start) diclofenac sodium 1 % topical gel 4 g TOPICAL QID PRN #100 g 12/31/20 (Arthritis Pain (diclofenac)) acetaminophen 500 mg tablet 1,000 mg PO QID PRN #14 tab 04/14/21 (Tylenol Extra Strength) oxycodone 5 mg tablet 5 mg PO Q6H PRN #14 tab 04/14/21 levofloxacin 500 mg tablet 500 mg PO DAILY 7 Days #7 tab 05/02/21 metronidazole 500 mg tablet 500 mg PO Q12H 7 Days #14 tab 05/02/21 lidocaine 5 % topical patch 1 patch TOPICAL DAILY PRN #15 ea 06/01/21 (Lidoderm) cyclobenzaprine 10 mg tablet 10 mg PO TID PRN #21 tab 06/07/21 lidocaine 4 % topical patch 1 patch TOPICAL DAILY PRN #10 ea 06/07/21 oxycodone-acetaminophen 5 mg-325 1 tab PO TID PRN #9 tab 06/07/21 mg tablet (Percocet) prednisone 20 mg tablet 60 mg PO DAILY 5 Days #15 tab 06/07/21 Allergies Allergy/AdvReac Type Severity Reaction Status Date / Time No Known Allergies Allergy Verified 05/31/21 21:34 [No Known Allergies*] Review of Systems Review of Systems: Constitutional : No trauma, No Weight loss, No Fever, No Chills, ENT/Mouth : No Hearing loss, No Ear Pain, No Nasal Congestion, No Sinus Pain, No Hoarseness, No sore throat, No Rhinorrhea, No Swallowing Difficulty Cardiovascular : No Chest Pain, No SOB Respiratory : No Cough, No Dyspnea Gastrointestinal : No Nausea, No Vomiting, No Diarrhea, No abdominal Pain, No Hematochezia, No Melena Genitourinary : No Dysuria, No Urinary Frequency, No Hematuria, No Urinary or Bowel Incontinence/retention Musculoskeletal : + Back pain, No neck pain, No joint stiffness, No joint swelling Skin : No Skin Lesions, No rash or signs of infection Neuro : No Weakness, No radiation, No Numbness, No Paresthesias, No headache, no loss of bowel or bladder incontinence, no saddle anesthesia, Focal weakness, No radiation Denies history of IV drug usage. Yes all other systems are reviewed and are negative [facility] Past Medical History Attestation statement: The following information was validated with the patient. Medical History DVT (deep venous thrombosis) Surgical History Previous back surgery Social History Social History Alcohol intake: never Patient Tobacco Use Status: Current everyday Tobacco user Advance Directives: No Advance Directives Information Provided: No Physical Exam Vital Signs: Vital Signs: Last Vital Signs Temp 97.8 F 10/25/21 08:27 Pulse 90 10/25/21 08:27 Resp 18 10/25/21 08:27 BP 170/101 H 10/25/21 08:27 Pulse Ox 99 10/25/21 08:27 BMI result Body Mass Index 30.9 vital signs have been reviewed as normal and appeared to be correct. Blood pressure 170/101. Heart rate normal. Respiration rate normal. Temperature normal. Oxygen saturation normal. Appearance: Alert. Oriented X3. No acute distress. Head: Normal external exam. Normocephalic. Atraumatic. Eyes: PERRLA. EOMI. Conjunctiva and sclera normal. Eyelids normal. ENT: Pharynx normal. Uvula midline. Moist mucous membranes. No trismus noted. No drooling noted. No muffled voice noted. Neck: Normal inspection. Neck supple. FROM. No adenopathy. Thyroid Normal. No meningeal signs. No neck mass noted. CVS: Normal heart rate and rhythm. Heart sound normal. No murmurs noted. Pulses normal throughout. Respiratory: No respiratory distress. Painless inspiration. Breath sounds normal. No wheezes/rales/rhonchi noted. Chest nontender. No accessory muscle usage noted or decreased air movement noted. Abdomen: Soft and nontender. Bowel sounds normal in all 4 quadrants. No distention noted. No organomegaly noted. No visible injury noted. Back: No CVA tenderness. Full range of motion noted. No obvious deformities, or edema. Mild para-spinal muscular tenderness and mid thoracic spinal tenderness noted. Full ROM in back and lower extremities. 5/5 strength hip extension/flexion, abduction, adduction. Mild Lumbar pain with hip flexion against resistance. Straight leg raise test negative on right; Straight leg raise test negative on left; Reflexes normal ankle and knee bilaterally; EHL motor strength normal bilaterally. No rashes/lesion/induration/fluctuance or signs infection noted. Skin: Skin warm and dry. Normal skin color. Normal skin turgor. No rashes/lesions/lacerations noted. Extremities: No lower extremity edema. Extremities exhibit normal range of motion. Extremities nontender. Neuro: Oriented X 3. No motor deficit. No sensory deficit. Reflexes normal. Patient has a normal steady gait. Course Course Course Narrative: Pt c likely muscular pain, but could be herniated disc. Neuro exam shows no deficits. Not c/w AAA/epidural abscess/dissection.No high risk Hx (Incont, fever, immunosupp, recent surgery/LP, coag, signif trauma, wt loss, puls mass, hx/o Ca, TB, or IVDU) to warrant MRI. Not c/w Pyelo/UTI/kidney stone/spinal fx. Not cauda equina syndrome. I did not believe imaging was indicated although patient was requesting a CT scan of his thoracic spine so he can bring his reports to his pain management appointment on 10/27/2021. I did ordered the CT scan and then the patient eloped. MDM - Back Pain/Injury Medical Records Attestation: I reviewed the patient's medical records. Discharge Plan Discharge Clinical Impression: Chronic midline thoracic back pain Patient Disposition: Elopement Prescriptions: No Action [place] DVT-PE Treat 30D Start 5 mg (74 tabs) tablets,dose pack 5 mg PO PER PKG DIR Qty: 74 0RF diclofenac sodium [Arthritis Pain (diclofenac)] 1 % gel 4 g topical QID PRN (Reason: pain) Qty: 100 0RF oxycodone-acetaminophen [Percocet] 5-325 mg tablet 1 tab PO TID PRN (Reason: pain) Qty: 9 0RF prednisone 20 mg tablet 60 mg PO DAILY 5 Days Qty: 15 0RF cyclobenzaprine 10 mg tablet 10 mg PO TID PRN (Reason: pain) Qty: 21 0RF Rx Instructions: side effect is drowsiness. Do not take at work or while driving. lidocaine 4 % adhesive patch,medicated 1 patch topical DAILY PRN (Reason: pain) Qty: 10 0RF acetaminophen [Tylenol Extra Strength] 500 mg tablet 1,000 mg PO QID PRN (Reason: fever or pain) Qty: 14 0RF oxycodone 5 mg tablet 5 mg PO Q6H PRN (Reason: pain) Qty: 14 0RF levofloxacin 500 mg tablet 500 mg PO DAILY 7 Days Qty: 7 0RF metronidazole 500 mg tablet 500 mg PO Q12H 7 Days Qty: 14 0RF lidocaine [Lidoderm] 5 % adhesive patch,medicated 1 patch topical DAILY PRN (Reason: pain) Qty: 15 0RF Rx Instructions: leave on most painful area for up to 12 hrs Discharge Date/Time: 10/25/21 10:46
== END 2021-10-25 10:46 | disposition left against medical advice (07) ==
PROVIDERS: Emergency Provider Emergency Medicine; PCP Family Medicine
DX: M54.6 Pain in thoracic spine (principal); G89.29 Other chronic pain; Z96.82 Presence of neurostimulator
CPT/HCPCS: 99282

== ENCOUNTER 2022-06-01 02:44 | Emergency (ER) | payer OTHER, SELFPAY ==
[2022-06-01] VITALS (7 sets, daily range): BP systolic 105–150; BP diastolic 66–79; PULSE 56–88; RESP 12–18; TEMP 36.1–36.7; O2SAT 95–100; BMI 25.7
[2022-06-01] MEDS: Midazolam HCl/PF 2 MG/2 ML VIAL 4 MG IVPUSH (03:00)
--- NOTE | 2022-06-01 03:36 | ED_ITS ---
HPI - Anxiety General Chief Complaint: Anxiety Stated Complaint: emotional distress Time Seen by Provider: 06/01/22 03:29 Source: patient Mode of arrival: ambulatory Limitations: no limitations History of Present Illness HPI narrative: 52-year-old male who presents emergency department for evaluation anxiety/stress reaction. The patient got a call this morning from [place] stating that his son . Apparently immediately after getting the called patient became very upset and then passed out. The patient then woke up but was not talking, was very tremulous therefore his family called an ambulance. Presentation to the emergency department the patient is able to talk but is very tremulous, he is tearful and appears upset. He denies headache, nausea, vomiting, chest pain or shortness of breath. Patient does have a history of hypertension, right lower extremity DVT 2 years prior on Eliquis. Related Data Previous Rx's Medication Instructions Recorded apixaban 5 mg (74 tabs) tablets in 5 mg PO PER PKG DIR #74 ea 12/17/20 a dose pack (Eliquis DVT-PE Treat 30D Start) diclofenac sodium 1 % topical gel 4 g topical QID PRN pain #100 grams 12/31/20 (Arthritis Pain (diclofenac)) acetaminophen 500 mg tablet 1,000 mg PO QID PRN fever or pain 04/14/21 (Tylenol Extra Strength) #14 tabs oxycodone 5 mg tablet 5 mg PO Q6H PRN pain #14 tabs 04/14/21 levofloxacin 500 mg tablet 500 mg PO DAILY 7 days #7 tabs 05/02/21 metronidazole 500 mg tablet 500 mg PO Q12H 7 days #14 tabs 05/02/21 lidocaine 5 % topical patch 1 patch topical DAILY PRN pain #15 06/01/21 (Lidoderm) ea cyclobenzaprine 10 mg tablet 10 mg PO TID PRN pain #21 tabs 06/07/21 lidocaine 4 % topical patch 1 patch topical DAILY PRN pain #10 06/07/21 ea oxycodone-acetaminophen 5 mg-325 1 tab PO TID PRN pain #9 tabs 06/07/21 mg tablet (Percocet) prednisone 20 mg tablet 60 mg PO DAILY 5 days #15 tabs 06/07/21 lorazepam 1 mg tablet (Ativan) 1 mg PO TID PRN anxiety #12 tabs 06/01/22 Allergies Allergy/AdvReac Type Severity Reaction Status Date / Time No Known Allergies Allergy Verified 05/31/21 21:34 [No Known Allergies*] Review of Systems Review of Systems: Yes all other systems are reviewed and are negative [facility] Past Medical History [facility] Narrative: Past medical history: Hypertension, DVT,. Past surgical history: Back surgery. Social history: He does smoke cigarettes. He denies alcohol and drug use. Medical History DVT (deep venous thrombosis) Surgical History Previous back surgery Social History Social History Alcohol intake: never Patient Tobacco Use Status: Current everyday Tobacco user Smoked in Last 30 Days: Yes Use of substances other than those prescribed or required for medical reasons: No Advance Directives: No Advance Directives Information Provided: Yes Physical Exam Vital Signs: Vital Signs: Last Vital Signs Temp 97.9 F 06/01/22 07:14 Pulse 63 06/01/22 07:14 Resp 14 06/01/22 07:14 BP 105/72 06/01/22 07:14 Pulse Ox 96 06/01/22 07:14 O2 Del Method 06/01/22 07:14 BMI result Body Mass Index 25.7 Const: Other: Awake, alert, male patient, it appears to be very anxious, she is tearful, does answer questions appropriately HEENT: Head: Yes normal to inspection, Yes normocephalic and Yes atraumatic Ears: external ears normal General nose exam: Normal external nose present Face and sinus: Yes normal facial exam Mouth: Normal oral and palatal mucosa present Throat: Yes posterior oropharynx normal Eyes: General: appearance normal, both eyes and all related structures Pupils: Equal, round and reactive pupils present Neck: Neck: Yes normal visual inspection, Yes no lymphadenopathy, Yes trachea midline and Yes supple Chest: Chest palpation & inspection: normal inspection of the chest and normal palpation of entire chest wall Resp: Effort & Inspection: normal respiratory effort and able to speak in complete sentences Auscultation: clear to auscultation bilaterally Cardio: Rate: regular rate Rhythm: regular rhythm Heart sounds: S1 normal heart sound present, S2 normal heart sound present and no murmurs GI: Inspection: Yes normal to inspection Palpation (GI): Soft to palpation, nontender and no guarding Auscultation: normal bowel sounds : General: Yes no CVA tenderness Back/Spine/Pelvis: Back: no CVA tenderness Skin: General skin exam: no rashes or lesions noted Neuro: Cranial nerves: Yes CN's II-XII intact bilaterally and Yes Equal, round and reactive pupils present Cognition (Neuro): normal cognition Motor exam (neuro): 5/5 motor strength present throughout Extrem: General: Yes normal to inspection Psych: Appearance: grossly normal Speech and movement: Normal speech and movement present Affect: Sad affect present and Anxious affect present Attitude: cooperative Thought process: Normal thought process present Thought content: Normal thought content present Course Course Course Narrative: 52 year who presents emergency department for evaluation of severe grief reaction after finding out that his son this morning. The patient was initially given Versed 4 mg IV with only minimal improvement of his symptoms. I ordered Haldol 5 mg IM with Benadryl 50 mg IM. EKG and laboratory evaluation wi ll be obtained. 0908: Laboratory evaluation: WBC elevated 10,900. Elevated BUN 23. Elevated ALT 54. Troponin detectable at 21.1 but not elevated. Twelve EKG was unremarkable. The patient's presentation is consistent with a severe grief reaction due to his son's . I did tell the patient that he should go home and rest. The patient was prescribed Ativan 1 mg pills 3 times a day and at night as needed for anxiety and insomnia. Medications Administered Discontinued Medications Generic Name Dose Route Start Last Admin Trade Name Baltaq PRN Reason Stop Dose Admin Diphenhydramine HCl 50 mg 06/01/22 03:35 06/01/22 03:38 Diphenhydramine Hcl 50 Mg/Ml Vial IM 06/01/22 03:36 50 mg ONCE ONE Administration Haloperidol Lactate 5 mg 06/01/22 03:35 06/01/22 03:39 Haloperidol Lactate 5 Mg/Ml Vial IM 06/01/22 03:36 5 mg STAT STA Administration Sodium Chloride 1,000 mls @ 999 mls/hr 06/01/22 03:41 06/01/22 07:14 Ns IV 06/01/22 04:41 Infused .Q1H1M STA Infusion Midazolam HCl 4 mg 06/01/22 02:49 06/01/22 03:00 Midazolam Hcl/Pf 2 Mg/2 Ml Vial IVPUSH 06/01/22 02:50 4 mg ONCE STA Administration Medical Decision Making Lab Data Result Diagrams: 06/01/22 03:55 06/01/22 03:55 Labs: Lab Results 06/01/22 06/01/22 06/01/22 Range/Units 03:55 03:55 03:55 WBC 10.9 H (4.8-10.8) X10*3/uL RBC 4.91 (4.60-5.80) X10*6/uL Hgb 15.7 (14.0-18.0) g/dl Hct 43.1 (42.0-52.0) % MCV 87.8 (80.0-98.0) fL MCH 32.0 (27.0-33.0) pg MCHC 36.4 H (31.0-36.0) g/dl RDW 11.8 (11.0-16.0) % Plt Count 245 (160-400) X10*3/uL MPV 9.7 (9.4-12.4) fL Immature Gran % (Auto) 0.4 (0.0-0.4) % Neut % (Auto) 75.1 H (45-73) % Lymph % (Auto) 16.3 L (20-40) % [place]ings[place] % (Auto) 7.0 (2-11) % Eos % (Auto) 0.9 (0-4) % Baso % (Auto) 0.3 (0-2) % Lymph # (Auto) 1.8 (1.2-4.9) X10*3/uL [place] # (Auto) 0.8 (0.1-1.2) X10*3/uL Eos # (Auto) 0.1 (0.0-0.4) X10*3/uL Baso # (Auto) 0.0 (0.0-0.2) X10*3/uL Abs Immat Gran (auto) 0.04 H (0.00-0.03) X10*3/uL Absolute Neuts (auto) 8.2 (2.0-8.3) x10*3/uL Absolute Nucleated RBC 0.000 (0.0-0.012) X10*3/uL Nucleated RBC % (auto) 0.0 (0.0-0.2) /100WBC Sodium 139 (135-145) mmol/L Potassium 4.2 (3.3-5.1) mmol/L Chloride 105 (96-108) mmol/L Carbon Dioxide 23 (22-29) mmol/L Anion Gap 15 (12-20) BUN 23 H (9-16) mg/dL Creatinine 1.13 (0.5-1.4) mg/dL Estim Creat Clear Calc 84.8 Estimated GFR > 60 Random Glucose 112 (60-115) mg/dL Calcium 9.5 (8.4-10.2) mg/dL Total Bilirubin 0.3 (0.0-1.0) mg/dL AST 26 (5-37) U/L ALT 54 H (0-40) U/L Alkaline Phosphatase 115 (39-117) U/L Troponin I High Sens 12.1 (<3.5-35.0) ng/L Total Protein 7.1 (6.5-8.0) g/dL Albumin 4.2 (3.5-5.0) g/dL Independent Interpretation I performed an independent interpretation of an: EKG (0328: My interpretation normal sinus rhythm with a rate of 73, normal MN interval, QRS duration QTC interval, no ST segment elevation, no ST segment depression, this is a normal EKG.) Discharge Plan Discharge Clinical Impression: Hyperventilation, Acute anxiety, Grief reaction Patient Disposition: Home, Self-Care Instructions: Grief and Loss (ED) Additional Instructions: Your blood work was unremarkable. Your EKG was normal. You received Versed 4 mg IV and Haldol 5 mg IM. I am prescribing a medication to try to help you stay calm and help you sleep over the next several days. This medication is called Ativan (lorazepam) 1 mg pills, you can take 1 mg pill 3 times a day as needed for anxiety and 1 mg pill at night for sleep. This medication will make you sleepy, do not drive while taking this medication. This medication can be addicting if your concerned about addiction do not get this medication filled or ask the pharmacist for less pills than prescribed Follow-up with your doctor in 2 days. Please return to the emergency department if your symptoms get worse or if you develop any symptoms that are concerning to you. Prescriptions: New lorazepam [Ativan] 1 mg tablet 1 mg PO TID PRN (Reason: anxiety) Qty: 12 0RF Rx Instructions: Patient may request partial fill No Action Kinseygusbladimir DVT-PE Treat 30D Start 5 mg (74 tabs) tablets,dose pack 5 mg PO PER PKG DIR Qty: 74 0RF diclofenac sodium [Arthritis Pain (diclofenac)] 1 % gel 4 g topical QID PRN (Reason: pain) Qty: 100 0RF oxycodone-acetaminophen [Percocet] 5-325 mg tablet 1 tab PO TID PRN (Reason: pain) Qty: 9 0RF prednisone 20 mg tablet 60 mg PO DAILY 5 Days Qty: 15 0RF cyclobenzaprine 10 mg tablet 10 mg PO TID PRN (Reason: pain) Qty: 21 0RF Rx Instructions: side effect is drowsiness. Do not take at work or while driving. lidocaine 4 % adhesive patch,medicated 1 patch topical DAILY PRN (Reason: pain) Qty: 10 0RF acetaminophen [Tylenol Extra Strength] 500 mg tablet 1,000 mg PO QID PRN (Reason: fever or pain) Qty: 14 0RF oxycodone 5 mg tablet 5 mg PO Q6H PRN (Reason: pain) Qty: 14 0RF levofloxacin 500 mg tablet 500 mg PO DAILY 7 Days Qty: 7 0RF metronidazole 500 mg tablet 500 mg PO Q12H 7 Days Qty: 14 0RF lidocaine [Lidoderm] 5 % adhesive patch,medicated 1 patch topical DAILY PRN (Reason: pain) Qty: 15 0RF Rx Instructions: leave on most painful area for up to 12 hrs
[2022-06-01] MEDS: diphenhydrAMINE HCL 50 MG/ML VIAL IM (03:38)
[2022-06-01] MEDS: Haloperidol Lactate 5 MG/ML VIAL IM (03:39)
[2022-06-01] MEDS: 0.9 % Sodium Chloride 1,000 ML 999 ML IV (03:43)
--- NOTE | 2022-06-01 03:46 | PC.NURSE ---
Pt aox3. Denies sob or cp. Reports abd tenderness. Medicated for anxiety due to loss of family member (son). Provider and family at the bedside. Will continue to monitor.
[2022-06-01 03:59] LABS: MANUAL DIFF FLAG NO
[2022-06-01 04:00] LABS: Basophils Percent Auto 0.3 % (0-2); Eosinophils Absolute Auto 0.1 X10*3/uL (0.0-0.4); Eosinophils Percent Auto 0.9 % (0-4); Hematocrit 43.1 % (42.0-52.0); Hemoglobin 15.7 g/dl (14.0-18.0); Imm Gran Abs Auto 0.04 X10*3/uL (0.00-0.03); Imm Gran Pct Auto 0.4 % (0.0-0.4); Lymphocytes Absolute Auto 1.8 X10*3/uL (1.2-4.9); Lymphocytes Percent Auto 16.3 % (20-40); Mean Corpuscular HGB Conc 36.4 g/dl (31.0-36.0); Mean Corpuscular Volume 87.8 fL (80.0-98.0); Mean Platelet Volume 9.7 fL (9.4-12.4); Monocytes Absolute Auto 0.8 X10*3/uL (0.1-1.2); Neutrophils Absolute Auto 8.2 x10*3/uL (2.0-8.3); Neutrophils Percent Auto 75.1 % (45-73); Platelet Count 245 X10*3/uL (160-400); Red Blood Count 4.91 X10*6/uL (4.60-5.80); Red Cell Distribution Width 11.8 % (11.0-16.0); White Blood Count 10.9 X10*3/uL (4.8-10.8)
--- OUTSIDE RECORDS SUMMARY | 2022-06-01 04:01 | XMS_ITS | Continuity of Care Document ---
:1970 Author Organization [facility] Address [address] [place] [id number]- Care Team Providers Name Role Phone Aurora SALDANA, Benito Soliz Primary Care Physician Encounter [facility] [place] Date(s): 06/28/21 - 07/28/21 [facility] [address] [place], [place] [address] Attending Physician: Lizette Gates Admitting Physician: Lizette Gates Referring Physician: AdmtrLizette Allergies, Adverse Reactions, Alerts No Known Allergies Medications Eliquis 5 mg oral tablet 1 tablet = 5 mg, By Mouth, 2 times a day, # 60 tablet, 5 Refills, Maintenance, 07/05/21 12:41:00 EST, Tablet, [id number], Partial fill upon patient request if the prescription is for a scheduleII opioid drug., 179.7, cm, 06/30/21 10:04:00 EST... Start Date: 07/05/21 Status: Ordered Problem List Condition Effective Dates Status Health Status Informant Obese class I(Confirmed) Active
--- OUTSIDE RECORDS SUMMARY | 2022-06-01 04:01 | XMS_ITS | Continuity of Care Document ---
:1970 Author Organization [facility] Address [address] [place] [address]- Care Team Providers Name Role Phone Benito Simon MD Primary Care Physician Encounter [facility] Date(s): 12/07/21 - 01/06/22 [facility] [address] [place] [address]- Attending Physician: Lizette Gates Admitting Physician: Lizette Gates Referring Physician: Lizette Gates Allergies, Adverse Reactions, Alerts No Known Allergies Medications cyclobenzaprine 10 mg oral tablet 10 mg, 1, tablet, By Mouth, 3 times a day, Refills 0, Maintenance, 07/29/21 9:09:00 EST, Partial fill upon patient request if the prescription is for a schedule II opioid drug. Start Date: 07/29/21 Status: OrderedEliquis 5 mg oral tablet 1 tablet = 5 mg, By Mouth, 2 times a day, # 60 tablet, 5 Refills, Maintenance, 07/05/21 12:41:00 EST, Tablet, [facility]/pharmacy #[id number], Partial fill upon patient request if the prescription is for a scheduleII opioid drug., 179.7, cm, 06/30/21 10:04:00 EST... Start Date: 07/05/21 Status: Orderedgabapentin 300 mg oral capsule 300 mg, 1, capsule, By Mouth, 3 times a day, Refills 0, Maintenance, 07/29/21 9:09:00 EST, Partial fill upon patient request if the prescription is for a schedule II opioid drug. Start Date: 07/29/21 Status: OrderedhydrOXYzine hydrochloride 50 mg oral tablet 1 tablet = 50 mg, By Mouth, 3 times a day, 0 Refills, Maintenance, 07/29/21 9:12:00 EST, Partial fill upon patient request if the prescription is for a schedule II opioid drug. Start Date: 07/29/21 Status: OrderedMelatonin = 1 mg, Daily at bedtime, 0 Refills, Maintenance, 07/29/21 9:10:00 EST, Partial fill upon patient request if the prescription is for a schedule II opioid drug. Start Date: 07/29/21 Status: OrderedtraMADol 50 mg oral tablet 1 tablet = 50 mg, By Mouth, Every 12 hours, 0 Refills, Maintenance, 07/29/21 9:08:00 EST, Partial fill upon patient request if the prescription is for a schedule II opioid drug. Start Date: 07/29/21 Status: OrderedVitamin D3 1000 intl units oral capsule 1 capsule = 25 mcg, By Mouth, Daily, 0 Refills, Maintenance, 07/29/21 9:13:00 EST, Partial fill uponpatient request if the prescription is for a schedule II opioid drug. Start Date: 07/29/21 Status: Ordered Problem List Condition Effective Dates Status Health Status Informant Obese class I(Confirmed) Active
--- OUTSIDE RECORDS SUMMARY | 2022-06-01 04:01 | XMS_ITS | Continuity of Care Document ---
:1970 Author Organization [facility] Address [address] [place] [address]- Care Team Providers Name Role Phone Benito Simon MD Primary Care Physician [place] [facility] [place] 08[place]/21 [facility] [place] [address] [place] [address]- Discharge Disposition: A-D/C Home Attending Physician: Jurgen Ford MD Admitting Physician: Jurgen Ford MD Referring Physician: Benito Simon MD Allergies, Adverse Reactions, Alerts No Known Allergies [...] 5 Refills, Maintenance, 07/05/21 12:41:00 EST, Tablet, [facility]/pharmacy #[id number], Partial fill upon patient request if the [...] Health Status Informant Obese class I(Confirmed) Active Vital Signs Most recent to oldest [Reference Range]: 1 Height 179.7 cm (06/30/21 10:04 AM) Weight 101.2 kg (06/30/21 10:04 AM) Oxygen Saturation [94-100 %] 99 % (06/30/21 10:04 AM) Pulse Rate [55-90 bpm] 74 bpm (06/30/21 10:04 AM) Body Mass Index [18.5-24.99] 31.34 *>HHI* (06/30/21 10:04 AM) Blood Pressure [90-138/55-84 mm Hg] 133/88 mm Hg (06/30/21 10:04 AM) Temperature [96.8-100.4 DegF] 97.4 DegF (06/30/21 10:04 AM) Mode of Delivery (Oxygen) Room air (06/30/21 10:04 AM) Blood pressure sites Arm, right (06/30/21 10:04 AM) Temperature Route Temporal (06/30/21 10:04 AM) Dry Weight 101.2 kg (06/30/21 10:04 AM) Weight Obtained Via Standing scale (06/30/21 10:04 AM) Dry Weight Obtained Via Standing scale (06/30/21 10:04 AM)
--- OUTSIDE RECORDS SUMMARY | 2022-06-01 04:01 | XMS_ITS | Continuity of Care Document ---
:1970 Author Organization [facility] Address [address] [place] [phone]- Care Team Providers Name Role Phone Benito Simon MD Primary Care Physician [place] [facility] [place] [facility] [place] 08[place]12/21 - 09/11/21 [facility] [address] [place] [address]- Attending Physician: Lizette Gates Admitting Physician: Lizette [...] 5 Refills, Maintenance, 07/05/21 12:41:00 EST, Tablet, [facility]/pharmacy #[id number], Partial fill upon patient request if the [...]
--- OUTSIDE RECORDS SUMMARY | 2022-06-01 04:01 | XMS_ITS | Continuity of Care Document ---
:1970 Author Organization [facility] Address Unavailable , Care Team Providers Name Role Phone Aurora SALDANA, Benito Soliz Primary Care Physician [place] [facility] [place] 05[place]21 [facility] Attending Physician: Lizette Gates Admitting Physician: Lizette Gates Referring Physician: trLizette Allergies, Adverse Reactions, Alerts Substance Reaction Severity Status NKA Active
--- OUTSIDE RECORDS SUMMARY | 2022-06-01 04:01 | XMS_ITS | Continuity of Care Document ---
:1970 Author Organization [facility] Address [address] [place] [address]- Care Team Providers Name Role Phone Benito Simon MD Primary Care [id number] Date[facility] - 08/30/[address] [address]- Encounter Diagnosis Dizziness (Final) - 08/30/21 Discharge Disposition: A-D/C Home Attending Physician: Jostin Sweet MD Admitting Physician: Jostin Sweet MD Referring Physician: Not on Staff, Referring MD Allergies, Adverse Reactions, Alerts No Known [...] 5 Refills, Maintenance, 07/05/21 12:41:00 EST, Tablet, [facility]/pharmacy #[id number], Partial fill upon patient request if the [...] II opioid drug. Start Date: 07/29/21 Status: OrderedMorPHINE CR Tablet 15 mg, CR Tablet, By Mouth, Once, STAT, 08/30/21 12:08:00 EDT, Stop date 08/30/21 12:08:00 EDT Notes: Do Not Crush. Start Date: 08/30/21 Stop Date: 08/30/21 Status: CompletedtraMADol 50 mg oral tablet 1 tablet = [...] Health Status Informant Obese class I(Confirmed) Active Results Radiology Reports Exam Date Time Procedure Performing Provider Status 08/30/21 1:00 PM Chest 2 Views Frontal and Lat Eliud Frazier (Verified) Notes:(Chest 2 Views Frontal and Lat) Reason For Exam: Shortness of Breath, Fever;Other:RESULT: Chest 2 Views Frontal and Lat Chest 2 Views Frontal and Lat Hx of Present Illness: back pain; Reason: Shortness of Breath, Fever; Clinical Question(s): Pneumonia COMPARISON: None. FINDINGS: LINES AND TUBES: Portions of the spinal stimulator leads identified appear intact. LUNGS AND PLEURA: Clear lungs. Normal pulmonary vascularity. No pleural effusion. No pneumothorax. HEART, MEDIASTINUM AND AYAH: Heart is normal in size. Normal upper mediastinal and hilar contour. BONES AND SOFT TISSUES: No acute abnormality. IMPRESSION: No acute abnormality. WSN: [id number] Ordering Physician: Seven Anderson Dictated By: Aubrey Douglas MD Dictated Date/Time: 08/30/21 1:25 pm Reviewed By: Aubrey Douglas MD Signed By: Aubrey Douglas MD Signed Date/Time: 08/30/21 1:25 pm Transcribed By: BALA Transcribed Date/Time: 08/30/21 1:24 pm Vital Signs Most recent to oldest 1 2 3 [Reference Range]: Oxygen Saturation [94-100 %] 98 % 96 % 99 % (08/30/21 1:40 PM) (08/30/21 1:30 PM) (08/30/21 10: 42 AM) Pulse Rate [55-90 bpm] 58 bpm 60 bpm 74 bpm (08/30/21 1:40 PM) (08/30/21 1:30 PM) (08/30/21 10: 42 AM) Blood Pressure [90-138/55-84 173/110 mm Hg mm Hg] *H* (08/30/21 10:42 AM) Respiratory Rate [16-30 21 br/min 20 br/min 14 br/mi n br/min] (08/30/21 1:40 PM) (08/30/21 1:30 PM) *L* (08/30/21 12:43 P M) Temperature [96.8-100.4 DegF] 97.9 DegF (08/30/21 10:42 AM) Mode of Delivery (Oxygen) Room air Room air Room a ir (08/30/21 1:40 PM) (08/30/21 1:30 PM) (08/30/21 10: 42 AM) Blood pressure sites Arm, right (08/30/21 10:42 AM) Temperature Route Oral (08/30/21 10:42 AM)
--- OUTSIDE RECORDS SUMMARY | 2022-06-01 04:01 | XMS_ITS | Continuity of Care Document ---
:1970 Author Organization [facility] Address [address] [place] [address]- Care Team Providers Name Role Phone Aurora SALDANA, Benito Soliz Primary [id number] - [facility]11/[facility] [address] [place] [address]- Attending Physician: Alcon Craft MD Admitting Physician: Alcon Craft MD Referring Physician: Jurgen Ford MD Allergies, Adverse Reactions, Alerts No Known [...] 5 Refills, Maintenance, 07/05/21 12:41:00 EST, Tablet, [facility]/pharmacy #[id number], Partial fill upon patient request if the [...]
--- OUTSIDE RECORDS SUMMARY | 2022-06-01 04:01 | XMS_ITS | Continuity of Care Document ---
:1970 Author Organization [facility] Address [address] [place] [address]- Care Team Providers Name Role Phone Benito Simon MD Primary Care Physician Encounter [facility] [place] Date(s): 08/12/21 - 08/12/[address] [address] Discharge Disposition: A-D/C Home Attending Physician: Rupesh Alexandre MD Admitting Physician: Rupesh Alexandre MD Referring Physician: Rupesh Alexandre MD Allergies, Adverse Reactions, Alerts No Known [...] 5 Refills, Maintenance, 07/05/21 12:41:00 EST, Tablet, [facility]/pharmacy #[id number], Partial fill upon patient request if the [...] II opioid drug. Start Date: 07/29/21 Status: OrderedoxyCODONE 5 mg oral tablet 5 mg, 1, tablet, By Mouth, Every 6 hours, PRN, # 28 tablet, Refills 0, Tot. Refills 0, Acute 08/21/21 13:53:00 EST, Pain , Moderate, 08/12/21 13:53:00 EST, Route to Pharmacy Electronically, [facility]/pharmacy #[id number], Partial fill upon patient request if the... 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 service supervisor Vital Signs Most recent to oldest 1 2 3 [Reference Range]: Height 182.88 cm 182.88 cm (08/12/21 11:20 AM) (07/29/21 9:32 AM) Weight 103.64 kg 103.64 kg (08/12/21 11:20 AM) (07/29/21 9:32 AM) Oxygen Saturation [94-100 %] 100 % 100 % 100 % (08/12/21 5:30 PM) (08/12/21 5:15 PM) (08/12/21 5:0 0 PM) Pulse Rate [55-90 bpm] 76 bpm (08/12/21 11:20 AM) Body Mass Index [18.5-24.99] 30.99 30.99 *>HHI* *>HHI* (08/12/21 11:20 AM) (07/29/21 9:32 AM) Blood Pressure [90-138/55-84 149/114 mm Hg 159/100 mm Hg 183 /102 mm Hg mm Hg] *H* *H* *H* (08/12/21 4:45 PM) (08/12/21 4:15 PM) (08/12/21 4:0 0 PM) Respiratory Rate [16-30 18 br/min 18 br/min 16 br/mi n br/min] (08/12/21 5:30 PM) (08/12/21 5:15 PM) (08/12/21 5:0 0 PM) Temperature [96.8-100.4 DegF] 97.9 DegF 97.4 DegF 97 .9 DegF (08/12/21 4:45 PM) (08/12/21 3:00 PM) (08/12/21 11: 20 AM) Liters per Minute 2 L/min 2 L/min 2 L/min (08/12/21 3:57 PM) (08/12/21 3:45 PM) (08/12/21 3:3 0 PM) Mode of Delivery (Oxygen) Room air Room air Room a ir (08/12/21 5:30 PM) (08/12/21 5:15 PM) (08/12/21 5:0 0 PM) Blood pressure sites Arm, left Arm, left Arm, right (08/12/21 4:15 PM) (08/12/21 3:45 PM) (08/12/21 3:1 5 PM) Temperature Route Temporal Temporal Temporal (08/12/21 4:45 PM) (08/12/21 3:00 PM) (08/12/21 11: 20 AM) Dry Weight 102.1 kg 103.64 kg (08/12/21 11:20 AM) (07/29/21 9:32 AM) Dry Weight Obtained Via Standing scale (08/12/21 11:20 AM)
--- OUTSIDE RECORDS SUMMARY | 2022-06-01 04:01 | XMS_ITS | Continuity of Care Document ---
:1970 Author Organization [facility] Address Unavailable , Care Team Providers Name Role Phone Aurora SALDANA, Benito Soliz Primary Care Physician Encounter [place] Date(s): 04/01/21 - 05/05/21 [facility] Attending Physician: Robert RIZZO, Kasie Bird Admitting Physician: Kasie Jones NP Referring Physician: Jurgen Ford MD Allergies, Adverse Reactions, Alerts Substance Reaction Severity Status NKA Active
--- OUTSIDE RECORDS SUMMARY | 2022-06-01 04:01 | XMS_ITS | Continuity of Care Document ---
:1970 Author Organization [facility] Address [address] [place] [id number]- Care Team Providers Name Role Phone Aurora SALDANA, Benito Soliz Primary Care Physician Encounter [facility] [place] Date(s): 01/13/21 - 05/29/21 [facility] [address] [address]- Discharge Disposition: A-D/C Home Attending Physician: Jurgen Ford MD Admitting Physician: Jurgen Ford MD Referring Physician: Adrianna Kemp Allergies, Adverse Reactions, Alerts Substance Reaction Severity Status NKA Active Medications No Known Medications Vital Signs Most recent to oldest [Reference Range]: 1 Height 179.7 cm (03/29/21 1:41 PM) Weight 103.5 kg (03/29/21 1:41 PM) Pulse Rate [55-90 bpm] 78 bpm (03/29/21 1:41 PM) Body Mass Index [18.5-24.99] 32.05 *>HHI* (03/29/21 1:41 PM) Blood Pressure [90-138/55-84 mm Hg] 132/82 mm Hg (03/29/21 1:41 PM) Temperature [96.8-100.4 DegF] 98.3 DegF (03/29/21 1:41 PM) Blood pressure sites Arm, right (03/29/21 1:41 PM) Temperature Route Temporal (03/29/21 1:41 PM) Dry Weight 103.5 kg (03/29/21 1:41 PM) Weight Obtained Via Standing scale (03/29/21 1:41 PM) Dry Weight Obtained Via Standing scale (03/29/21 1:41 PM)
[2022-06-01 04:21] LABS: Troponin-I High Sensitivity 12.1 ng/L (<3.5-35.0)
[2022-06-01 04:22] LABS: Alanine Aminotransferase 54 U/L (0-40); Albumin Level 4.2 g/dL (3.5-5.0); Alkaline Phosphatase 115 U/L (39-117); Anion Gap 15 (12-20); Aspartate Amino Transferase 26 U/L (5-37); Bilirubin Total 0.3 mg/dL (0.0-1.0); Blood Urea Nitrogen 23 mg/dL (9-16); Calcium 9.5 mg/dL (8.4-10.2); Carbon Dioxide 23 mmol/L (22-29); Chloride 105 mmol/L (96-108); Creatinine Clr Calc Pharmacy 84.8; Estimated Glomerular Filt Rate > 60; Glucose Random 112 mg/dL (60-115); Potassium 4.2 mmol/L (3.3-5.1); Sodium 139 mmol/L (135-145); Total Protein 7.1 g/dL (6.5-8.0)
--- NOTE | 2022-06-01 05:34 | PC.NURSE ---
Step son Fadi, at the bedside reports pt in need of health care proxy. Pt currently sleeping. HR 60 RR 12. No apparent distress noted. Will continue to monitor. Will address health care proxy with pt once pt is awake.
--- NOTE | 2022-06-01 09:34 | ECG_ITS ---
Test Reason : CP Blood Pressure : / mmHG Vent. Rate : 081 BPM Atrial Rate : 081 BPM P-R Int : 158 ms QRS Dur : 086 ms QT Int : 360 ms P-R-T Axes : 024 049 037 degrees QTc Int : 418 ms Normal sinus rhythm Normal ECG When compared with ECG of 04-MAY-2021 08:20, No significant change was found Referred By: Terry Munroe Electronically Signed By:CHRISTIANO PAREDES
--- NOTE | 2022-06-01 09:38 | ECG_ITS ---
Test Reason : ANXIETY Blood Pressure : / mmHG Vent. Rate : 077 BPM Atrial Rate : 077 BPM P-R Int : 168 ms QRS Dur : 084 ms QT Int : 370 ms P-R-T Axes : 049 059 045 degrees QTc Int : 418 ms Normal sinus rhythm Normal ECG No significant changes when compared with the previous EKG of 01 jun 2022 Referred By: Terry Munroe Electronically Signed By:CHRISTIANO PAREDES
== END 2022-06-01 09:52 | disposition home or self-care (01) ==
PROVIDERS: Emergency Provider Emergency Medicine Emergency Medical Services
DX: R06.4 Hyperventilation (principal); F43.22 Adjustment disorder with anxiety; Z72.89 Other problems related to lifestyle; Z63.4 Disappearance and death of family member; I10 Essential (primary) hypertension; F17.200 Nicotine dependence, unspecified, uncomplicated; Z86.718 Personal history of other venous thrombosis and embolism; Z79.01 Long term (current) use of 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; Z79.899 Other long term (current) drug therapy
CPT/HCPCS: 36415; 80053; 84484; 85025; 93005; 96361; 96372; 96374; 99285; J1200; J2250

== ENCOUNTER 2023-03-09 08:36 | Outpatient (AMB) | payer OTHER, SELFPAY ==
[2023-03-09 09:25] VITALS: BP 126/74; PULSE 80; RESP 12; O2SAT 97; BMI 31.1
--- NOTE | 2023-03-09 09:25 | A.OFFPC_ITS ---
Vital Signs 03/09/23 09:25 Height 6 ft Weight 229 lb 2 oz BMI 31.1 BP 126/74 Blood Pressure Location Rt brachial Position Sitting Respiration 12 Pulse 80 Pulse Source Pulse Oximeter Pulse Oximetry (%) 97 Oxygen Delivery Method Room Air Intake Visit Reasons: New patient- requesting physical Intake Note: Patient has alot of pain in right side. When patient moves there is a popping sound that is followed by a shooting pain down his side. It is difficult for him to sit and stay still. Software Test Developer Required: No Accompanied by: Self / Same As Patient Allergies No Known Allergies [No Known Allergies*] Allergy (Verified 03/09/23 09:52) Medication List - Last Reconciled 03/09/23 by RETA Paige apixaban (Eliquis) 5 mg PO BID atorvastatin 20 mg PO DAILY cholecalciferol (vitamin D3) 25 mcg PO DAILY hydrochlorothiazide 50 mg PO DAILY mirtazapine 15 mg PO BEDTIME omeprazole 20 mg PO DAILY trazodone 200 mg PO BEDTIME PRN Tobacco use date assessed: 03/09/23 Dental Screening Dental Screen Date: 03/09/23 Did you have a dental visit in the last 12 months?: Yes Did you have a dental problem in the last 6 months where you did not have access to dental care?: No Was dental information given to patient?: Patient has dentist HPI HPI Comments History of Present Illness Details 53-year-old male new patient presents to [facility]. Past medical history significant for hypertension, hyperlipidemia, vitamin-D deficiency, lumbar radiculopathy patient is status post back surgery in 2007, DVT on anticoagulation, anxiety and depression. Patient reports has stimulator in back. DVT: Patient on Eliquis 5 mg b.i.d. currently followed by molded goods inspector trimmer Dr. Ford in [place] Anxiety and depression: Patient currently followed by psychiatrist and counselor currently stable on trazodone and mirtazapine Previous Pcp: Katarina Causey: in [facility]. Lumbar back pain years x2 surgery, patient reports a patient of Dr. Alexandre. Patient continues to report lumbar radiculopathy pain wraps around right hip extends down right thigh to top of right. Patient does report that his stimulator does somewhat, patient states that he is not currently followed by pain management discuss referral for this. Patient agreeable. Patient denies any need for refills on blood pressure cholesterol med and occasion at this time. [facility] Medical History (Updated 03/10/23 @ 06:00 by RETA Paige) Arthritis DVT (deep venous thrombosis) Surgical History (Updated 03/09/23 @ 09:51 by RETA Paige) History of surgery on arm Previous back surgery Social History (Updated 03/09/23 @ 09:52 by RETA Paige) Housing: House Alcohol intake: never Patient Tobacco Use Status: Current everyday Tobacco user Tobacco use type: Cigarette Cigarette Packs Per Day: 1 e-Cigarette/Vaping Use: Never Used service: No Current occupational status: unemployed Cognitive needs: No Hearing needs: No Vision needs: No Review of Systems Const Denies chills, Denies fatigue, Denies fever(s) and Denies poor appetite Eyes Denies no additional complaints ENT Reports Normal hearing present Card Denies chest pain, Denies syncope, Denies rapid heart rate and Denies dyspnea Resp Denies cough and Denies dyspnea GI Denies change in stool character, Denies constipation, Denies diarrhea, Denies nausea and Denies vomiting Denies dysuria, Denies urinary frequency and Denies urinary urgency Musc Reports back pain (lumbar back pain) and Reports radiating pain into limb Neuro Reports Normal hearing present, Denies confusion and Denies syncope Psych Denies confusion Endo Denies fatigue Physical exam (Primary Care) Vital Signs: Last Vital Signs Pulse 80 03/09/23 09:25 Resp 12 03/09/23 09:25 BP 126/74 03/09/23 09:25 Pulse Ox 97 03/09/23 09:25 Oxygen Delivery Method Room Air 03/09/23 09:25 BMI result Body Mass Index 31.1 Tobacco/Smoking Status: Tobacco use Status Tobacco use date assessed 03/09/23 03/09/23 09:41 Patient Tobacco Use Status Current everyday Tobacco 03/09/23 09:52 Tobacco use type Cigarette 03/09/23 09:52 e-Cigarette/Vaping Use Never Used 03/09/23 09:52 Const General: No confusion Orientation/consciousness: No confusion HENMT Head: Yes normocephalic and Yes atraumatic Eyes Conjunctivae: conjunctivae normal Chest Chest palpation & inspection: normal inspection of the chest Resp Effort & Inspection: normal respiratory effort Auscultation: clear to auscultation bilaterally, no crackles, no rhonchi and no wheezes Cardio Rate: regular rate Rhythm: regular rhythm Heart sounds: S1 normal heart sound present and S2 normal heart sound present GI Inspection: Yes normal to inspection Neuro General: No confusion Cranial nerves: Yes Normal hearing present Extrem General: No edema Assessment and Plan Assessment & Plan (1) Lumbar radicular pain: Code(s): M54.16 - Radiculopathy, lumbar region Plan: Referral entered to pain management. (2) Hypertension: Code(s): I10 - Essential (primary) hypertension Plan: Continue on hydrochlorothiazide 50 mg daily. Blood pressure optimal in office today. Follow low-salt diet and exercise. (3) Hyperlipidemia: Code(s): E78.5 - Hyperlipidemia, unspecified Plan: Continue on atorvastatin 20 mg daily. Fasting lipid panel ordered. (4) DVT (deep venous thrombosis): Comment: Left leg; 2 years ago Code(s): I82.409 - Acute embolism and thrombosis of unspecified deep veins of unspecified lower extremity Plan: Continue on Eliquis 5 mg b.i.d.. Continue to follow with Hematology. Plan Follow-up in 3 months for complete physical exam. Orders: Orders Comprehensive [place]. Panel Fast 03/09/23 E78.5 - Hyperlipidemia, unspecified Microalbumin, Random (w Creat) 03/09/23 I10 - Essential (primary) hypertension Complete Blood Count Auto Diff 03/09/23 Z13.0 - Encounter for screening for diseases of the blood and blood-forming organs and certain disorders involving the immune mechanism Lipid Panel 03/09/23 Z13.220 - Encounter for screening for lipoid disorders TSH reflex Free T4 03/09/23 Z13.29 - Encounter for screening for other suspected endocrine disorder Referrals Pain Management Referral M54.16 - Radiculopathy, lumbar region Coding Level of Care Code New Pt Level 4 (31582) Diagnoses Lumbar radicular pain M54.16 Hypertension I10 Hyperlipidemia E78.5 DVT (deep venous thrombosis) I82.409
== END 2023-03-09 10:08 | disposition home or self-care (01) ==
PROVIDERS: PCP Nurse Practitioner Family; Visit Provider Nurse Practitioner Family
DX: M54.16 Radiculopathy, lumbar region (principal); I10 Essential (primary) hypertension; E78.5 Hyperlipidemia, unspecified; I82.409 Acute embolism and thrombosis of unspecified deep veins of unspecified lower extremity
CPT/HCPCS: 99204

== ENCOUNTER 2023-03-09 10:20 | Outpatient (REF) | payer OTHER, SELFPAY ==
[2023-03-09 10:33] LABS: MANUAL DIFF FLAG NO
[2023-03-09 10:58] LABS: Basophils Percent Auto 0.6 % (0-2); Eosinophils Absolute Auto 0.2 X10*3/uL (0.0-0.4); Eosinophils Percent Auto 2.2 % (0-4); Hematocrit 45.6 % (42.0-52.0); Hemoglobin 16.2 g/dl (14.0-18.0); Imm Gran Abs Auto 0.03 X10*3/uL (0.00-0.03); Imm Gran Pct Auto 0.4 % (0.0-0.4); Lymphocytes Absolute Auto 2.4 X10*3/uL (1.2-4.9); Lymphocytes Percent Auto 34.9 % (20-40); Mean Corpuscular HGB Conc 35.5 g/dl (31.0-36.0); Mean Corpuscular Hemoglobin 32.3 pg (27.0-33.0); Mean Corpuscular Volume 90.8 fL (80.0-98.0); Mean Platelet Volume 10.6 fL (9.4-12.4); Monocytes Absolute Auto 0.7 X10*3/uL (0.1-1.2); Monocytes Percent Auto 9.6 % (2-11); Neutrophils Absolute Auto 3.5 x10*3/uL (2.0-8.3); Neutrophils Percent Auto 52.3 % (45-73); Platelet Count 241 X10*3/uL (160-400); Red Blood Count 5.02 X10*6/uL (4.60-5.80); Red Cell Distribution Width 12.2 % (11.0-16.0); White Blood Count 6.8 X10*3/uL (4.8-10.8)
[2023-03-09 11:45] LABS: Alanine Aminotransferase 61 U/L (0-40); Albumin Level 4.3 g/dL (3.5-5.0); Alkaline Phosphatase 138 U/L (39-117); Anion Gap 15 (12-20); Aspartate Amino Transferase 28 U/L (5-37); Bilirubin Total 0.5 mg/dL (0.0-1.0); Blood Urea Nitrogen 17 mg/dL (9-16); Calcium 10.3 mg/dL (8.4-10.2); Carbon Dioxide 28 mmol/L (22-29); Chloride 101 mmol/L (96-108); Cholesterol 205 mg/dL (<200); Estimated Glomerular Filt Rate > 60; Glucose Fasting 200 mg/dL (60-99); HDL Cholesterol 30 mg/dL (>40); Potassium 4.7 mmol/L (3.3-5.1); Sodium 139 mmol/L (135-145); Triglycerides 483 mg/dL (<150)
[2023-03-09 12:01] LABS: TSH reflex Free T4 1.19 uIU/mL (0.32-4.0)
[2023-03-09 12:42] LABS: Creatinine Urine 232.55 mg/dL; Microalbum/Creatinine Ratio Ur 20.6 ug/mg cr (<30)
== END 2023-03-09 10:21 | disposition home or self-care (01) ==
LOC: HO.LAB 10:20
PROVIDERS: PCP Nurse Practitioner Family; Visit Provider Nurse Practitioner Family
DX: E78.5 Hyperlipidemia, unspecified (principal); I10 Essential (primary) hypertension; Z13.0 Encounter for screening for diseases of the blood and blood-forming organs and certain disorders involving the immune mechanism; Z13.220 Encounter for screening for lipoid disorders; Z13.29 Encounter for screening for other suspected endocrine disorder
CPT/HCPCS: 36415; 80053; 80061; 82043; 82570; 84443; 85025

== ENCOUNTER 2023-03-14 08:40 | Outpatient (AMB) | payer OTHER, SELFPAY ==
--- NOTE | 2023-03-14 08:49 | A.OFFVIS_ITS ---
Intake Vital Signs 03/14/23 08:58 Height 6 ft Weight 228 lb BMI 30.9 BP 148/88 H Blood Pressure Location Lt brachial Position Sitting Respiration 18 Pulse 73 Pulse Source Pulse Oximeter Pulse Oximetry (%) 99 Oxygen Delivery Method Room Air Intake Visit Reasons: LUMBAR RADICULOPATHY/ CONFIRMED Allergies No Known Allergies [No Known Allergies*] Allergy (Verified 03/14/23 08:54) HPI HPI Comments History of Present Illness Details Bismark is a very pleasant 53 year old male who presents to the office today for evaluation and management of his right hip pain. He has been suffering with this pain for approximately 2 months. Pain today is rated as 8/10, worse with sitting and movement. He reports some ?popping ?of the right hip with pain radiating into his right thigh. Patient was taking Tylenol for the pain, but he was recently evaluated by his primary care doctor and told elevated liver enzymes so hold Tylenol. He takes Eliquis, therefore he does not take any nonsteroidal anti-inflammatory medications. Patient he has not tried physical therapy, chiropractor, acupuncture, massage or injections for this pain. Patient has not had any imaging of his right hip. In terms of muscle damage condition is described as shooting, stabbing, aching. Pain is constant, worse during the day and in the middle the night. Had pain is negatively impacting his general activity, sleeping and walking. Past medical history significant for DVT with current use of Eliquis, high cholesterol, hypertension, acid reflux, post-laminectomy syndrome with spinal cord stimulator. [facility] Medical History (Updated 03/14/23 @ 09:12 by Jordyn Piña APRN, PICK UP WORKER) Arthritis DVT (deep venous thrombosis) Surgical History (Updated 03/09/23 @ 09:51 by RETA Paige) History of surgery on arm Previous back surgery Social History (Updated 03/09/23 @ 09:52 by RETA Paige) Housing: House Alcohol intake: never Patient Tobacco Use Status: Current everyday Tobacco user Tobacco use type: Cigarette Cigarette Packs Per Day: 1 e-Cigarette/Vaping Use: Never Used service: No Current occupational status: unemployed Cognitive needs: No Hearing needs: No Vision needs: No Review of Systems Const All systems reviewed & are unremarkable except as noted in HPI and below Physical Exam Vital Signs: Last Vital Signs Pulse 73 03/14/23 08:58 Resp 18 03/14/23 08:58 BP 148/88 H 03/14/23 08:58 Pulse Ox 99 03/14/23 08:58 Oxygen Delivery Method Room Air 03/14/23 08:58 BMI result Body Mass Index 30.9 General: awake, alert, oriented. Answers questions appropriately. Fully engaged in examination. Skin: warm, dry, intact HEENT: Normocephalic. Hearing intact. Cardiac: External chest normal in appearance. Respiratory: No cough, audible wheezing or stridor. Abdomen: without gross distension. MS: Able to transition from sit to stand unassisted. Ambulates with bilaterally normal heel strike and toe off Decreased ROM right hip. pain with I/E rotation. non-tender to palpation over PSIS, non-tender to palpation over Trochanteric Bursa Neurological: Oriented to person, place, time and situation. Thought process intact. Psychiatric: Appropriate mood and affect. Good judgment and insight. Assessment & Plan Assessment & Plan (1) Hip pain, right: Code(s): M25.551 - Pain in right hip Plan Bismark is a very pleasant 53 year old male who presents to the office today for evaluation and management of right hip pain. Xray ordered for evaluation Baclofen 5mg po BID as needed for pain PT eval and treat ordered. Discussed options for treatment including diagnostic interventional testing, steroid injections, peripheral nerve stimulation with Sprint, RFA if he does not get relief with physical therapy and low-dose muscle relaxer. Patient had recent elevated blood sugar on lab work. PCP ordered repeat with A1c. Advised patient that we cannot offer intra-articular steroid injections until this is completed and pending results. If his A1c is elevated will need to get blood sugars under control before we can do steroid injections. Advised patient of risks associated with steroid use with uncontrolled blood sugars. Patient verbalizes understanding. All questions and concerns have been answered and patient agrees with the plan. Follow up after PT and sooner if needed. Orders: Orders XR hip RT min 2V Today M25.551 - Pain in right hip PT Evaluation and Treatment Today M25.551 - Pain in right hip Medications: New baclofen 5 mg PO BID 30 tabs 0RF Coding Level of Care Code New Pt Level 4 (06113) Diagnoses Hip pain, right M25.551
[2023-03-14 08:58] VITALS: BP 148/88; PULSE 73; RESP 18; O2SAT 99; BMI 30.9
== END 2023-03-14 09:29 | disposition home or self-care (01) ==
PROVIDERS: PCP Nurse Practitioner Family; Visit Provider Registered Nurse Emergency
DX: M25.551 Pain in right hip (principal)
CPT/HCPCS: 99204

== ENCOUNTER → 2023-03-14 08:40 | Outpatient (BNVA) | payer OTHER, SELFPAY | PROVIDERS: PCP Nurse Practitioner Family; Visit Provider Registered Nurse Emergency ==

== ENCOUNTER 2023-03-23 08:14 | Outpatient (REF) | payer OTHER, SELFPAY ==
[2023-03-27 00:03] LABS: Calcium, Ionized 5.1 mg/dL (4.7-5.5)
== END 2023-03-23 08:15 | disposition home or self-care (01) ==
LOC: HO.LAB 08:14
PROVIDERS: Nurse Practitioner Family; Visit Provider Registered Nurse Emergency
DX: M25.551 Pain in right hip (principal); R74.8 Abnormal levels of other serum enzymes; E83.52 Hypercalcemia; R73.01 Impaired fasting glucose
CPT/HCPCS: 36415; 73502; 80053; 82330; 83036; 83970; 86704; 86706; 86709; 86803; 87340

== ENCOUNTER 2023-04-25 08:09 | Outpatient (REF) | payer OTHER, SELFPAY ==
--- NOTE | ~2023-04-25 | US_ITS ---
EXAMINATION: US ABDOMEN COMPLETE CLINICAL INFORMATION: Abnormal levels of other serum enzymes. COMPARISON: CT abdomen and pelvis 05/04/2021. Ultrasound abdomen 05/18/2010. TECHNIQUE: Real-time imaging of the abdominal viscera. FINDINGS: PANCREAS: Pancreas is obscured by bowel gas. ABDOMINAL AORTA: Limited evaluation of the proximal aorta. The mid, and distal segments are normal in caliber. INFERIOR VENA CAVA: Visualized portions are normal. LIVER: Diffuse increased echogenicity to the liver parenchyma with focal fatty sparing at the gallbladder fossa. No focal hepatic lesion. There is no intrahepatic biliary duct dilatation seen. GALLBLADDER: Normal. The gallbladder is physiologically distended without evidence of stones, sludge, polyps, wall thickening or pericholecystic fluid. No tenderness elicited during study. COMMON BILE DUCT: Normal in caliber measuring 0.2 cm in diameter. RIGHT KIDNEY: Normal. No hydronephrosis. No renal calculi or focal parenchymal lesions. The kidney measures 9.5 cm in maximum dimension. LEFT KIDNEY: Normal. No hydronephrosis. No renal calculi or focal parenchymal lesions. The kidney measures 11.0 cm in maximum dimension. SPLEEN: Normal. The spleen measures 9.8 cm in maximum dimension. FREE FLUID: None. US/US abdomen complete IMPRESSION: Hepatic steatosis. Inadequate evaluation of the pancreas. Should this be a region of clinical concern, consider other imaging modality such as CT.
== END 2023-04-25 08:10 | disposition home or self-care (01) ==
LOC: HO.US 08:09
PROVIDERS: Visit Provider Nurse Practitioner Family
DX: R74.8 Abnormal levels of other serum enzymes (principal)
CPT/HCPCS: 76700

== ENCOUNTER 2023-05-29 09:12 | Outpatient (AMB) | payer OTHER, SELFPAY ==
[2023-05-29 09:14] VITALS: BP 150/100; PULSE 75; O2SAT 98; BMI 29.4
--- NOTE | 2023-05-29 09:14 | A.OFFPC_ITS ---
Vital Signs 05/29/23 09:14 Height 6 ft Weight 217 lb BMI 29.4 BP 150/100 H Blood Pressure Location Rt brachial Position Sitting Pulse 75 Pulse Source Pulse Oximeter Pulse Oximetry (%) 98 Oxygen Delivery Method Room Air Intake Visit Reasons: Pe Intake Note: pt is here for physical Applique Cutter Required: No Accompanied by: Significant Other Allergies No Known Allergies [No Known Allergies*] Allergy (Verified 05/29/23 09:15) Tobacco use date assessed: 03/09/23 Dental Screening Dental Screen Date: 05/29/23 Did you have a dental visit in the last 12 months?: Yes Did you have a dental problem in the last 6 months where you did not have access to dental care?: No Was dental information given to patient?: Patient has dentist HPI HPI Comments History of Present Illness Details 53-year-old male past medical history si gnificant for hypertension, hyperlipidemia, DVT on Eliquis, type 2 diabetes mellitus. Patient presents today for physical exam. Patient reports continues to have difficulty with his 1 touch glucometer, I have sent patient 3 OneTouch glucometer is in the past however every time he gets glaucometer he states initially they work and then they will not work. This is the meter that is covered by his insurance company. Message sent to navigation nurse to schedule an appointment with patient for Education on how to use glucometer. Patient reports overall doing well in the metformin denies any side effects from the medication. Previous A1c 7.8%, will repeat in 1 month. Patient's blood pressure elevated office today 150/100, will add lisinopril to patient's medication regimen. Eye exam: Referred to ophthalmology for annual diabetic eye exams. Colonoscopy: 2020 [facility], 3 polyps removed, recommended 3 year follow up. Referral entered for colonoscopy screening. [facility] Medical History (Updated 05/01/23 @ 07:45 by RETA Paige) Hepatic steatosis Arthritis DVT (deep venous thrombosis) Surgical History History of surgery on arm Previous back surgery Social History Housing: House Alcohol intake: never Patient Tobacco Use Status: Current everyday Tobacco user Tobacco use type: Cigarette Cigarette Packs Per Day: 1 e-Cigarette/Vaping Use: Never Used service: No Current occupational status: unemployed Cognitive needs: No Hearing needs: No Vision needs: No Questionnaire PHQ-9 Over the last 2 weeks, how often have you been bothered by any of the following problems? 1. Little interest or pleasure in doing things: not at all 2. Feeling down, depressed, or hopeless: not at all 3. Trouble falling or staying asleep, or sleeping too much: not at all 4. Feeling tired or having little energy: not at all 5. Poor appetite or overeating: not at all 6. Feeling bad about yourself - or that you are a failure or have let yourself or your family down: not at all 7. Trouble concentrating on things, such as reading the newspaper or watching television: not at all 8. Moving or speaking so slowly that other people could have noticed. Or the opposite - being so fidgety or restless that you have been moving around a lot more than usual: not at all 9. Thoughts that you would be better off or of hurting yourself in some way: not at all Total score: 0 [id number] - PHQ-9 Billing: Yes Source: Developed by Drs. Rupesh Franklin, Malu Wilkes, Tim Nieto and colleagues, with an educational doe from [employer] Thrive Questionnaire Date Thrive assessed: 05/29/23 I am a: Patient Within the past 12 months, did the food you bought not last and you didn't have the money to get more?: Never true Within the past 12 months, did you worry whether your food would run out before you got money to buy more?: Never true Do you have trouble paying for medicines?: No Do you have trouble getting transportation to medical appointments?: No Do you have trouble paying your heating and electricity bill?: No Do you have trouble taking care of your child, family member or friend?: No Do you have trouble with day-to-day activities such as bathing, preparing meals, shopping, managing finances, etc.?: No Are you currently unemployed and looking for a job?: No Are you interested in more education?: No Please select the resources that you would like help with: None Currently or been in a relationship where the following occur: no concerns reported AUDIT C Alcohol Use Questionnaire (AUDIT-C) 1. How often do you have a drink containing alcohol?: Never 3. How often do you have six or more drinks on one occasion?: Never Total Score: 0 JR-7 AMB Questionnaire JR-7 Date JR - 7 assessed: 05/29/23 Feeling nervous, anxious, or on edge: 0 = Not at all Not being able to stop or control worryin = Not at all Worrying too much about different things: 0 = Not at all Trouble relaxin = Not at all Being so restless that it is hard to sit still: 0 = Not at all Becoming easily annoyed or irritable: 0 = Not at all Feeling afraid as if something awful might happen: 0 = Not at all Total JR-7 score (0-4 normal; 5-9 mild; 10-14 moderate; 15-21 severe): 0 Source: Developed by Drs. Rupesh Franklin, Malu Wilkes, Tim Nieto and colleagues, with an educational doe from [employer] JR-7 Assessment Billing JR-7 Assessment Tool: JR-7 Assessment 60058 Review of Systems Const Denies chills, Denies fatigue, Denies fever(s) and Denies poor appetite Eyes Denies no additional complaints ENT Reports Normal hearing present Card Denies chest pain, Denies syncope, Denies rapid heart rate and Denies dyspnea Resp Denies cough and Denies dyspnea GI Denies change in stool character, Denies constipation, Denies diarrhea, Denies nausea and Denies vomiting Denies dysuria, Denies urinary frequency and Denies urinary urgency Neuro Reports Normal hearing present, Denies confusion and Denies syncope Psych Denies confusion Endo Denies fatigue Physical exam (Primary Care) Vital Signs: Last Vital Signs Pulse 75 05/29/23 09:14 BP 150/100 H 05/29/23 09:14 Pulse Ox 98 05/29/23 09:14 Oxygen Delivery Method Room Air 05/29/23 09:14 BMI result Body Mass Index 29.4 Tobacco/Smoking Status: Tobacco use Status Tobacco use date assessed 03/09/23 05/29/23 09:21 Patient Tobacco Use Status Current everyday Tobacco 05/29/23 09:21 Tobacco use type Cigarette 05/29/23 09:21 e-Cigarette/Vaping Use Never Used 05/29/23 09:21 PHQ-9: PHQ-9 Score PHQ-9: Total score 0 05/29/23 10:09 Thrive Assessment: Date of Thrive Assessment Date Thrive assessed 05/29/23 05/29/23 09:26 Currently or been in a relationship where the following occur: no concerns reported Const General: No confusion Orientation/consciousness: No confusion HENMT Head: Yes normocephalic and Yes atraumatic Ears: external ears normal and TM's normal bilaterally General nose exam: Normal external nose present and Normal nasal mucous membranes and turbinates present Face and sinus: Yes normal facial exam and Yes sinuses nontender Mouth: moist mucous membranes Throat: Yes tonsils normal Eyes Conjunctivae: conjunctivae normal Sclerae: sclerae normal Pupils: Equal, round and reactive pupils present and Pupils normal by confrontation EOM: EOMs intact bilaterally Direct Ophthalmoscopy: normal light reflex Neck Neck: Yes no lymphadenopathy and Yes supple Thyroid: Thyroid normal Chest Chest palpation & inspection: normal inspection of the chest Resp Effort & Inspection: normal respiratory effort Auscultation: clear to auscultation bilaterally, no crackles, no rhonchi and no wheezes Cardio Rate: regular rate Rhythm: regular rhythm Peripheral pulses: radial pulses present and dorsalis pedis present GI Inspection: Yes normal to inspection Palpation (GI): Soft to palpation, nontender and No hepatosplenomegaly present Auscultation: normoactive bowel sounds Skin General skin exam: no rashes or lesions noted Neuro General: No confusion Cranial nerves: Yes Equal, round and reactive pupils present and Yes Normal hearing present Cognition (Neuro): normal cognition Gait exam (Neuro): Normal gait present Motor exam (neuro): 5/5 motor strength present throughout Deep tendon reflexes (DTR's): Right brachioradialis reflex intensity grade: 2+, Left brachioradialis reflex intensity grade: 2+, Right patellar reflex intensity grade: 2+ and Left patellar reflex intensity grade: 2+ Extrem General: No edema Assessment and Plan Assessment & Plan (1) Type 2 diabetes mellitus: Code(s): E11.9 - Type 2 diabetes mellitus without complications Plan: Continue on metformin 500 mg daily. Hemoglobin A1c follow-up ordered in 1 month. Navigation nurse sent message to schedule appointment with patient for glucometer Education. ?Patient educated to decrease the amount of carbohydrate intake such as pasta, bread, rice and potatoes are all sugar in addition to the sweet stuff. Remember that fruits are good but they also have sugar.Hemoglobin A1c goal of less than 6.5% (2) DVT (deep venous thrombosis): Comment: Left leg; 2 years ago Code(s): I82.409 - Acute embolism and thrombosis of unspecified deep veins of unspecified lower extremity Plan: Continue on Eliquis. Continue to follow with state historical society director. (3) Hyperlipidemia: Code(s): E78.5 - Hyperlipidemia, unspecified Plan: Continue to follow low-cholesterol diet Repeat fasting lipid panel ordered (4) Hypertension: Code(s): I10 - Essential (primary) hypertension Plan: Continue on hydrochlorothiazide, will add lisinopril 5 mg daily given elevated blood pressure 150/100 in office today. Patient advised to follow low-salt diet exercise (5) Physical exam, annual: Code(s): Z00.00 - Encounter for general adult medical examination without abnormal findings Plan: Follow-up in 1 year sooner if needed Plan Follow-up in 3 months Orders: Orders Hemoglobin A1c 1 Month E11.9 - Type 2 diabetes mellitus without complications Comprehensive Met. Panel 1 Month E11.9 - Type 2 diabetes mellitus without complications PSA,Total (Free>4and<10) Today Z12.5 - Encounter for screening for malignant neoplasm of prostate Referrals Gastroenterology Referral Z12.11 - Encounter for screening for malignant neoplasm of colon Ophthalmology Referral E11.319 - Type 2 diabetes mellitus with unspecified diabetic retinopathy without macular edema Medications: New lisinopril 5 mg PO DAILY 30 tabs 3RF Coding Level of Care Code Est Pt Prev Care 40-64y(69764) Diagnoses Type 2 diabetes mellitus E11.9 DVT (deep venous thrombosis) I82.409 Hyperlipidemia E78.5 Hypertension I10 Physical exam, annual Z00.00 Additional Codes JR-7 Assessment Billing - JR-7 Assessment Tool: JR-7 Assessment [id number] ([id number])
== END 2023-05-29 09:44 | disposition home or self-care (01) ==
PROVIDERS: PCP Nurse Practitioner Family; Visit Provider Nurse Practitioner Family
DX: E11.9 Type 2 diabetes mellitus without complications (principal); I82.409 Acute embolism and thrombosis of unspecified deep veins of unspecified lower extremity; E78.5 Hyperlipidemia, unspecified; I10 Essential (primary) hypertension; Z00.00 Encounter for general adult medical examination without abnormal findings
CPT/HCPCS: 99214; 99396

== ENCOUNTER 2023-07-05 08:12 | Outpatient (AMB) | payer OTHER, SELFPAY ==
--- NOTE | 2023-07-05 08:19 | A.OFFVIS_ITS ---
Intake Vital Signs 07/05/23 08:32 Height 6 ft Weight 218 lb BMI 29.6 BP 140/90 H Blood Pressure Location Lt brachial Position Sitting Intake Visit Reasons: Colonoscopy screening Intake Note: Patient is seen in office for colonoscopy screening. Pt c/o: had colonoscopy done in the past 3 yrs at [facility] had polyps removed at the time and was told to repeat every 3 yrs, denies nausea, vomit, diarrhea, constipation, no upset stomach, eating well. 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 Accompanied by: Family/Other Allergies No Known Allergies [No Known Allergies*] Allergy (Verified 07/05/23 08:35) Medication List - Last Reconciled 07/05/23 by Arina Giron PA-C apixaban (Eliquis) 5 mg PO BID atorvastatin 20 mg PO DAILY baclofen 5 mg PO BID blood sugar diagnostic ([employer] Ultra Test strips) Check Blood sugar Daily blood-glucose meter ([employer] Ultra2 Meter) As directed cholecalciferol (vitamin D3) 25 mcg PO DAILY hydrochlorothiazide 50 mg PO DAILY lancets ([employer] UltraSoft 2 Lancet) Once Daily lisinopril 5 mg PO DAILY metformin 500 mg PO DAILY mirtazapine 15 mg PO BEDTIME omeprazole 20 mg PO DAILY trazodone 200 mg PO BEDTIME PRN HPI HPI Comments History of Present Illness Details A 53 y/o male hx 3 adenomas- 2020- @[facility]-he is due for 3 year polyp surveillance He has no GI complaints-he is accompanied by his Chronic back pain- R leg DVT- 5 years ago- eliquis since-has stopped for procedures- no incidence- Bowels -normal pattern Appetite good- No N/V/D/ abdominal pain., fever ior chills [facility] Medical History (Updated 07/05/23 @ 10:09 by Arina Giron PA-C) 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 Colon adenomas Hepatic steatosis Arthritis DVT (deep venous thrombosis) Surgical History History of colonoscopy (01/2021) History of surgery on arm Previous back surgery Social History Housing: House Alcohol intake: never Patient Tobacco Use Status: Current everyday Tobacco user Tobacco use type: Cigarette Cigarette Packs Per Day: 1 e-Cigarette/Vaping Use: Never Used service: No Current occupational status: unemployed Cognitive needs: No Hearing needs: No Vision needs: No Review of Systems Const All systems reviewed & are unremarkable except as noted in HPI and below Card Denies chest pain and Denies dyspnea Resp Denies dyspnea GI Denies abdominal pain, Denies heartburn, Denies nausea and Denies vomiting Musc Reports back pain and Reports arthralgias Physical Exam Vital Signs: Last Vital Signs BP 140/90 H 07/05/23 08:32 BMI result Body Mass Index 29.6 Const General: cooperative, healthy appearing, comfortable and no acute distress Orientation/consciousness: patient oriented x3 Limitations: no limitations Eyes Sclerae: sclerae normal Resp Effort & Inspection: normal respiratory effort and able to speak in complete sentences Auscultation: clear to auscultation bilaterally, no rales, no rhonchi and no wheezes Cardio Rate: regular rate Rhythm: regular rhythm Heart sounds: S1 normal heart sound present and S2 normal heart sound present GI Palpation (GI): Soft to palpation and nontender Auscultation: normal bowel sounds Skin General skin exam: no rashes or lesions noted Neuro General: patient oriented x3 Extrem General: Yes full ROM Psych Appearance: grossly normal and well kempt Mental Status: mental status grossly normal Speech and movement: Normal speech and movement present Affect: normal affect Attitude: cooperative Thought process: Normal thought process present Assessment & Plan Assessment & Plan (1) Colon adenomas: Comment: 2020 repeat polyp surveillance colonoscopy showed 3 adenoma- Discussed procedure, rare risks need for escorted due to anesthesia and prep Code(s): D12.6 - Benign neoplasm of colon, unspecified Plan: polyp surveillance colonoscopy (2) DVT (deep venous thrombosis): Comment: Left leg; 2 years ago Code(s): I82.409 - Acute embolism and thrombosis of unspecified deep veins of unspecified lower extremity Plan: Eliquis typically discontinue 2 days prior to procedure in anticipation of polypectomy (3) 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: Comment: Eliquis x5 years has discontinued previously for other procedures non issue Code(s): Z79.01 - correction (current) use of 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 Plan polyp surveillance colonoscopy MG prep D/C eliquis 2 days-prescribed by PCP Omit metformin esthela before- am of- no DM meds Orders: Orders Colonoscopy - GI Use Only Today D12.6 - Benign neoplasm of colon, unspecified, Z79.01 - correction (current) use of 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 Medications: New bisacodyl (Dulcolax (bisacodyl)) Day before procedure, prep day Take 4 tablets by mouth upon awakening followed by large glass of water 20 mg (4 x 5 mg) PO ONCE 1 day 4 tabs 0RF colonoscopy prep Z12.11 - Encounter for screening for malignant neoplasm of colon polyethylene glycol 3350 (Miralax) Take as directed by mouth the day before your procedure. 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
[2023-07-05 08:32] VITALS: BP 140/90; BMI 29.6
== END 2023-07-05 08:57 | disposition home or self-care (01) ==
PROVIDERS: PCP Nurse Practitioner Family; Visit Provider Physician Assistant
DX: D12.6 Benign neoplasm of colon, unspecified (principal); I82.409 Acute embolism and thrombosis of unspecified deep veins of unspecified lower extremity; Z79.01 Long term (current) use of 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
CPT/HCPCS: 99203

== ENCOUNTER → 2023-07-05 08:12 | Outpatient (BNVA) | payer OTHER, SELFPAY | PROVIDERS: PCP Nurse Practitioner Family; Visit Provider Physician Assistant | DX: Z86.010 Personal history of colon polyps (principal); Z86.718 Personal history of other venous thrombosis and embolism; Z79.01 Long term (current) use of 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 | CPT/HCPCS: 99202 ==

== ENCOUNTER 2023-08-29 08:38 | Outpatient (AMB) | payer OTHER, SELFPAY ==
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
[2023-08-29 09:13] VITALS: BP 124/60; BMI 27.8
== END 2023-08-29 10:04 | disposition home or self-care (01) ==
PROVIDERS: PCP Internal Medicine; Visit Provider Internal Medicine
DX: E11.9 Type 2 diabetes mellitus without complications (principal); I82.409 Acute embolism and thrombosis of unspecified deep veins of unspecified lower extremity; M54.16 Radiculopathy, lumbar region
CPT/HCPCS: 83036; 99214

== ENCOUNTER 2023-08-29 10:09 | Outpatient (REF) | payer OTHER, SELFPAY ==
[2023-08-29 10:53] LABS: Hematocrit 42.5 % (42.0-52.0); Mean Corpuscular HGB Conc 35.3 g/dl (31.0-36.0); Mean Corpuscular Volume 90.6 fL (80.0-98.0); Platelet Count 246 X10*3/uL (160-400); Red Blood Count 4.69 X10*6/uL (4.60-5.80); Red Cell Distribution Width 12.7 % (11.0-16.0); White Blood Count 6.5 X10*3/uL (4.8-10.8)
[2023-08-29 12:17] LABS: Alanine Aminotransferase 32 U/L (0-40); Albumin Level 4.4 g/dL (3.5-5.0); Alkaline Phosphatase 95 U/L (39-117); Anion Gap 10 (12-20); Aspartate Amino Transferase 23 U/L (5-37); Bilirubin Direct 0.1 mg/dL (0.0-0.5); Bilirubin Total 0.4 mg/dL (0.0-1.0); Blood Urea Nitrogen 23 mg/dL (9-16); Calcium 10.1 mg/dL (8.4-10.2); Carbon Dioxide 27 mmol/L (22-29); Chloride 106 mmol/L (96-108); Cholesterol 243 mg/dL (<200); Estimated Glomerular Filt Rate > 60; Glucose Random 92 mg/dL (60-115); HDL Cholesterol 33 mg/dL (>40); LDL Cholesterol Calculated 185 mg/dL (<100); Potassium 4.3 mmol/L (3.3-5.1); Sodium 139 mmol/L (135-145); Total Protein 7.7 g/dL (6.5-8.0); Triglycerides 128 mg/dL (<150)
== END 2023-08-29 10:10 | disposition home or self-care (01) ==
LOC: HO.LAB 10:09
PROVIDERS: PCP Internal Medicine; Visit Provider Internal Medicine
DX: E11.9 Type 2 diabetes mellitus without complications (principal); I82.409 Acute embolism and thrombosis of unspecified deep veins of unspecified lower extremity
CPT/HCPCS: 36415; 80048; 80061; 80076; 84443; 85027

== ENCOUNTER 2023-11-01 07:51 | Day surgery (SDC) | payer OTHER, SELFPAY ==
[2023-10-31 09:17] VITALS: BMI 29.6
--- NOTE | 2023-10-31 09:30 | HO.ANESPROP2 ---
Documented by User: Alley Peterson NP 10/31/23 09:31 HPI - Anesthesia Eval Consult details Narrative: 53yo M for Colonoscopy Elquis for DVT PMFSH Active Problems Active Problems: All Active Problems Type 2 diabetes mellitus (Acute) Hip pain, right (Acute) Hypercalcemia (Acute) Elevated fasting glucose (Acute) Elevated liver enzymes (Acute) Lumbar radicular pain (Acute) Hyperlipidemia (Acute) Hypertension (Acute) Abdominal pain (Acute) nursing home current use of anticoagulant (Acute) Colon adenomas (Acute) DVT (deep venous thrombosis) (Acute) Past Medical History Medical History Diabetes nursing home current use of anticoagulant Colon adenomas Hepatic steatosis Arthritis DVT (deep venous thrombosis) Surgical History Surgical History History of colonoscopy (01/2021) History of surgery on arm Previous back surgery Social History Social History Housing: House Alcohol intake: never Patient Tobacco Use Status: Current everyday Tobacco user Tobacco use type: Cigarette Cigarette Packs Per Day: 1 Cigarettes Per Day: 20 e-Cigarette/Vaping Use: Never Used Second Hand Smoke Exposure: Yes Advance Directives: No Advance Directives Information Provided: Yes service: No Current occupational status: unemployed Cognitive needs: No Hearing needs: No Vision needs: No Meds Allergies Allergy/AdvReac Type Severity Reaction Status Date / Time No Known Allergies Allergy Verified 11/01/23 08:10 [No Known Allergies*] Home Medications ?Medication ?Instructions ?Recorded ?Confirmed ?Last Taken ?Type apixaban 5 mg tablet (Eliquis) 5 mg PO BID 03/09/23 11/01/23 10/29/23 History mirtazapine 15 mg tablet 15 mg PO BEDTIME 03/09/23 11/01/23 Unknown History omeprazole 20 mg capsule,delayed 20 mg PO DAILY 03/09/23 11/01/23 Unknown History release trazodone 100 mg tablet 200 mg PO BEDTIME PRN Insomnia 03/09/23 11/01/23 Unknown History Exam Height,Weight and Vital Signs: Height 6 ft Weight 98.883 kg Assessment and Plan Assessment Anesthesia Assessment: Chart Reviewed Documented by User: Yarelis Husain MD 11/01/23 08:20 PMFSH Past Medical History Medical History Diabetes nursing home current use of anticoagulant Colon adenomas Hepatic steatosis Arthritis DVT (deep venous thrombosis) Family History Family history of problems with anesthesia: No Surgical History Surgical History History of colonoscopy (01/2021) History of surgery on arm Previous back surgery History of Problems with Anesthesia: No Social History Social History Housing: House Alcohol intake: never Patient Tobacco Use Status: Current everyday Tobacco user Tobacco use type: Cigarette Cigarette Packs Per Day: 1 Cigarettes Per Day: 20 e-Cigarette/Vaping Use: Never Used Second Hand Smoke Exposure: Yes Advance Directives: No Advance Directives Information Provided: Yes service: No Current occupational status: unemployed Cognitive needs: No Hearing needs: No Vision needs: No Meds Allergies Allergy/AdvReac Type Severity Reaction Status Date / Time No Known Allergies Allergy Verified 11/01/23 08:10 [No Known Allergies*] Home Medications ?Medication ?Instructions ?Recorded ?Confirmed ?Last Taken ?Type apixaban 5 mg tablet (Eliquis) 5 mg PO BID 03/09/23 11/01/23 10/29/23 History mirtazapine 15 mg tablet 15 mg PO BEDTIME 03/09/23 11/01/23 Unknown History omeprazole 20 mg capsule,delayed 20 mg PO DAILY 03/09/23 11/01/23 Unknown History release trazodone 100 mg tablet 200 mg PO BEDTIME PRN Insomnia 03/09/23 11/01/23 Unknown History Exam Airway Mallampati Class: II TM Dist: >3cm Neck ROM: Full Denture: Upper Heart: rrr Lungs: cta Assessment and Plan Assessment Anesthesia Assessment: Anesthesia Plan Discussed Final Anesthetic Review Family History of Problems with Anesthesia: No History of Problems with Anesthesia: No NPO: Yes ASA Class: III Final Preanesthetic Review: No Changes in Pt Med Stat, Meds/Allgs Chart Reviewed and Consent Obtained/Reviewed Patient Risk: Low Procedure Risk: Low Anesthetic Plan Anesthetic Plan: MAC: Disposition: Standard PACU
[2023-11-01 08:13] VITALS: BP 130/81; PULSE 67; RESP 16; TEMP 36.9; O2SAT 97; BMI 29.8
[2023-11-01] MEDS: Lactated Ringers 1,000 ML 100 ML IVCONT (08:51)
[2023-11-01 08:53] LABS: Glucose, Whole Blood 120 mg/dL (60-115)
--- NOTE | 2023-11-01 08:53 | P.OPN-COLO_ITS ---
Colonoscopy Operative Note Operative Note Date of Service: 11/01/23 Narrative: Operative Information Procedure Description: Colonoscopy Indication: screening Anesthesia: MAC COLONOSCOPY Instrument: Olympus variable stiffness pediatric scope 190L Colonoscopy Monitoring: Vital signs and clinical assessment, continuous EKG monitoring, Pulse oximetry, Carbon Dioxide monitoring and blood pressure monitoring were done throughout the procedure. Colon withdrawal time was 10 minutes. Procedure: The patient was placed in the left lateral decubitis position and pre-procedure medications were administered. After a digital rectal examination of the ano-rectum, the video colonoscope was inserted into the rectum and advanced through the colon to the cecum/TI. The colonoscope was slowly withdrawn in a retrograde panoramic fashion and the colon mucosa was carefully examined including a retroflexed view of the rectum. Findings and interventions are described below. Procedure Difficulty: easy Findings: Terminal Ileum-normal Cecum:normal Ascending Colon: normal Transverse Colon -normal Descending Colon:normal Sigmoid Colon: normal Rectum: Retroflexion with small internal hemorrhoids seen, grade I Anorectum - normal Intervention: none Colon preparation: [place] Bowel Preparation Scale Right colon; 1 Transverse colon: 1 Left colon; 1-2 (0 = Unprepared colon segment with mucosa not seen due to solid stool that cannot be cleared. 1 = Portion of mucosa of the colon segment seen, but other areas of the colon segment not well seen due to staining, residual stool and/or opaque liquid. 2 = Minor amount of residual staining, small fragments of stool and/or opaque liquid, but mucosa of colon segment seen well. 3 = Entire mucosa of colon segment seen well with no residual staining, small fragments of stool or opaque liquid) Impression and Post Procedure Diagnosis: internal hemorrhoids Plan: High fiber diet leaflet Avoid straining at stool, epsom salts and sitz bath, anusol supps or cream Repeat Colonoscopy in 6-12 months due to poor prep or earlier if clinically indicated can restart apixiban today Above findings were reviewed with the patient and relevant handouts were provided if indicated.
--- NOTE | 2023-11-01 08:53 | MHC.SHP ---
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 Colon adenomas Hepatic steatosis Arthritis DVT (deep venous thrombosis)) History of Previous Operations: Relevant previous surgery/procedure and date(s) (History of colonoscopy (01/2021) History of surgery on arm Previous back surgery) Allergies: Allergies Allergy/AdvReac Type Severity Reaction Status Date / Time No Known Allergies Allergy Verified 11/01/23 08:10 [No Known Allergies*] Review of Systems Sugical H&P ROS: Negative: Constitution, Cardiovascular, Respiratory, Neurological, Psychiatric, Hem-Onc, Allergic/Immunologic, Gastrointestinal, Genitourinary, Musculoskeletal, Integumentary, Endocrine and Eyes/Ears/Nose/Throat Exam Surgical H&P Exam: Normal: HEENT, Normal: Heart, Normal: Lungs, Normal: Extremities, Normal: Abdomen, Normal: Skin and Normal: Neurological Plan Diagnosis/Plan: Unchanged I have reviewed the history and physical and performed a pertinent physical examination on my patient. No changes have occurred unless specified. Time Spent With Patient Time: Total time managing care of this patient today ____ minutes.
[2023-11-01 09:26] VITALS: BP 98/50; PULSE 64; RESP 16; TEMP 36.4; O2SAT 95
[2023-11-01 09:41] VITALS: BP 99/52; PULSE 69; RESP 18; TEMP 36.8; O2SAT 99
== END 2023-11-01 10:16 | disposition home or self-care (01) ==
PROVIDERS: PCP Internal Medicine; Visit Provider Internal Medicine Gastroenterology
PROC: 0DJD8ZZ Inspection of Lower Intestinal Tract, Via Natural or Artificial Opening Endoscopic (ICD-10-PCS; CPT 45378; principal; 2023-11-01 09:20)
DX: Z12.11 Encounter for screening for malignant neoplasm of colon (principal); K64.0 First degree hemorrhoids; Z86.010 Personal history of colon polyps; E11.9 Type 2 diabetes mellitus without complications; Z86.718 Personal history of other venous thrombosis and embolism; Z79.01 Long term (current) use of 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
CPT/HCPCS: G0105; 82947; J2704

== ENCOUNTER → 2023-11-01 07:51 | Outpatient (BNV) | payer OTHER, SELFPAY | PROVIDERS: PCP Internal Medicine; Visit Provider Internal Medicine Gastroenterology | DX: Z12.11 Encounter for screening for malignant neoplasm of colon (principal); K64.0 First degree hemorrhoids; Z91.199 Patient's noncompliance with other medical treatment and regimen due to unspecified reason | CPT/HCPCS: G0121 ==

== ENCOUNTER 2023-11-15 07:49 | Outpatient (AMB) | payer OTHER, SELFPAY ==
--- NOTE | 2023-11-15 07:54 | MHC.OFFVIS ---
Vital Signs 11/15/23 08:03 Height 6 ft Weight 207 lb BMI 28.1 BP 146/74 H Blood Pressure Location Lt brachial Position Sitting Pulse 72 Intake Visit Reasons: s/p colon Intake Note: Patient follow up for colonoscopy results Patient denies any other GI issues. 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: Yes Leases And Land Supervisor Name: Ana ophthalmic medical technologist Accompanied by: Family/Other Allergies No Known Allergies [No Known Allergies*] Allergy (Verified 11/01/23 08:10) Medication List - Last Reconciled 11/15/23 by Arina Giron PA-C apixaban (Eliquis) 5 mg PO BID atorvastatin 40 mg PO DAILY blood sugar diagnostic (Vantrixuch Ultra Test strips) Check Blood sugar Daily blood-glucose meter (Vantrixuch Ultra2 Meter) As directed cholecalciferol (vitamin D3) 25 mcg PO DAILY cholecalciferol (vitamin D3) 1,250 mcg PO QWEEK cyclobenzaprine 10 mg PO BEDTIME hydrochlorothiazide 50 mg PO DAILY lancets (Vantrixuch UltraSoft 2 Lancet) Once Daily lisinopril 5 mg PO DAILY metformin 500 mg PO DAILY mirtazapine 15 mg PO BEDTIME omeprazole 20 mg PO DAILY trazodone 200 mg PO BEDTIME PRN HPI Comments Details: A 53 y/o male long-term anticoagulation for DVTs, personal hx adenomas-he is accompanied by his f/u after colonoscopy-he is aware that he had an Inadequate prep He says that he did follow instructions for prep He has a normal bowel pattern typically does not have constipation Appetite is good No nausea, vomiting hematemesis, hematochezia fever chills PFSH 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 Colon adenomas Hepatic steatosis Arthritis DVT (deep venous thrombosis) Surgical History History of colonoscopy (01/2021) History of surgery on arm Previous back surgery Social History Housing: House Alcohol intake: never Patient Tobacco Use Status: Current everyday Tobacco user Tobacco use type: Cigarette Cigarette Packs Per Day: 0.5 Cigarettes Per Day: 10.0 e-Cigarette/Vaping Use: Never Used Second Hand Smoke Exposure: Yes service: No Current occupational status: unemployed Cognitive needs: No Hearing needs: No Vision needs: No Review of Systems Const All systems reviewed & are unremarkable except as noted in HPI and below Physical Exam Vital Signs: Last Vital Signs Pulse 72 11/15/23 08:03 BP 146/74 H 11/15/23 08:03 BMI result Body Mass Index 28.1 Const General: cooperative, healthy appearing, comfortable and no acute distress Orientation/consciousness: patient oriented x3 Limitations: language barrier Resp Effort & Inspection: normal respiratory effort and able to speak in complete sentences Neuro General: patient oriented x3 Extrem General: Yes full ROM Psych Appearance: grossly normal and well kempt Mental Status: mental status grossly normal Speech and movement: Normal speech and movement present Affect: normal affect Attitude: cooperative Thought content: Normal thought content present Assessment & Plan Assessment & Plan (1) Colon adenomas: Comment: 2020 08 adenoma-2023 colonoscopy inadequate prep Will reschedule- Discussed procedure, rare risks need for escorted due to anesthesia and prep Code(s): D12.6 - Benign neoplasm of colon, unspecified Category: Medical Plan: Repeat colonoscopy with extended prep (2) senior care current use of anticoagulant: Comment: Eliquis x5 years has discontinued previously for other procedures non issue Code(s): Z79.01 - 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) use of 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 Category: Medical Plan: Hold Eliquis 2 days prior to procedure in anticipation of polypectomy Plan f/u OV 6 months- extend colon prep- with dulcolax-QD- x 3 days prior to prep day Patient Instructions: Pleasant 53-year-old male history of colon follows up after recent repeat colonoscopy-inadequate prep Reviewed procedure report, recommendation Reinforced importance of repeat colonoscopy is recommended Follow-up office visit, 6 months, will reinforce extended prep Encouraged to call with any questions or concerns No major barriers to understanding were identified Coding Level of Care Code Est Pt Level 3 (98536) Diagnoses Colon adenomas D12.6 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
[2023-11-15 08:03] VITALS: BP 146/74; PULSE 72; BMI 28.1
== END 2023-11-15 08:11 | disposition home or self-care (01) ==
PROVIDERS: PCP Nurse Practitioner Family; Visit Provider Physician Assistant
DX: D12.6 Benign neoplasm of colon, unspecified (principal); Z79.01 Long term (current) use of 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
CPT/HCPCS: 99213

== ENCOUNTER → 2023-11-15 07:49 | Outpatient (BNVA) | payer OTHER, SELFPAY | PROVIDERS: PCP Nurse Practitioner Family; Visit Provider Physician Assistant | DX: D12.6 Benign neoplasm of colon, unspecified (principal); Z86.718 Personal history of other venous thrombosis and embolism; Z79.01 Long term (current) use of 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 | CPT/HCPCS: 99212 ==

== ENCOUNTER 2023-11-16 11:21 | Emergency (ER) | payer OTHER, SELFPAY ==
[2023-11-16 11:30] VITALS: BP 160/96; PULSE 70; O2SAT 98
--- NOTE | 2023-11-16 11:30 | ED.GENADULT ---
HPI - General Adult General Chief complaint: General Medical Stated complaint: HANDS/FINGERS NUMB THIS AM,NEG FAST-ED PER EMS Related Data Home Medications ?Medication ?Instructions ?Recorded ?Confirmed apixaban 5 mg tablet (Eliquis) 5 mg PO BID 03/09/23 11/15/23 mirtazapine 15 mg tablet 15 mg PO BEDTIME 03/09/23 11/15/23 omeprazole 20 mg capsule,delayed 20 mg PO DAILY 03/09/23 11/15/23 release trazodone 100 mg tablet 200 mg PO BEDTIME PRN Insomnia 03/09/23 11/15/23 Previous Rx's ?Medication ?Instructions ?Recorded blood sugar diagnostic (OneTouch #100 ea 05/15/23 Ultra Test strips) lancets 30 gauge (OneTouch #200 ea 05/15/23 UltraSoft 2 Lancet) blood-glucose meter (OneTouch #1 ea 06/15/23 Ultra2 Meter) cyclobenzaprine 10 mg tablet 10 mg PO BEDTIME #14 tabs 09/06/23 hydrochlorothiazide 50 mg tablet 50 mg PO DAILY #90 tabs 09/06/23 atorvastatin 40 mg tablet 40 mg PO DAILY #90 tabs 09/07/23 cholecalciferol (vitamin D3) 1,250 1,250 mcg PO QWEEK #14 caps 09/07/23 mcg (50,000 unit) capsule lisinopril 5 mg tablet 5 mg PO DAILY #90 tabs 09/27/23 metformin 500 mg tablet 500 mg PO DAILY #90 tabs 09/27/23 cholecalciferol (vitamin D3) 25 25 mcg PO DAILY #90 tabs 10/31/23 mcg (1,000 unit) tablet Allergies Allergy/AdvReac Type Severity Reaction Status Date / Time No Known Allergies Allergy Verified 11/16/23 11:34 [No Known Allergies*] [facility] Past Medical History Medical History Diabetes [facility] current use of anticoagulant Colon adenomas Hepatic steatosis Arthritis DVT (deep venous thrombosis) Surgical History History of colonoscopy (01/2021) History of surgery on arm Previous back surgery Social History Social History Housing: House Alcohol intake: never Patient Tobacco Use Status: Current everyday Tobacco user Tobacco use type: Cigarette Cigarette Packs Per Day: 0.5 Cigarettes Per Day: 10.0 e-Cigarette/Vaping Use: Never Used Second Hand Smoke Exposure: Yes Advance Directives: No Advance Directives Information Provided: No service: No Current occupational status: unemployed Cognitive needs: No Hearing needs: No Vision needs: No Physical Exam ED Vital Signs: Vital Signs - 24 hr 11/16/23 11:31 Temperature 98 F Pulse Rate 63 Respiratory Rate 18 Blood Pressure 146/86 H Pulse Oximetry 99 Oxygen Delivery Method Room Air BMI result Body Mass Index 28.2 Course Course Course Narrative: This is an RME done by DEMOND Caballero: Additional HPI, ROS, PE not included below will be deferred to primary provider. 53 year old male pmh of Frop9QD, hypercalcemia, hld, htn, chcf current use of anticoagulant, colon adenomas, DVT, presents with complaints of bilateral hand numbness and upper thoracic pain he rates a 20/10. States the numbness began an hour and half ago and it comes and goes. Patient also complains of epiogastric pain. Denies alcohol or drug use, recent travel or sick contacts. also denies change in bowel or bladder habits. Appearance: Alert.? Oriented X3.? No acute cardiopulmonary distress distress.? Head: Normocephalic, atraumatic, no step-offs or deformities Neck: Normal inspection.? Neck supple.? CVS: Pulses normal.? Respiratory: No respiratory distress.? Skin: ? Normal skin color. Extremities: 5/5 strength to bilateral upper and lower extremities Back: No midline tenderness, no C-spine tenderness, full range of motion, No CVA tenderness bilaterally Neuro: Oriented X 3.? No motor deficit.? No sensory deficit. 1300 Patient was called multiple times to get brought into the department. No answer. Discharge Plan Discharge Clinical Impression: Eloped from emergency department Patient Disposition: Left W/O Completing Treatment Prescriptions: No Action (DME) lancets [OneTouch UltraSoft 2 Lancet] 30 gauge misc See Rx Instructions .Route Qty: 200 4RF Rx Instructions: Once Daily (DME) OneTouch Ultra Test Strip See Rx Instructions .Route Qty: 100 4RF Rx Instructions: Check Blood sugar Daily (DME) blood-glucose meter [OneTouch Ultra2 Meter] [facility] See Rx Instructions .Route Qty: 1 0RF Rx Instructions: As directed cyclobenzaprine 10 mg tablet 10 mg PO BEDTIME Qty: 14 0RF hydrochlorothiazide 50 mg tablet 50 mg PO DAILY Qty: 90 1RF atorvastatin 40 mg tablet 40 mg PO DAILY Qty: 90 1RF cholecalciferol (vitamin D3) 1,250 mcg (50,000 unit) capsule 1,250 mcg PO QWEEK Qty: 14 1RF lisinopril 5 mg tablet 5 mg PO DAILY Qty: 90 1RF metformin 500 mg tablet 500 mg PO DAILY Qty: 90 1RF cholecalciferol (vitamin D3) 25 mcg (1,000 unit) tablet 25 mcg PO DAILY Qty: 90 0RF omeprazole 20 mg capsule,delayed release(DR/EC) 20 mg PO DAILY mirtazapine 15 mg tablet 15 mg PO BEDTIME trazodone 100 mg tablet 200 mg PO BEDTIME PRN (Reason: Insomnia) Eliquis 5 mg tablet 5 mg PO BID
[2023-11-16 11:31] VITALS: BP 146/86; PULSE 63; RESP 18; TEMP 36.6; O2SAT 99; BMI 28.2
--- NOTE | 2023-11-16 12:10 | MHC.EDTECH ---
No answer for labwork at 1205
== END 2023-11-16 15:56 | disposition left against medical advice (07) ==
PROVIDERS: Emergency Provider Emergency Medicine
DX: R20.0 Anesthesia of skin (principal); E11.9 Type 2 diabetes mellitus without complications; I10 Essential (primary) hypertension; Z86.718 Personal history of other venous thrombosis and embolism; Z79.01 Long term (current) use of 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
CPT/HCPCS: 99281

== ENCOUNTER 2023-11-22 08:09 | Outpatient (AMB) | payer OTHER, SELFPAY ==
--- NOTE | 2023-11-22 08:31 | MHC.PC.OV ---
Vital Signs 11/22/23 08:32 Height 6 ft Weight 204 lb 2 oz BMI 27.7 BP 120/80 Blood Pressure Location Rt brachial Position Sitting Pulse 74 Pulse Source Pulse Oximeter Pulse Oximetry (%) 99 Oxygen Delivery Method Room Air Intake Visit Reasons: [facility] 11/15 Hands/ finger numb Intake Note: Patient is here to follow-up after a visit the emergency department at [facility] on 11/16/23. Complaint of pain and numbness in both hands on going for a year. Network Support Administrator Required: No Hospice Administrator: Present Accompanied by: Spouse Allergies No Known Allergies [No Known Allergies*] Allergy (Verified 11/22/23 09:11) Medication List - Last Reconciled 11/22/23 by Delmer Crabtree MD apixaban (Eliquis) 5 mg PO BID atorvastatin 40 mg PO DAILY blood sugar diagnostic (ShineonTouch Ultra Test strips) Check Blood sugar Daily blood-glucose meter (ShineonTouch Ultra2 Meter) As directed cholecalciferol (vitamin D3) 25 mcg PO DAILY cholecalciferol (vitamin D3) 1,250 mcg PO QWEEK cyclobenzaprine 10 mg PO BEDTIME hydrochlorothiazide 50 mg PO DAILY lancets (ShineonTouch UltraSoft 2 Lancet) Once Daily lisinopril 5 mg PO DAILY metformin 500 mg PO DAILY mirtazapine 15 mg PO BEDTIME omeprazole 20 mg PO DAILY trazodone 200 mg PO BEDTIME PRN Tobacco use date assessed: 11/22/23 Dental Screening Dental Screen Date: 08/29/23 HPI [facility] 11/15 Hands/ finger numb HPI Details 53-year-old male presents to the office for a sick visit. Patient is complaining of upper back pain that has worsened in the last week. 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 He has a stimulator for the lower back. Currently having a lot of discomfort in the upper back radiating into both arms. Some tingling and numbness in both arms. No loss of function. Since last office visit, patient is also discontinued lisinopril. He reports that he is having discomfort on the left side of the chest along the ribs when he was on lisinopril. He discontinued the medications 2 weeks after use and has been pain-free since. [facility] Medical History Diabetes [facility] current use of anticoagulant Colon adenomas Hepatic steatosis Arthritis DVT (deep venous thrombosis) Surgical History History of colonoscopy (01/2021) History of surgery on arm Previous back surgery Social History Housing: House Alcohol intake: never Patient Tobacco Use Status: Current everyday Tobacco user Tobacco use type: Cigarette Cigarette Packs Per Day: 0.5 Cigarettes Per Day: 10.0 e-Cigarette/Vaping Use: Never Used Second Hand Smoke Exposure: Yes service: No Current occupational status: unemployed Cognitive needs: No Hearing needs: No Vision needs: No Questionnaire Thrive Questionnaire Date Thrive assessed: 08/29/23 JR-7 AMB Questionnaire JR-7 Date JR - 7 assessed: 08/29/23 Source: Developed by Drs. Rupesh Franklin, Malu Wilkes, Tim Nieto and colleagues, with an educational doe from [employer]. Physical exam (Primary Care) Vital Signs: Last Vital Signs Pulse 74 11/22/23 08:32 BP 120/80 11/22/23 08:32 Pulse Ox 99 11/22/23 08:32 Oxygen Delivery Method Room Air 11/22/23 08:32 BMI result Body Mass Index 27.7 Tobacco/Smoking Status: Tobacco use Status Tobacco use date assessed 11/22/23 11/22/23 08:39 Patient Tobacco Use Status Current everyday Tobacco 11/22/23 08:39 Tobacco use type Cigarette 11/22/23 08:39 e-Cigarette/Vaping Use Never Used 11/22/23 08:39 Thrive Assessment: Date of Thrive Assessment Date Thrive assessed 08/29/23 11/22/23 08:39 Const General: cooperative and healthy appearing Nutritional Appearance: well nourished Orientation/consciousness: patient oriented x3 Limitations: no limitations HENMT Head: Yes normal to inspection Eyes General: appearance normal, both eyes and all related structures Neck Neck: Yes normal visual inspection Chest Chest palpation & inspection: normal palpation of entire chest wall Resp Effort & Inspection: normal respiratory effort Neuro General: patient oriented x3 Assessment and Plan Assessment & Plan (1) Hypertension: Code(s): I10 - Essential (primary) hypertension Plan: Patient declines to use lisinopril. Amlodipine added to the regimen. (2) Upper back pain: Code(s): M54.9 - Dorsalgia, unspecified Plan: Apparently he has already spoken to the orthopedic surgeon who but the simulator for the lower back. He has not eligible for any intervention for the upper back. Patient also takes Eliquis and has an increased risk of bleeding along with NSAIDs. Meloxicam will be used for 7 days along with cyclobenzaprine. Patient understands the increased risk of bleeding. Medications: Refilled cyclobenzaprine 10 mg PO BEDTIME 14 tabs 0RF Coding Level of Care Code Est Pt Level 4 (94333) Diagnoses Hypertension I10 Upper back pain M54.9
[2023-11-22 08:32] VITALS: BP 120/80; PULSE 74; O2SAT 99; BMI 27.7
== END 2023-11-22 11:43 | disposition home or self-care (01) ==
PROVIDERS: PCP Internal Medicine; Visit Provider Internal Medicine
DX: I10 Essential (primary) hypertension (principal); M54.9 Dorsalgia, unspecified
CPT/HCPCS: 99214

== ENCOUNTER 2024-06-13 08:38 | Outpatient (AMB) | payer OTHER, SELFPAY ==
--- NOTE | 2024-06-13 08:52 | MHC.PC.OV ---
Vital Signs 06/13/24 08:53 Height 6 ft Weight 198 lb 6 oz BMI 26.9 BP 100/60 Blood Pressure Location Rt brachial Position Sitting Pulse 77 Pulse Source Pulse Oximeter Pulse Oximetry (%) 100 Oxygen Delivery Method Room Air Intake Visit Reasons: 3 month f/u Intake Note: Patient is here to follow up on DM, HLD. HTN. Barrel Straightener Required: No Art Consultant: Present Accompanied by: Spouse Allergies No Known Allergies [No Known Allergies*] Allergy (Verified 06/13/24 09:31) Medication List - Last Reconciled 06/13/24 by Dolores Haque PA-C acetaminophen ER (Tylenol Arthritis Pain) 650 mg PO Q12H PRN apixaban (Eliquis) 5 mg PO BID atorvastatin 40 mg PO DAILY blood sugar diagnostic ([employer] Ultra Test strips) Check Blood sugar Daily blood-glucose meter ([employer] Ultra2 Meter) As directed cholecalciferol (vitamin D3) 1,250 mcg PO QWEEK cholecalciferol (vitamin D3) 25 mcg PO DAILY cyclobenzaprine 10 mg PO Q8H hydrochlorothiazide 50 mg PO DAILY lancets ([employer] UltraSoft 2 Lancet) Once Daily lidocaine 5% (Lidoderm) 1 patch topical DAILY losartan 50 mg PO DAILY metformin 500 mg PO DAILY mirtazapine 15 mg PO BEDTIME omeprazole 20 mg PO DAILY trazodone 200 mg PO BEDTIME PRN Tobacco use date assessed: 06/13/24 Dental Screening Dental Screen Date: 08/29/23 [facility] Medical History (Updated 06/13/24 @ 09:33 by Dolores Haque PA-C) Diabetes [employer] current use of anticoagulant Colon adenomas Hepatic steatosis Arthritis DVT (deep venous thrombosis) Surgical History (Updated 06/13/24 @ 09:34 by Dolores Haque PA-C) History of colonoscopy (11/01/23) History of surgery on arm Previous back surgery Social History Housing: House Alcohol intake: never Patient Tobacco Use Status: Current everyday Tobacco user Tobacco use type: Cigarette Cigarette Packs Per Day: 0.5 Cigarettes Per Day: 10.0 e-Cigarette/Vaping Use: Never Used Second Hand Smoke Exposure: Yes service: No Current occupational status: unemployed Cognitive needs: No Hearing needs: No Vision needs: No Questionnaire Thrive Questionnaire Date Thrive assessed: 08/29/23 JR-7 AMB Questionnaire JR-7 Date JR - 7 assessed: 08/29/23 Source: Developed by Drs. Rupesh Franklin, Malu Wilkes, Tim Nieto and colleagues, with an educational doe from [employer]. Physical exam (Primary Care) Vital Signs: Last Vital Signs Pulse 77 06/13/24 08:53 BP 100/60 06/13/24 08:53 Pulse Ox 100 06/13/24 08:53 Oxygen Delivery Method Room Air 06/13/24 08:53 BMI result Body Mass Index 26.9 Tobacco/Smoking Status: Tobacco use Status Tobacco use date assessed 06/13/24 06/13/24 09:02 Patient Tobacco Use Status Current everyday Tobacco 06/13/24 09:02 Tobacco use type Cigarette 06/13/24 09:02 e-Cigarette/Vaping Use Never Used 06/13/24 09:02 Thrive Assessment: Date of Thrive Assessment Date Thrive assessed 08/29/23 06/13/24 09:02 Results AMB Hemoglobin A1c AMB Hemoglobin A1c 5.5 % Last Edit by EKTA Cortes on 06/13/24 09:11 Results Reviewed Results Reviewed: Laboratory Last Values Hgb A1c (Clinic) 5.5 % (4.0-6.0) 06/13/24 08:51 Coding Level of Care Code Est Pt Level 4 (56752) Complex EM visit Add On G2211 Diagnoses Type 2 diabetes mellitus E11.9 Hyperlipidemia E78.5 Hypertension I10 DVT (deep venous thrombosis) I82.409 Chronic back pain M54.9; G89.29 Assessment & Plan Assessment & Plan (1) Type 2 diabetes mellitus: Code(s): E11.9 - Type 2 diabetes mellitus without complications Category: Medical (2) Hyperlipidemia: Code(s): E78.5 - Hyperlipidemia, unspecified Category: Medical (3) Hypertension: Code(s): I10 - Essential (primary) hypertension Category: Medical (4) DVT (deep venous thrombosis): Comment: Left leg; 2 years ago Code(s): I82.409 - Acute embolism and thrombosis of unspecified deep veins of unspecified lower extremity Category: Medical (5) Chronic back pain: Code(s): M54.9 - Dorsalgia, unspecified; G89.29 - Other chronic pain Category: Medical Plan Plan - Continue back pain management with extra-strength arthritis Tylenol 650 mg and 10 mg of Flexeril every 8 hours. - Initiate lidocaine dermal patches for local application to painful areas. - Referral to hematology to reassess the necessity of continued anticoagulation therapy with Eliquis for DVT management. - Prescriptions sent for Tylenol extra strength arthritis, muscle relaxant, and lidoderm patches. - Continue monitoring cholesterol levels with atorvastatin. - Continue diabetes management with metformin - Continue hypertensive control with hydrochlorothiazide Orders: Orders AMB Hemoglobin A1c Today Delmer Crabtree MD E11.9 - Type 2 diabetes mellitus without complications Medications: New cyclobenzaprine 10 mg PO Q8H 90 tabs 3RF muscle spasm/back pain Dolores Haque PA-C lidocaine 5% (Lidoderm) leave on most painful area for up to 12 hrs then remove after 12 hours and replaced after you have left off for 12 hours 1 patch topical DAILY [address] on affected painful Dolores Haque PA-C acetaminophen ER (Tylenol Arthritis Pain) 650 mg PO Q12H PRN 60 tabs 3RF pain Dolores Haque PA-C Discontinued cyclobenzaprine Discontinued Reason: Duplicate 10 mg PO BEDTIME 14 tabs 0RF Patient Instructions: Patient Instructions - Apply the lidocaine patches as directed to manage localized back pain. - Take tylenol and Flexeril as prescribed for pain control and muscle relaxation. - Await communication regarding the hematology referral and further instructions. - Adhere to the atorvastatin regimen to manage cholesterol levels. - Adhere to the metformin regimen to manage diabetes - Adhere to the HCTZ regimen to manage HTN - Contact the clinic with any new or worsening symptoms. Scribe Plan - Not visible on output: History of Present Illness The patient is a 54-year-old male presenting with for 3 month follow up. He would Like to discuss treatment options for his hx of chronic back pain. The back pain has persisted and intensified over time. The patient has a back stimulator device previously placed, which has been modified at [facility]. The initial placement of the device led to significant arthritis development at the site of insertion and considerable pain. The patient notes experiencing cramping in the hands previously, but this has resolved. No medications have effectively alleviated the back pain. Other medications include Eliquis, presumptively prescribed for lifelong management of deep vein thrombosis diagnosed approximately 3-4 years prior, with no recent hematologic consultation for follow-up. The patient reports taking atorvastatin for hypercholesterolemia, Hydrochlorothiazide for hypertension, metformin for his diabetes, trazodone for sleep, omeprazole for GERD, compliance with medications noted. Social History - Language: Primarily Czech-speaking with limited Angolan proficiency. - Housing: Mention of obtaining certain medical equipment from other households. - Functional status: Significant back pain limits activities such as sitting comfortably. Review of Systems - Musculoskeletal: Reports persistent back pain, denies current hand cramps. - Gastrointestinal: Denies any issues nausea, vomiting, diarrhea, hematuria, black or bloody stools, unintentional unexplained weight loss. - General: Denies flu vaccination due to personal preference. Physical Exam Appearance: Alert. Oriented X3. No acute distress. Head: Normal external exam. Normocephalic. Atraumatic. Eyes: Pupils are equal, round, and reactive to light. Extraocular movements intact. Conjunctiva and sclera normal. Eyelids normal. Throat: Pharynx normal. Uvula midline. Moist mucous membranes. Neck: Normal inspection. Neck supple. Full range of motion. No meningeal signs. Cardiovascular: Normal heart rate and rhythm. Respiratory: No respiratory distress. Painless inspiration. Back: No costovertebral angle tenderness. Full range of motion noted. Patient reports back pain and does not like to sit. mild tenderness to mid thoracic spine overlying patient's surgical scar. There is no fluctuance, induration, erythema or signs of foreign body. Patient has a normal steady gait. Good range of motion. Skin: Skin warm and dry. Normal skin color. Normal skin turgor. No rashes/lesions/lacerations noted. Extremities: Extremities exhibit normal range of motion. Extremities nontender. Neuro: Oriented X 3. No motor deficit. No sensory deficit. Reflexes normal. Results - A1c level today 5.5. - Patient had a colonoscopy on 11/01/[address] Beal and recommended repeat in 6-12 months due to poor prep Plan - Continue back pain management with extra-strength arthritis Tylenol 650 mg and 10 mg of Flexeril every 8 hours. - Initiate lidocaine dermal patches for local application to painful areas. - Referral to hematology to reassess the necessity of continued anticoagulation therapy with Eliquis for DVT management. - Prescriptions sent for Tylenol extra strength arthritis, muscle relaxant, and lidoderm patches. - Continue monitoring cholesterol levels with atorvastatin. - continue diabetes management with metformin - continue hypertensive control with hydrochlorothiazide Patient was informed and verbally consented to the use of an ambient scribe for clinic note documentation during this visit. Discussion Notes I discussed with the patient the management strategies for chronic back pain, including pharmacologic intervention and the use of lidoderm patches for pain relief. We explored the planned hematology referral to evaluate the ongoing need for Eliquis for his historical DVT, acknowledging his understanding that prolonged anticoagulation may be reassessed. I clarified the treatment plan and answered the patient's inquiries regarding the management choices. The patient consented to the proposed treatment and agreed to the follow-up plan.
[2024-06-13 08:53] VITALS: BP 100/60; PULSE 77; O2SAT 100; BMI 26.9
== END 2024-06-13 09:24 | disposition home or self-care (01) ==
PROVIDERS: PCP Internal Medicine; Visit Provider Internal Medicine
DX: E11.9 Type 2 diabetes mellitus without complications (principal); E78.5 Hyperlipidemia, unspecified; I10 Essential (primary) hypertension; I82.409 Acute embolism and thrombosis of unspecified deep veins of unspecified lower extremity; M54.9 Dorsalgia, unspecified; G89.29 Other chronic pain

== ENCOUNTER → 2024-06-13 08:38 | Outpatient (BNVA) | payer OTHER, SELFPAY | PROVIDERS: PCP Internal Medicine; Visit Provider Internal Medicine | DX: E11.9 Type 2 diabetes mellitus without complications (principal); E78.5 Hyperlipidemia, unspecified; I10 Essential (primary) hypertension; M54.9 Dorsalgia, unspecified; G89.29 Other chronic pain; Z86.718 Personal history of other venous thrombosis and embolism | CPT/HCPCS: 83036; 99212 ==

== ENCOUNTER 2024-07-04 11:58 | Outpatient (REF) | payer OTHER, SELFPAY ==
--- NOTE | ~2024-07-04 | US_ITS ---
EXAMINATION: US TRIPLEX LOWER EXTREMITY, BILATERAL CLINICAL INFORMATION: Chronic DVT right popliteal vein. COMPARISON: Ultrasound venous Doppler exam dated February 24, 2021. TECHNIQUE: Color-flow triplex imaging with spectral analysis and compression Doppler were performed on the bilateral lower extremities. FINDINGS: Respiratory variation, normal compression and augmented flow are noted throughout the bilateral lower extremities. The visualized common femoral vein, superficial femoral vein, profunda femoral vein, popliteal vein and midcalf peroneal and posterior tibial venous segments show no evidence of acute deep venous thrombosis bilaterally. There is an intraluminal isoechoic abnormality within the right popliteal vein with partial compressibility and partial augmentation. There is no Salazar's cyst. US/US venous duplex LE BI IMPRESSION: Old/chronic nonocclusive thrombus, right popliteal vein. Persistent. No acute deep venous thrombosis in the interrogated veins left lower extremity. . Electronically signed by: Yuri Herring MD 07/04/2024 03:01 PM [facility]
== END 2024-07-04 11:59 | disposition home or self-care (01) ==
LOC: HO.US 11:58
PROVIDERS: PCP Internal Medicine; Visit Provider Physician Assistant Medical
DX: Z86.718 Personal history of other venous thrombosis and embolism (principal)
CPT/HCPCS: 93970

== ENCOUNTER → 2024-07-04 12:00 | Outpatient (BNV) | payer OTHER, SELFPAY | PROVIDERS: PCP Internal Medicine; Visit Provider Radiology Diagnostic Radiology | DX: I82.531 Chronic embolism and thrombosis of right popliteal vein (principal) | CPT/HCPCS: 93970 ==

== ENCOUNTER → 2024-08-19 10:16 | Outpatient (BNV) | payer OTHER, SELFPAY | PROVIDERS: PCP Internal Medicine; Visit Provider Internal Medicine | DX: I82.431 Acute embolism and thrombosis of right popliteal vein (principal) | CPT/HCPCS: 99204; G2211 ==

== ENCOUNTER 2024-10-24 13:59 | Outpatient (REF) | payer OTHER, SELFPAY ==
[2024-10-24 15:31] LABS: Hematocrit 39.9 % (42.0-52.0); Hemoglobin 14.3 g/dl (14.0-18.0); Mean Corpuscular HGB Conc 35.8 g/dl (31.0-36.0); Mean Corpuscular Hemoglobin 32.1 pg (27.0-33.0); Mean Corpuscular Volume 89.5 fL (80.0-98.0); Mean Platelet Volume 9.4 fL (9.4-12.4); Platelet Count 233 X10*3/uL (160-400); Red Blood Count 4.46 X10*6/uL (4.60-5.80); Red Cell Distribution Width 12.5 % (11.0-16.0); White Blood Count 8.6 X10*3/uL (4.8-10.8)
--- OUTSIDE RECORDS SUMMARY | 2024-10-24 15:39 | XMS_ITS | Clinical Summary ---
Author Organization [employer] Address [address] [place] [address] [address] [place] [address] Care Team Providers Care Dip Brazier Name Role Phone Unavailable Primary Care Provider [...] age to complete this topic Insurance [facility]
[2024-10-24 16:10] LABS: Erythrocyte Sedimentation Rate 7 MM/HR (0-15)
[2024-10-24 16:29] LABS: Alanine Aminotransferase 50 U/L (0-40); Albumin Level 4.4 g/dL (3.5-5.0); Alkaline Phosphatase 93 U/L (39-117); Anion Gap 11 (12-20); Aspartate Amino Transferase 51 U/L (5-37); Bilirubin Direct 0.1 mg/dL (0.0-0.5); Bilirubin Total 0.4 mg/dL (0.0-1.0); Blood Urea Nitrogen 27 mg/dL (9-16); Calcium 9.8 mg/dL (8.4-10.2); Carbon Dioxide 28 mmol/L (22-29); Chloride 103 mmol/L (96-108); Cholesterol 145 mg/dL (<200); Estimated Glomerular Filt Rate > 60; Glucose Random 77 mg/dL (60-115); HDL Cholesterol 34 mg/dL (>40); LDL Cholesterol Calculated 84 mg/dL (<100); Potassium 4.1 mmol/L (3.3-5.1); Sodium 138 mmol/L (135-145); Total Protein 7.4 g/dL (6.5-8.0); Triglycerides 138 mg/dL (<150)
[2024-10-24 16:34] LABS: Thyroid Stimulating Hormone 1.03 uIU/mL (0.32-4.0)
== END 2024-10-24 14:00 | disposition home or self-care (01) ==
LOC: HO.LAB 13:59
PROVIDERS: PCP Internal Medicine; Visit Provider Internal Medicine
DX: I10 Essential (primary) hypertension (principal); M54.9 Dorsalgia, unspecified; G89.29 Other chronic pain; E11.9 Type 2 diabetes mellitus without complications
CPT/HCPCS: 36415; 80048; 80061; 80076; 83036; 84443; 85027; 85652; 96127; 99212

== ENCOUNTER 2024-10-24 13:59 | Outpatient (AMB) | payer OTHER, SELFPAY ==
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
[2024-10-24 14:17] VITALS: BP 130/70; PULSE 77; TEMP 36.3; O2SAT 98; BMI 26.8
--- OUTSIDE RECORDS SUMMARY | 2024-10-24 14:55 | XMS_ITS | Data Portability ---
Author Organization [facility], , [facility] Address [address] [place] [address] Assessment Encounter Date Assessment Date Assessment LastModified by Organization Details LastModified Time 08/31/2021 08/31/2021 Patient agreed t o this visit via a secure telehealth platform due to the COVID -19 pandemic. Patient understands this is a scheduled visit and the usual procedures with regard to billing and confidentiality apply. Patient was notified that the provider location is [facility] Patient location: home During the visit the patient? s medical history and medical record were reviewed. The patient was notified to call our office for worsening or urgent symptoms. Not available 08/31/2021 11:01:44 Plan of Treatment Reminders Order Date Submit Date Provider Last Modified By Organization Details Last Modified Time Details Appointments None recorded . Lab hepatiti s C virus Ab, serum 2021 [facility], [address] [place], [address], 04:56:25 Referral sleep medicine referral 2021 [email or web address], [address] [facility] [address], [place], [address], 10:38:13 pain manageme nt referral - back pain, NOT FOR MEDICATI ON MANAGEME NT 2021 [email or web address] [facility], [address] [facility], [facility] [address], [place], [address], 12:44:43 Procedures None recorded . Surgeries None recorded . Imaging home sleep study 2021 [email or web address] [facility], [address] [facility], [place], [address], 2 16:13:55 XR, thoracic spine 2021 [facility] (Imaging), [address] [place], [address], 18:00:00 Medication Orders Nicotrol 10 mg inhalati on cartridg e [address]/Pharmacy #2071, [address] [place], [address], 4 12:34:22 nicotine (polacri alea) 4 mg buccal lozenge [address]/Pharmacy #2071, [address] [place], [address], 4 12:34:17 trazodon e 100 mg tablet 2021 [email or web address] [facility]/Pharmacy #2071, [address] [place], [address], 4 15:56:49 atorvast atin 20 mg tablet [address]/Pharmacy #2071, [address] [place], [address], 4 12:33:31 trazodon e 50 mg tablet [address]/Pharmacy #2071, [address] [place], [address], 4 12:34:44 lidocain e 5 % topical patch [address]/Pharmacy #2071, [address] [place], [address], 4 12:33:59 hydrochl orothiaz nilton 50 mg tablet 2021 022 [email or web address] [facility]/Pharmacy #2071, [address] [place], [address], 4 12:33:52 gabapent in 300 mg capsule 2021 022 [email or web address] [facility]/Pharmacy #2071, [address] [place], [address], 4 12:33:45 hydrochl orothiaz nilton 25 mg tablet 2021 022 [email or web address] [facility]/Pharmacy #2071, [address] [place], [address], 15:17:40 Patient TargetsNo targets recorded. Patient Instructions Encounter Date Encounter Id Patient Instructions Last Modified By Organization Details Last Modified Time 11/02/2021 [id number] CCM: The provide r and patient discussed the Chronic Care Management program, including the services provided, and any fees associated with them. [email or web address] Not available 11/02/2021 15:19:50 05/09/2022 [id number] Well Visit 50 to 65: Care Instructions [email or web address] Not available 05/09/2022 09:50:15 06/03/2022 [id number] deciding about using medicines to quit smoking [email or web address] Not available 06/03/2022 11:19:26 Quitting Tobacco : Care Instructions [email or web address] Not available 06/03/2022 11:19:26 After a discussion of treatment options, which included consideration of best practices, patient preferences, and the patient? s individual lifestyle and treatment goals, as well as consideration and attempted mitigation of any barriers to meeting the patient? s goals, the following treatment plan and objectives were adopted: as above [email or web address] Not available 06/03/2022 11:33:55 Counseling done {{Patient not ready to quit Contemplatin g quitting Tapering Cigarettes signed up for support prescript ion for stop smoking medication given*}} {{Patient not ready to quit Contemplatin g quitting Tapering Cigarettes signed up for support prescript ion for stop smoking medication given}} Goal for follow up visit {{adding exercise regular meals stress management improv ing sleep therapist [facility]}} {{adding exercise regular meals stress management improv ing sleep therapist [facility]}} {{adding exercise regular meals stress management improv ing sleep therapist [facility]}} My Health To Do List {{go to Bizible or call si gn up for bettina text 2 quit or other stop smoking bettina contact Bizible}} {{go to Bizible or call si gn up for bettina text 2 quit or other stop smoking bettina contact Bizible}} {{go to Bizible or call si gn up for bettina text 2 quit or other stop smoking bettina contact Bizible}} [email or web address] Not available 06/03/2022 11:32:01 Reason for Referral Pain Management Referral for Chronic back pain back pain, NOT FOR MEDICATION MANAGEMENT Referring Physician: Danni Causey, Family Medicine, Encounter Date: 11/02/2021 Sleep Medicine Referral for Snoring Referring Physician: Danni Causey Family Medicine, Encounter Date: 05/09/2022 Results Created Date Observation Date Name Description Value Unit Range Abnormal Flag Note LastModifiedBy Organization Detail LastModifiedTime 05/02/20 22 05/02/2022 CBC WBC 7.98 K/? ? ?L 4.23-9 .07 Not Available [address], [address], 05/02/2022 10:57:58 05/02/20 22 05/02/2022 CBC RBC 5.36 M/? ? ?L 4.63-6 .08 Not Available [address], [address], 05/02/2022 10:57:58 05/02/20 22 05/02/2022 CBC HGB 17.3 g/dL 13.7-1 7.5 Not Available [address], [address], 05/02/2022 10:57:58 05/02/20 22 05/02/2022 CBC HCT 49.1 % 40.1-5 1.0 Not Available [address], [address], 05/02/2022 10:57:58 05/02/20 22 05/02/2022 CBC MCV 91.6 fL 79.0-9 2.2 Not Available [address], [address], 05/02/2022 10:57:58 05/02/20 22 05/02/2022 CBC MCH 32.3 pg 25.7-3 2.2 high Not Available [address], [address], 05/02/2022 10:57:58 05/02/20 22 05/02/2022 CBC MCHC 35.2 g/dL 32.3-3 6.5 Not Available [address], [address], 05/02/2022 10:57:58 05/02/20 22 05/02/2022 CBC plt 247 K/? ? ?L 163-33 7 Not Available [address], [address], 05/02/2022 10:57:58 05/02/20 22 05/02/2022 CBC MPV 10.4 fL 9.4-12 .4 Not Available [address], [address], 05/02/2022 10:57:58 05/02/20 22 05/02/2022 CBC neut% 59.1 % 34.0-6 7.9 Not Available [address], [address], 05/02/2022 10:57:58 05/02/20 22 05/02/2022 CBC neut# 4.72 1.78-5 .38 Not Available [address], [address], 05/02/2022 10:57:58 05/02/20 22 05/02/2022 CBC lymph % 30.8 % 21.8-5 3.1 Not Available [address], [address], 05/02/2022 10:57:58 05/02/20 22 05/02/2022 CBC lymph # 2.46 K/? ? ?L 1.32-3 .57 Not Available [address], [address], 05/02/2022 10:57:58 05/02/20 22 05/02/2022 CBC mono% 7.5 % 5.3-12 .2 Not Available [address], [address], 05/02/2022 10:57:58 05/02/20 22 05/02/2022 CBC mono# 0.60 0.30-0 .82 Not Available [address], [address], 05/02/2022 10:57:58 05/02/20 22 05/02/2022 CBC eo% 1.8 % 0.8-7. 0 Not Available [address], [address], 05/02/2022 10:57:58 05/02/20 22 05/02/2022 CBC eo# 0.14 0.04-0 .54 Not Available [address], [address], 05/02/2022 10:57:58 05/02/20 22 05/02/2022 CBC baso% 0.5 % 0.2-1. 2 Not Available [address], [address], 05/02/2022 10:57:58 05/02/20 22 05/02/2022 CBC baso# 0.04 0.00-0 .08 Not Available [address], [address], 05/02/2022 10:57:58 05/02/20 22 05/02/2022 CBC RDW-CV 11.9 % 11.6-1 4.4 Not Available [address], [address], 05/02/2022 10:57:58 05/02/20 22 05/02/2022 CBC Ig% 0.300 % 0.000- 1.500 Ig % >0.5 Indic ates possi ble Left Shift Not Available [address], [address], 05/02/2022 10:57:58 05/02/20 22 05/02/2022 CBC Ig# 0.020 0.000- 0.093 Not Available [address], [address], 05/02/2022 10:57:58 05/02/20 22 05/02/2022 CBC NRBC% 0.0 % 0.0-0. 2 Not Available [address], [address], 05/02/2022 10:57:58 05/02/20 22 05/02/2022 CBC NRBC# 0.000 0.000- 0.012 Not Available [address], [address], 05/02/2022 10:57:58 05/02/20 22 05/02/2022 COMP. METAB OLIC PANEL glucose 167 mg/dL 70-100 high Not Available [address], [address], 05/02/2022 16:10:12 05/02/20 22 05/02/2022 COMP. METAB OLIC PANEL BUN 17 mg/dL 7-18 Not Available [address], [address], 05/02/2022 16:10:12 05/02/20 22 05/02/2022 COMP. METAB OLIC PANEL creatinine 1.3 mg/dL 0.8-1. 3 Not Available [address], [address], 05/02/2022 16:10:12 05/02/20 22 05/02/2022 COMP. METAB OLIC PANEL B/C 13.1 ratio Not Available [address], [address], 05/02/2022 16:10:12 05/02/20 22 05/02/2022 COMP. METAB OLIC PANEL GFR >=60ML /MIN mL/mi n normal >=60m L/min - Sheila l or midly reduc ed <60mL /min- Decre ased kidne y funct ion <15mL /min - Kidne y failu re [facility] calcu lates estim ated Glome rular Filtr ation Rate (eGFR ) using the Chron ic Kidne y Disea se Epide miolo gy Colla borat ion (CKD- EPI) Equat ion (Skyla r et. al 2020) as recom suni d by the Natio nal Kidne y Found ation . eGFR is based on age, serum creat inine , and sex. CKD-E PI does not calcu late eGFR by race, does not apply to child kim (age <18 years ), and shoul d not be used in pregn dejah. Not Available [address], [address], 05/02/2022 16:10:12 05/02/20 22 05/02/2022 COMP. METAB OLIC PANEL sodium 140 mmol/ L 136-14 5 Not Available [address], [address], 05/02/2022 16:10:12 05/02/20 22 05/02/2022 COMP. METAB OLIC PANEL potassium 4.8 mmol/ L 3.5-5. 1 Not Available [address], [address], 05/02/2022 16:10:12 05/02/20 22 05/02/2022 COMP. METAB OLIC PANEL chloride 101 mmol/ L 96-107 Not Available [address], [address], 05/02/2022 16:10:12 05/02/20 22 05/02/2022 COMP. METAB OLIC PANEL anion gap 10.1 5.0-15 .0 Not Available [address], [address], 05/02/2022 16:10:12 05/02/20 22 05/02/2022 COMP. METAB OLIC PANEL CO2 29 mmol/ L 21-32 Not Available [address], [address], 05/02/2022 16:10:12 05/02/20 22 05/02/2022 COMP. METAB OLIC PANEL calcium 9.7 mg/dL 8.5-10 .3 Not Available [address], [address], 05/02/2022 16:10:12 05/02/20 22 05/02/2022 COMP. METAB OLIC PANEL total protein 7.7 g/dL 6.4-8. 2 Not Available [address], [address], 05/02/2022 16:10:12 05/02/20 22 05/02/2022 COMP. METAB OLIC PANEL albumin 3.8 g/dL 3.4-5. 0 Not Available [address], [address], 05/02/2022 16:10:12 05/02/20 22 05/02/2022 COMP. METAB OLIC PANEL globulin 3.9 g/dL Not Available [address], [address], 05/02/2022 16:10:12 05/02/20 22 05/02/2022 COMP. METAB OLIC PANEL A/G 1.0 ratio 0.8-2. 0 Not Available [address], [address], 05/02/2022 16:10:12 05/02/20 22 05/02/2022 COMP. METAB OLIC PANEL total bilirubin 0.40 mg/dL 0.00-1 .00 Not Available [address], [address], 05/02/2022 16:10:12 05/02/20 22 05/02/2022 COMP. METAB OLIC PANEL AST 24 U/L 0-37 Not Available [address], [address], 05/02/2022 16:10:12 05/02/20 22 05/02/2022 COMP. METAB OLIC PANEL ALT 62 U/L 6-63 Not Available [address], [address], 05/02/2022 16:10:12 05/02/20 22 05/02/2022 COMP. METAB OLIC PANEL alk. phos. 133 U/L 50-136 Not Available [address], [address], 05/02/2022 16:10:12 05/02/20 22 05/02/2022 LIPID PANEL cholesterol 307 mg/dL <200 mg/dl Brittani able 200-2 39 mg/dl Borde rline High >240 mg/dl High Not Available [address], [address], 05/02/2022 16:10:13 05/02/20 22 05/02/2022 LIPID PANEL triglyceride s 504 mg/dL high LIPS= Speci men Sligh tly Lipem ic. Chem Resul ts may be effec arnaud. <150 mg/dL Sheila l 150-1 99 mg/dL Borde rline High 200-4 99 mg/dL High >500 mg/dL Very High Not Available [address], [address], 05/02/2022 16:10:13 05/02/20 22 05/02/2022 LIPID PANEL direct HDL 35 mg/dL <40 mg/dl - Major Risk for CHD >60 mg/dl - Negat colby Risk for CHD Not Available [address], [address], 05/02/2022 16:10:13 05/02/20 22 05/02/2022 DIREC T LDL direct LDL 174 mg/dL RISK CATEG ORY LDL GOAL _ CHD or CHD Risk Equiv alent s <100 mg/dl (10-y ear risk >20%) 2+ Risk Facto rs <130 mg/dl (10-y ear risk <= 20%) 0-1 Risk Facto r? <160 mg/dl ? Almos t all peopl e with 0-1 risk facto r have a 10 year risk <10%, thus 10 year risk asses ment in peopl e with 0-1 risk facto r is not neces phyllis. Not Available [address], [address], 05/02/2022 16:10:14 05/02/20 22 05/04/2022 HEPAT ITIS C AB W/REF L TO HCV RNA, QN, PCR hepatitis C antibody NON-RE ACTIVE non-re active normal Not Available [facility] [place] [facility] [address], [place], [address], 05/04/2022 04:56:25 05/02/20 22 05/04/2022 HEPAT ITIS C AB W/REF L TO HCV RNA, QN, PCR index 0.06 <1.00 normal HCV antib shanice was non-r eacti ve. There is no labor atory evide nce of HCV infec tion. In most cases , no furth er actio n is requi red. Howev er, if recen t HCV expos ure is suspe cted, a test for HCV RNA (test code 04146 ) is sugreddy schuster. For addit ional infor agustín n pleas e refer to http: //[facility] [employer].que stdia gnost ics.c om/fa q/FAQ 22v1 (This link is being provi ded for infor matneil nal/ educa usha l purpo ses only. ) Not Available [facility] [place] [facility] [address], [place], [address], 05/04/2022 04:56:25 11/03/1911/02/2021 XR, thora cic spine CLINIC AL HISTOR Y: Chroni c back pain. TECHNI QUE: AP and latera l views of the thorac ic spine obtain ed. COMPAR ANABEL: None. FINDIN GS: Leads from a spinal stimul ator are presen t in the lower thorac ic appear ing to termin ate at the T8 level. Verteb ral body alignm ent is within physio logic limits . There is no signif icant degene rative change . There is no fractu re. IMPRES ANDER: 1. No signif icant degene rative change . 2. No acute bone abnorm ality. Doni leroy Physic elias: Jony Junior ms [facility] (Imaging) [address], [place], [address], 11/19/2021 09:19:29 Result Notes None recorded. Problems Name Problem SNOMED Code Status Onset Date Resolution Date Notes Provider Name and Address Organization Details Recorded Time Hearing loss 66339922 Active Not Available [facility] 3 03:15:40 Pain of elbow region 78145042 Completed 05/08/2013 Not Available [employer] 3 02:03:27 Chronic pain 87194078 Active Benito Simon MD [address] [place] [address], [address] , [facility] 5 10:45:36 Hypertrigl yceridemia 710044130 Active Heike Lo [facility], [facility] 6 16:08:06 Pain of elbow region 26068925 Active Elvie Patton [facility], [facility] 4 13:28:56 Tobacco dependence syndrome 15651382 Active Benito Simon MD [address] [place] [address], [address] , [facility] 4 10:01:53 Deep venous thrombosis 444638496 Active 2020 Macarena Amaya LPN [facility] 11:31:13 Problem Notes None recorded. Procedures Surgical History Date Name Laterality Status Provider Name and Address Organization Details Recorded Time 06/03/20 Smoking cessation counseling completed DEMOND Smallwood [address] [place] [address], [phone], [facility] 06/03/2022 11:32:05 05/09/20 22 Medicare Wellness Visit completed [facility] 05/09/2022 09:22:01 05/09/20 22 Alcohol use screening completed [facility] 05/09/2022 09:22:01 05/09/20 22 Cardiovascular disease risk reduction counseling completed Carolyn [facility] 05/09/2022 09:22:01 07/30/19 22 Smoking cessation counseling completed DEMOND Smallwood [address] [place] [address], [phone], [facility] 07/30/2021 10:02:26 05/20/20 21 Smoking cessation counseling completed Teresa Cowan OD [address] [place], [address], [facility] 05/20/2021 11:01:06 05/20/20 21 Refraction completed Teresa Cowan OD [address] [place], [address], [facility] 05/20/2021 10:59:55 05/06/20 21 Smoking cessation counseling completed Charlotte Zacarias [facility] 05/06/2021 09:25:51 05/06/20 21 Alcohol use screening completed Charlotte Zacarias [facility] 05/06/2021 08:47:46 05/06/20 21 Cardiovascular disease risk reduction counseling completed Charlotte Zacarias [facility] 05/06/2021 08:47:46 05/06/20 21 Medicare Annual Wellness Visit completed Charlotte Zacarias [facility] 05/06/2021 08:47:46 02/19/20 21 Smoking cessation counseling completed Lilo Llanes [facility] 02/17/2021 19:47:50 12/19/19 21 Post hospital/SNF follow-up/Transit ional Care completed Mohinder Ross [facility] 12/18/2020 11:41:38 04/01/20 20 Smoking cessation counseling completed Elvie Causey, MATTHIAS [address] [place] [address], [address], [facility] 04/01/2020 08:42:36 04/01/20 20 Telephonic Visit completed Tamra Soliz [facility] 04/01/2020 08:19:13 03/25/20 20 Smoking cessation counseling cancelled Tamra Soliz [facility] 03/25/2020 12:34:25 03/25/20 20 Carbon Monoxide Testing cancelled Tamra Soliz [facility] 03/25/2020 12:34:25 09/19/19 18 Smoking cessation counseling completed Teresa Cowan OD [address] [place], [address], [facility] 09/18/2017 11:44:34 09/19/19 18 Refraction completed Trice Berry [facility] 09/18/2017 11:05:08 07/11/19 18 Smoking cessation counseling completed Bita Leon LPN [facility] 07/11/2017 09:28:30 07/11/19 18 Carbon Monoxide Testing completed Bita Leon LPN [facility] 07/11/2017 09:30:07 06/09/20 17 Smoking cessation counseling completed Karey Gibbons [facility] 06/09/2017 08:59:33 06/09/20 17 Carbon Monoxide Testing completed Karey Gibbons [facility] 06/09/2017 08:59:33 04/04/20 16 Smoking cessation counseling completed Katarina Israel [place] [facility] 04/04/2016 14:08:44 04/04/20 16 Medicare Wellness Visit completed Katarina Israel MA [facility] 04/04/2016 14:04:11 04/04/20 16 Carbon Monoxide Testing completed Katarina Israel [facility] 04/04/2016 14:16:45 07/30/19 14 Medicare Wellness Visit completed Katarina Israel [facility] 07/30/2013 09:58:50 Imaging Results Imaging Date Name Status LastModified by Organiz ation Details LastModified Time 11/02/2021 XR, thoracic spine completed [facility] ([facility]) [address], [place], [address], 11/19/2021 09:19:29 Procedure Notes None recorded. Medical Equipment None Reported. Allergies No known drug allergies Medications Name Sig Start Date Stop Date Status Note LastModified by Organization Details LastModified Time cyclobenz aprine 10 mg tablet 05/09 completed 10/27/19 22- per pt. (? Directio n) Not Available Not Available Not Available amoxicill in 500 mg capsule TAKE 1 CAPSULE BY MOUTH THREE TIMES A DAY UNTIL FINISHED 12/11 completed Not Available Not Available Not Available metformin 500 mg tablet TAKE 1 TABLET BY MOUTH EVERY DAY 12/11 completed Not Available Not Available Not Available Augmentin 875 mg-125 mg tablet Take 1 tablet every 12 hours by oral route for 7 days. 07/11 completed Not Available Not Available Not Available bupropion HCl SR 150 mg tablet,12 hr sustained -release TAKE 1 TABLET TWICE DAILY active Not Available Not Available No t Available atorvasta tin 20 mg tablet TAKE 1 TABLET BY MOUTH EVERY DAY 12/11 completed Not Available Not Available Not Available trazodone 50 mg tablet TAKE 1 TABLET BY MOUTH EVERY DAY active Not Available Not Available No t Available ibuprofen 800 mg tablet 04/04 completed Not Available Not Available Not Available hydrochlo rothiazid e 50 mg tablet TAKE 1 TABLET BY MOUTH EVERY DAY *NEEDS APPOINTM ENT FOR FURTHER REFILLS* 12/11 completed Not Available Not Available Not Available prednison e 20 mg tablet Take 3 tablets every day by oral route for 5 days. 07/01 completed Not Available Not Available Not Available quetiapin e 200 mg tablet TAKE 1 TABLET AT BEDTIME 04/04 completed Not Available Not Available Not Available sulindac 150 mg tablet TAKE 1 TABLET BY MOUTH TWICE A DAY NEEDED FOR PAIN 12/11 completed not taking Not Available Not Available Not Available penicilli n V potassium 500 mg tablet 04/04 completed Not Available Not Available Not Available metronida zole 500 mg tablet 07/30 completed Not Available Not Available Not Available hydroxyzi ne HCl 50 mg tablet TAKE 1 TABLET BY MOUTH THREE TIMES A DAY NEEDED FOR 90 DAYS 12/11 completed Not Available Not Available Not Available sulfameth oxazole 800 mg-trimet hoprim 160 mg tablet 04/04 completed Not Available Not Available Not Available Nicotrol 10 mg inhalatio n cartridge 1 CARTRIDG E 15 MINS PRIOR TO USUAL CIGARETT E USE, MAY USE EVERY 1-2 HRS NEEDED 12/11 completed Not Available Not Available Not Available tramadol 50 mg tablet 09/06 completed Not Available Not Available Not Available acetamino phen 500 mg tablet TK 1 T PO Q 6 H PRN 08/16 completed Not Available Not Available Not Available oxycodone -acetamin ophen 5 mg-325 mg tablet TAKE 1 TABLET BY MOUTH EVERY 6 HOURS NEEDED FOR PAIN 12/11 completed Not Available Not Available Not Available Tessalon Perles 100 mg capsule Take 1 capsule 3 times a day by oral route as needed. 07/11 completed Not Available Not Available Not Available trazodone 100 mg tablet TAKE 1 TABLET BY MOUTH TWICE A DAY 12/05 completed Not Available Not Available Not Available OneTouch Ultra Test strips USE TO CHECK BLOOD SUGAR DAILY 12/11 completed Not Available Not Available Not Available cephalexi n 500 mg capsule 04/04 completed Not Available Not Available Not Available erythromy ayaz 5 mg/gram (0.5 %) eye ointment APPLY .5 INCH TO INNER ASPECT OF THE LOWER LID ON THE AFFECTED EYE EVERY 6 HOURS FOR 5 DAYS 06/09 completed 06/09/17 -pt states no longer taking.s g Not Available Not Available Not Available naproxen sodium 550 mg tablet 04/04 completed Not Available Not Available Not Available lidocaine 5 % topical patch APPLY 2 PATCHS BY TOPICAL ROUTE ONCE DAILY (MAY WEAR UP TO 12HOURS. ) 12/11 completed Not Available Not Available Not Available MS Contin 60 mg tablet,ex tended release Take 1 tablet every 12 hours by oral route for 28 days. 02/12 completed Not Available Not Available Not Available oxycodone 5 mg capsule Take 1 capsule 3 times a day by oral route as needed. 08/16 completed Not Available Not Available Not Available ibuprofen 400 mg tablet 04/04 completed Not Available Not Available Not Available nicotine 21 mg/24 hr daily transderm al patch PLACE 1 PATCH TO SKIN EVERY DAY IN THE MORNING 12/11 completed not taking Not Available Not Available Not Available Gas Relief Extra Strength 125 mg capsule Take 1 capsule 3 times a day by oral route as needed for 14 days. 08/31 completed otc not taking 07/30/21i e Not Available Not Available Not Available docusate sodium 100 mg capsule TAKE ONE CAPSULE TWICE A DAY NEEDED active Not Available Not Available No t Available gabapenti n 300 mg capsule TAKE 2 CAPSULES BY MOUTH TWICE A DAY 12/11 completed Not Available Not Available Not Available omeprazol e 20 mg capsule,d elayed release TAKE 1 CAPSULE BY MOUTH EVERY DAY 30 MINUTES BEFORE MORNING MEAL 12/11 completed Not Available Not Available Not Available morphine ER 15 mg tablet,ex tended release Take 1 tab po daily (03/20-) active Not Available Not Available No t Available lisinopri l 5 mg tablet TAKE 1 TABLET BY MOUTH EVERY DAY 12/11 completed Not Available Not Available Not Available hydrochlo rothiazid e 25 mg tablet TAKE 1 TABLET BY MOUTH EVERY DAY FOR 30 DAYS 11/02 completed 10/27/19 22- increase d, to 50 mg daily, per pt. Not Available Not Available Not Available mirtazapi ne 15 mg tablet TAKE 1 TABLET BY MOUTH EVERY DAY AT NIGHT 12/11 completed Not Available Not Available Not Available MS Contin 30 mg tablet,ex tended release Take 1 tablet every 8 hours by oral route for 10 days. 02/20 completed Not Available Not Available Not Available lorazepam 1 mg tablet TAKE 1 TABLET TWICE A DAY NEEDED 12/11 completed Not Available Not Available Not Available ibuprofen 600 mg tablet active Not Available Not Available Not Available levofloxa ayaz 500 mg tablet 07/30 completed Not Available Not Available Not Available morphine 15 mg immediate release tablet 08/16 completed P Not Available Not Available Not Available tobramyci n 0.3 %-dexamet hasone 0.1 % eye drops,shantanu pension INSTILL 1 DROP INTO RIGHT EYE FOUR TIMES A DAY 12/11 completed Not Available Not Available Not Available oxycodone 5 mg tablet TAKE 1 TABLET BY MOUTH EVERY 6 HOURS NEEDED FOR PAIN 09/06 completed Not Available Not Available Not Available Laxative (bisacody l) 5 mg tablet,de layed release PLEASE SEE ATTACHED FOR DETAILED DIRECTIO NS 12/11 completed Not Available Not Available Not Available nicotine (polacril ex) 4 mg buccal lozenge Take 1 tablet every 2 hours by oral route. 12/11 completed Not Available Not Available Not Available melatonin 1 mg tablet START WITH 1 TAB ORALLY 30 MINS BEFORE BED, MAY ADD 1 MG PER NIGHT UNTIL EFFECTIV E OR A MAX OF 10MG 12/11 completed not taking Not Available Not Available Not Available duloxetin e 30 mg capsule,d elayed release TAKE 1 CAPSULE BY MOUTH EVERY DAY IN THE EVENING 12/11 completed Not Available Not Available Not Available OneTouch UltraSoft Lancets USE DIRECTED EVERY DAY 12/11 completed Not Available Not Available Not Available Lyrica 75 mg capsule TAKE ONE CAPSULE BY MOUTH TWICE A DAY 02/18 completed does not take right now Not Available Not Available Not Available chlorhexi dine gluconate 0.12 % mouthwash RINSE MOUTH WITH 15ML (1 CAPFUL) FOR 30 SECONDS IN MORNING AND EVENING AFTER BRUSHING , THEN SPIT 12/11 completed Not Available Not Available Not Available multivita min one a dy active Not Available Not Available Not Available quetiapin e 50 mg tablet TAKE 1 TABLET BY MOUTH AT BEDTIME 02/18 completed not taking Not Available Not Available Not Available cholecalc iferol (vitamin D3) 25 mcg (1,000 unit) tablet TAKE 1 TABLET BY MOUTH EVERY DAY *NEEDS APPOINTM ENT FOR FURTHER REFILLS* 12/11 completed Not Available Not Available Not Available oxycodone 10 mg tablet Take 10mg po bid prn severe pain 04/04 completed Not Available Not Available Not Available diclofena c 1 % topical gel APPLY 2 GRAMS TWICE A DAY BY TOPICALL Y NEEDED FOR 30 DAYS. 05/09 completed Not Available Not Available Not Available Systane Ultra 0.4 %-0.3 % eye drops 1-2 drops into each eye up to 3 times per day for dry eyes 12/11 completed Not Available Not Available Not Available Gavilax 17 gram/dose oral powder PLEASE SEE ATTACHED FOR DETAILED DIRECTIO NS 12/11 completed Not Available Not Available Not Available HealthyLa x 17 gram oral powder packet MIX 1 PACKET WITH 8 OUNCES OF FLUID AND DRINK ORALLY ONCE A DAY 30 12/11 completed Not Available Not Available Not Available Chantix Starting Month Box 0.5 mg (11)-1 mg (42) tablets in dose pack Take by oral route as instruct ed on the starter pack 06/09 completed 06/09/17 -pt states no longer taking.s g Not Available Not Available Not Available lactulose 10 gram/15 mL (15 mL) oral solution Take 15 ML PO up to twice a day as needed for constipa tion 2012 active Not Available Not Available Not Avai lable Eliquis 5 mg tablet TAKE 1 TABLET BY MOUTH TWICE A DAY 12/11 completed Not Available Not Available Not Available nicotine (polacril ex) 4 mg buccal mini lozenge 12/11 completed Not Available Not Available Not Available Eliquis DVT-PE Treatment 30-Day Starter 5 mg (74 tablets) in dose pack USE DIRECTED PER PACKAGE DIRECTIO NS 03/15 completed 02/18/21 states out of medicati on - hasn't used in a month Not Available Not Available Not Available baclofen 5 mg tablet TAKE 1 TABLET BY MOUTH TWICE A DAY 12/11 completed Not Available Not Available Not Available OneTouch Ultra2 Meter USE DIRECTED 12/11 completed Not Available Not Available Not Available Flowflex COVID-19 Antigen Home Test kit USE DIRECTED 12/11 completed Not Available Not Available Not Available OneTouch UltraSoft 2 Lancet 30 gauge EVERY DAY 12/11 completed Not Available Not Available Not Available Vitals Date Recorded Body height Body mass index (BMI) Body weight Heart rate Systolic blood pressure Diastolic blood pressure Systolic blood pressure Diastolic blood pressure Systolic blood pressure Diastolic blood pressure Provider Name and Address Organization Details Last Updated DateTime 2 182.88 cm 30.7 kg/m2 351916. 88 g 84 /min 163 mm[Hg] 103 mm[Hg] 176 mm[Hg] 115 mm[Hg] 178 mm[Hg] 107 mm[Hg] Macarena Amaya LPN [facility] 2 10:47:59 Date Recorded Body height Body mass index (BMI) Body weight Systolic blood pressure Diastolic blood pressure Provider Name and Address Organization Details Last Updated DateTime 09/06/2021 182.88 cm 28.2 kg/m2 81742.21 g 140 mm[Hg] 82 mm[Hg] [facility] 2 09:39:29 Date Recorded Body height Body mass index (BMI) Body weight Systolic blood pressure Diastolic blood pressure Provider Name and Address Organization Details Last Updated DateTime 11/02/2021 182.88 cm 28.2 kg/m2 07111.21 g 122 mm[Hg] 88 mm[Hg] Carolyn [facility] 2 15:19:28 Date Recorded Body height Body mass index (BMI) Body weight Systolic blood pressure Diastolic blood pressure Provider Name and Address Organization Details Last Updated DateTime 05/09/2022 180.34 cm 31.2 kg/m2 552497.6 9 g 138 mm[Hg] 86 mm[Hg] Carolyn Rodriguezbebe [facility] 2 09:26:53 Date Recorded Body height Heart rate Body mass index (BMI) Body weight Systolic blood pressure Diastolic blood pressure Provider Name and Address Organization Details Last Updated DateTime 2 180.34 cm 72 /min 30.7 kg/m2 53079.7 2 g 136 mm[Hg] 88 mm[Hg] Prachi Contreras [facility] 10:55:50 Social History Question Answer Notes LastModified by Organizat ion Details LastModified Time Tobacco Smoking Status Current Every Day Smoker Macarena Amaya LPN null, [facility] 08/31/2021 10:47:48 Do You Have An Advance Directive? No Information not available 05/30/2012 What Is Your Level Of Alcohol Consumption? None Information not available 07/30/2013 Are You Blind Or Do You Have Difficulty Seeing? No Information not available 07/30/2013 What Is Your Level Of Caffeine Consumption? Moderate Information not available 05/09/2022 How Much Tobacco Do You Chew? None [email or web address] Information not available 06/09/2017 Are You Currently Employed? No Information not available 05/09/2022 Are You Deaf Or Do You Have Serious Difficulty Hearing? Yes Left Ear Issue Information not available 07/30/2013 What Type Of Diet Are You Following? REGULAR Information not available 05/30/2012 Which Illicit Or Recreational Drugs Have You Used? None Information not available 04/01/2020 Do You Or Have You Ever Used E-cigarettes Or Vape? Never Used Electronic Cigarettes Information not available 04/01/2020 What Is Your Occupation? [employer] Information not available 07/30/2013 Have There Been Any Changes To Your Family Or Social Situation? No Information not available 05/09/2022 How Many Days In The Past Year Have You Had A Heavy Drinking Consumption (4+ Female, 5+ Male)? 0 Information not available 07/30/2013 Are There Any Guns Present In Your Home? No Information not available 05/06/2021 Do You Use Insect Repellent Routinely? No Information not available 05/06/2021 Live Alone Or With Others? With Others Information not available 05/30/2012 CSRP - Narcotics No [email or web address] Information not available 02/14/2014 CSRP Contract Signed And Discussed No [place]--Stopped For Cocaine 02/10/14 [email or web address] Information not available 02/14/2014 Patient Has Health Care Proxy Signed And In Chart No Information not available 05/30/2012 CCM Consent Discussion 04/04/2016 [email or web address] Information not available 06/07/2016 Marital Status Single [employer] Info rmation not available 05/30/2012 What Was The Date Of Your Most Recent Tobacco Screening? 06/03/2022 [email or web address] Information not available 06/03/2022 How Many Children Do You Have? 2 Information not available 05/30/2012 What Is Your Current Pack Years? 10packyemariano hare Information not available 07/11/2017 Do You Use Your Seat Belt Or Car Seat Routinely? Yes Information not available 05/06/2021 Do You Have Smoke And Carbon Monoxide Detectors In Your Home? No Information not available 05/09/2022 Are You Passively Exposed To Smoke? Yes Information not available 05/06/2021 Do You Or Have You Ever Used Smokeless Tobacco? Never Used Smokeless Tobacco Information not available 04/01/2020 How Much Tobacco Do You Smoke? 0.5 PPD Information not available 05/09/2022 General Stress Level [facility] Information not available 05/30/2012 Do You Use Any Illicit Or Recreational Drugs? No Information not available 06/08/2021 Do You Use Sunscreen Routinely? No Information not available 05/06/2021 Do You Or Have You Ever Used Any Other Forms Of Tobacco Or Nicotine? No Information not available 05/09/2022 Sex: Unknown Functional Status Question Answer Note LastModified by Organization D etails LastModified Time Do you have difficulty walking or climbing stairs? Yes [facility] Information not available 07/30/2013 Do you have difficulty doing errands alone? Yes Information not available 07/30/2013 Do you have difficulty dressing or bathing? Yes [facility] Information not available 07/30/2013 What is your exercise level? None Information not available 05/06/2021 Mental Status Question Answer Note LastModified by Organizat ion Details LastModified Time Do you have difficulty concentrating, remembering or making decisions? Yes [facility] Information n ot available 07/30/2013 Family History Relationship Description Onset Age of this Age Resolved Age Notes LastModified by Organization Details LastModified Time Father Diabetes mellitus [email or web address] Not available 2013 10:19:39 Father Heart disease [email or web address] Not available 2013 10:19:39 Medical History No medical history recorded. Immunizations Vaccine Type Date Status Note Provider Nam e and Address Organization Details Recorded Time Tdap 2 completed Not Available [facility] 07/06/2019 02:16:04 Influenza, split virus, trivalent, PF 3 completed Not Available [facility] 02:19:00 Influenza, split virus, trivalent, PF 4 completed Not Available [facility] 07/06/2019 02:19:22 Td (adult) 7 [facility]2012 10:54:47 Influenza, split virus, quadrivalent, PF 6 completed Not Available [facility] 07/06/2019 02:21:04 Influenza, split virus, quadrivalent, preservative 7 completed Benito Simon MD [address] [place] [address], [id number] 06/09/2017 09:20:58 Influenza, split virus, quadrivalent, PF 1 completed [facility] 03/15/2021 09:45:30 Td (adult), 2 Lf tetanus toxoid, preservative free, adsorbed [address] [facility] 06/03/2022 11:30:52 Influenza, split virus, quadrivalent, PF 2 completed ALONZO Hager, [facility] 06/03/2022 11:30:52 zoster recombinant 2 completed [facility] 07/23/2021 09:39:04 Past Encounters Encounter ID Performer Location Encounter Start Date Encounter Closed Date Diagnosis/Indication Diagnosis SNOMED-CT Code Diagnosis ICD10 Code Diagnosis Note [id number] Benito Simon MD , [facility], [address] [place] [address] 05/30/2012 10:47:14 05/30/2012 11:34:21 [id number] Benito Simon MD , [facility], [address] [place] [address] 07/27/2012 08:31:02 07/27/2012 09:08:06 [id number] Benito Simon MD , [facility], [address] [place] [address] 09/21/2012 09:13:52 09/21/2012 11:20:06 [id number] Benito Simon MD , [facility], [address] [place] [address] 10/26/2012 09:17:25 10/26/2012 09:47:32 [id number] Benito Simon MD , [facility], [address] [place] [address] 02/01/2013 10:45:24 02/01/2013 11:37:18 Chronic pain 03215147 Currently on CSRP for left elbow and low back pain (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 No concerns with UDS or aberrant behavior. No need for escalating dose. Stable on current medication s. 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 Will schedule an appointmen t with Dr. Henry. [facility] policy reviewed and signed. Patient demonstrat es understand ing. Continue MS Contin 30mg po bid and Oxycodone 10mg po q8 hours prn. [id number] Benito Simon MD , [facility], [address] [place] [address] 05/03/2013 10:21:17 05/03/2013 11:30:14 Chronic pain 08726605 Currently on CSRP for left elbow and low back pain (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 No concerns with UDS or aberrant behavior. Behavioral modificati on and increasing activity discussed. Medication dose will be increased at this visit. Advised to contact the clinic with any concerns. Recommend returning to physical therapy if inadequate pain relief. Will consider mental health referral as well. 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 Will schedule an appointmen t with Dr. Henry. [facility] CSRP policy reviewed and signed. Patient demonstrat es understand ing. Increase MS Contin to 60mg po bid. Advised to limit Oxycodone 10mg use to once or twice daily as needed (previousl y was on tid dosing). Constipation 00523221 Theodore s Lactulose as needed. Previous constipati on. Start Colace as needed for anticipati on of worsening bowel function. Fiber use discussed. Hypertriglyceridemia 921519639 Previously had elevated TG 341 (01/2013). LDL was within normal. Low fat/choles terol diet and increasing activity discussed. Repeat FLP. Influenza vaccine needed [id number] Benito Simon MD , [facility], [address] [place] [address] 07/30/2013 09:46:54 07/30/2013 10:31:01 Adult health examination [id number] See Risk Assessment and Lifestyle Change Counseling section above. Home/vehic le/sexual safety reviewed. Influenza and Tdap vaccines UTD. Counseling [id number] Chronic pain 17577579 Cu rrently on CSRP for left elbow and low back pain (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 No concerns with UDS or aberrant behavior. Behavioral modificati on and increasing activity discussed. Continue current medication doses. Advised to contact the clinic with any concerns. Recommend returning to physical therapy if inadequate pain relief. Will consider mental health referral as well. Hypertriglyceridemia 893778161 Previously had elevated TG 341 (01/2013). LDL was within normal. Low fat/choles terol diet and increasing activity discussed. Repeat FLP. 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 [facility] Dr. Henry[facility]. Patient demonstrat es understand ing. Continue MS Contin 60mg po bid and Oxycodone 10mg po q8 hours prn. Constipation 27721496 Theodore s Lactulose and Colace as needed. Increased fiber use discussed. Understand s his constipati on likely worsened by chronic opioid use. Feels like he now has a good control over his bowel movements. Tobacco de pendence syndrome 49574072 Encouraged cessation. Behavioral modificati on discussed. Goal setting discussed using motivation al asif pereyra. Interested in Nicotine patches. [employer] informatio n given as well. Will follow up at his next visit. [id number] Benito Simon MD FP, [facility], [address] [place] [address] 11/08/2013 09:19:12 11/08/2013 10:00:51 Chronic pain 14631412 Currently on CSRP for left elbow and low back pain (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 No concerns with UDS or aberrant behavior. Behavioral modificati on and increasing activity discussed. Continue current medication doses. Advised to contact the clinic with any concerns. Recommend returning to physical therapy if inadequate pain relief. Seeing a mental health therapist Melia ([facility]). Elbow pad prescribed for additional protection . Refilled his chronic medication s (Oxycodone and MS Contin) today. Hypertriglyceridemia 555430969 Previously had elevated TG 341 (01/2013). LDL was within normal. Low fat/choles terol diet and increasing activity discussed. Repeat FLP. Tobacco de pendence syndrome 08751338 Encouraged cessation. Behavioral modificati on discussed. Goal setting discussed using motivation al asif pereyra. Interested in Nicotine patches. [employer] informatio n given as well. Will follow up at his next visit. [id number] Benito Simon MD , [facility], [address] [place] [address] 02/10/2014 10:07:55 02/10/2014 11:08:25 Chronic pain 37273623 Currently on CSRP for left elbow and low back pain (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 Recent UDS showed cocaine. Explained to the patient I am unable to continue his opioid pain medication s. Will slowly titrate off the medication s. Patient understand s and accepts the plan. Behavioral modificati on and increasing activity discussed. Recommend returning to physical therapy. Seeing a mental health therapist Melia ([facility]). Will keep the Oxycodone dose the same. Will lower the dose of MS Contin from 60mg po bid to MS Contin 30mg po tid. Follow up in 10 days for re-evaluat ion. Check UDS. 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 Followed by Dr. Henry. [facility] CSRP policy reviewed and signed. Patient violated the contract with positive cocaine in his urine. Will titrate the medication (MS Contin first, then Oxycodone) . Explained to the patient I am unable to continue his opioid pain medication s. Will slowly titrate off the medication s. Patient understand s and accepts the plan. Behavioral modificati on and increasing activity discussed. Recommend returning to physical therapy. Seeing a mental health therapist Melia ([facility]). Follow up in 4 weeks. Titration schedule as followed: -Take MS Contin 15mg 2 tablets PO bid with 1 at noon time (02/20-02/26) -Take MS Contin 15mg 2 tablets po bid (02/27-03/05 ) -Take MS Contin 15mg 1 tab po tid (03/06- 03/12) -Take MS Contin 15mg 1 tab po bid (03/13-03/19 ) -Continue current dose of Oxycodone 10mg po tid (will titrate off once he is off MS Contin) Hypertriglyceridemia 414556292 Patient with TG of 505 (01/2014). Would like to try lifestyle modificati on first. Discussed low fat/choles terol diet. Encouraged exercise. Repeat FLP in 3 months. If persistent ly elevated, will start fibrate medication . 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 Followed by Dr. Henry. [facility] policy reviewed and signed previously . Patient violated the contract with positive cocaine in his urine. Will titrate the medication (MS Contin first, then Oxycodone) . Explained to the patient I am unable to continue his opioid pain medication s. Will slowly titrate off the medication s. Patient understand s and accepts the plan. Behavioral modificati on and increasing activity discussed. Recommend returning to physical therapy. Seeing a mental health therapist Melia ([facility]). Follow up in 4 weeks. 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 Followed by Dr. Henry. [facility] policy reviewed and signed previously . Patient violated the contract with positive cocaine in his urine (once). On a titration schedule. MS Donovan has been discontinu ed (from 60mg po bid). Oxycodone was titrated from 10mg po tid to bid prn. Explained to the patient I am unable to continue his opioid pain medication s. Will continue to titrate off the medication s. Patient understand s and accepts the plan. Behavioral modificati on and increasing activity discussed. Recommend returning to physical therapy. Seeing a mental health therapist Melia ([facility]). Follow up in 4 weeks. Will present the case at the [facility] meeting. Check UDS. Knee pain 29204705 No ligamentou s instabilit y. No meniscal sign. Denies any recent trauma or fall. Suspect arthritis, likely post-traum a from previous accidents. Influenza vaccine needed [id number] Benito Simon MD , [facility], [address] [place] [address] 06/30/2014 09:16:31 07/02/2014 11:21:56 Chronic pain 34551378 Recently violated the [facility] contract due to positive UDS for cocaine x2. Understand s that [facility] is not able to prescribe opioid pain medication s. Patient wishes to continue his medical care here. No current withdrawal symptoms. Advised to see his orthopedic providers for left elbow and low back pain (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 Patient understand s and accepts the plan. Behavioral modificati on and increasing activity discussed. Recommend returning to physical therapy. Seeing a mental health therapist Melia ([facility]). Hypertriglyceridemia 208882640 Patient with TG of 505 (01/2014). Would like to try lifestyle modificati on first. Discussed low fat/choles terol diet. Encouraged exercise. Has not performed his repeat FLP. Advised to get lab work done. If persistent ly elevated, will consider a fibrate medication . [id number] Benito Simon MD , [facility], [address] [place] [address] 04/04/2016 13:47:34 04/04/2016 14:36:59 Adult health examination 292219025 Z00.00 See Risk Assessment and Lifestyle Change Counseling section above. Tdap vaccine UTD. Influenza vaccine administer ed today. Has [employer] 3 hours daily. Optometry exam recommende d. Smoking cessation discussed. CCM reviewed. Counseling [id number] Z71 .9 Cigarette smoker 8044371 7 F17.210 Currently smokes about 1 PPD. Behavioral modificati on and goal setting discussed. Interested in Chantix. Potential adverse effects of the medication reviewed. Tobacco user 238260219 Z 72.0 Active or passive immunization [id number] Z23 Hypertriglyceridemia 302 236195 E78.1 Previously found to have elevated TG. Encouraged to keep low fat/choles terol diet and exercise. Recheck FLP. Pain of joint 86209131 M 25.50 Ongoing joint pain due to multiple orthopedic issues. Especially painful due to left elbow deformity. Discharged from [facility] due to prvious use of cocaine. Will further increase Gabapentin dose. [id number] Benito Simon MD , [facility] [facility], OFFICE [address] [place] [address] 06/09/2017 08:48:53 06/09/2017 09:36:34 Adult health examination 915718800 Z00.00 See Risk Assessment and Lifestyle Change Counseling section above. Tdap vaccine UTD. Influenza vaccine administer ed at outside facility. Has [facility] 3 hours daily. Optometry exam recommende d. Smoking cessation discussed. CCM reviewed. Counseling 604271046 Z71 .9 Cigarette smoker 0078895 7 F17.210 Currently smokes about 1 PPD. Behavioral modificati on and goal setting discussed. Interested in Nicotine substitute . Rx for patch prescribed . Potential adverse effects of the medication reviewed. Tobacco user 875720079 Z 72.0 Hypertriglyceridemia 302 930812 E78.1 Previously found to have elevated TG. Encouraged to keep low fat/choles terol diet and exercise. Recheck FLP. Pain of joint 81213117 M 25.50 Ongoing joint pain due to multiple orthopedic issues. Especially painful due to left elbow deformity. Discharged from [facility] due to previous use of cocaine. Patient self discontinu ed Gabapentin . Also followed by Orthopedic s. Otitis media 50291293 H6 6.91 Involving bilateral ears in a setting of URI. Informed likely resolve, but significan t pain and muffled hearing. Erythemato us bulging TM with middle ear fluids. Will treat with Augmentin. Cough 50316518 R05 Patient with clinical presentati on of viral upper respirator y infection. No hemodynami c instabilit y. Supportive care with ample oral hydration and rest discussed. Advised on nasal saline irrigation , decongesta nt, and NSAID use. Cough medication prescribed . Advised to contact the clinic if no improvemen t in 3-4 days. Indication s for UC/ER use discussed. Insomnia 717143139 G47.0 0 Patient reports increased insomnia. Sleep hygiene discussed. Also with PHQ-9 score of 15. Encouraged to seek BH therapy. Trial of Seroquel discussed. May titrate up. Potential adverse effects of the medication reviewed. Follow up in 1 month for re-evaluat ion. [id number] Benito Simon MD , [facility], [address] [place] [address] 07/11/2017 09:18:06 07/11/2017 09:46:09 Cigarette smoker 96499663 F17.210 Currently smokes about 1 PPD. Behavioral modificati on and goal setting discussed. Interested in Nicotine substitute . Rx for patch prescribed . Potential adverse effects of the medication reviewed. Tobacco user 147459117 Z 72.0 Hypertriglyceridemia 302 488281 E78.1 Previously found to have elevated TG. Encouraged to keep low fat/choles terol diet and exercise. Recheck FLP. Pain of joint 80854198 M 25.50 Ongoing joint pain due to multiple orthopedic issues. Especially painful due to left elbow deformity. Discharged from [facility] due to previous use of cocaine. Patient self discontinu ed Gabapentin . Also followed by Orthopedic s (Dr. Chelle Henry). Will schedule for a follow up as now he is developing left wrist pain (ulnar aspect). Trial of Lyrica discussed. Insomnia 405559642 G47.0 0 Patient reports increased insomnia. Sleep hygiene discussed. Also with PHQ-9 score of 15. Encouraged to seek BH therapy. Trial of Seroquel discussed. States he is doing well at the current dose. Potential adverse effects of the medication reviewed. 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 no treatment indicated, observe. Tobacco user 363418919 Z 72.0 recommend smoking cessation. [id number] Laura Pruett MD , [facility], [address] [place] [address] 04/01/2020 08:13:18 04/02/2020 13:37:27 Cigarette smoker 64387884 F17.210 Discussed, pt used chantix in past and does not want to discuss today. Tobacco user 268722213 Z 72.0 See above. 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 Burning pain, worse at night and when walking; radiates a little up to knees. Nothing relieves it.Will order BMP (check glucose, ? elevated sugar) & refer to PT. Pt reports he has transporta tion and can get labs and come to PT.Reviewe d when to f/u with Of[facility]. Hypertriglyceridemia 302 441161 E78.1 Lipids overdue, will order as pt going to lab at [facility]. Pain of elbow region 743 14344 M25.[address] Chelle Henry @ [facility] s/t atrophy and inability to use L arm.Would like eval s/t recent onset pain.Will request record from [facility] to include with record and refer back to Dr. Henry, who is now at [facility]. [id number] Delfin Coreas MD , [facility], [address] [place] [address] 12/18/2020 14:59:27 12/18/2020 15:27:06 Deep venous thrombosis 924673098 I82.409 Dx yesterday in ER. Right popliteal vein. Starting eliquis today, discussed dosing.Robinson f pain persists otherwise asymptomat ic. Emphasized importance of smoking cessation. F/U in 1 week. [id number] Delfin Coreas MD FP, [facility], [address] [place] [address] 12/25/2020 10:25:50 12/27/2020 14:25:40 Deep venous thrombosis 911360214 I82.409 Dx last [facility]e kin ER. Right popliteal vein. Taking eliquis.Ca lf pain and mild swelling persist otherwise asymptomat ic.COntinu e eliquis 5 mg BID.Encour aged compressio n, elevation, at rest, and regular walking.Em phasized importance of smoking cessation. Has F/U in 1 month with FK. Pain in right knee 60269 38338 69699 M25.561 Pain and swelling in right knee X 3 months. Pt requesting orthopedic referral. WIll get xray. [id number] Danni Causey DO FP, [facility], [address] [place] [address] 02/18/2021 10:13:52 02/19/2021 11:06:48 Deep venous thrombosis 402092675 I82.409 Pt is s/p treatment with eliquis, still reporting pain and tightness in calf. Will repeat doppler. Pt to go to ED if he has CP, SOB, palpitatio ns or other concerning symptoms. Pt expresses understand ing of this plan. Cigarette smoker 2494638 7 F17.210 Discussed and encourage smoking cessation. Patient contemplat ing but not ready. Encourage follow up if needing assistance with this. Tobacco user 501227667 Z 72.0 Pain in ri ght lower limb 659276063 M79.604 As above. Syncope 385907553 R55 EKG today showing no acute ischemic changes, NSR. Will get echo as patient has had multiple syncopal episodes and DVT. Injury of head 22694022 S09.90XA No lasting effects. Atypical chest pain 1025 73506 R07.89 Plan as above. Hypertriglyceridemia 302 895728 E78.2 Pt should consider statin-the rapy. [id number] Benito Simon MD FP, [facility], [address] [place] [address] 03/15/2021 09:09:27 03/15/2021 13:29:10 Screening for malignant neoplasm of colon 323856691 Z12.11 Will refer for screening colonoscop y. Recommende d to wait to schedule the procedure until he is off DOAC to minimize the risks. Active or passive immunization 000265253 Z23 Acute deep venous thrombosis of right lower extremity 4150021260 61450 I82.401 Unprovoked RLE DVT. Initially was diagnosed with DVT in 12/2020 at [facility]. Was prescribed Eliquis 30-day course (5mg bid after the loading dose). Did not realize to continue beyond the first Rx. Stopped 3 weeks ago. Repeat Venous Doppler (02/2021) showed an increasing thrombus in the right superficia l femoral vein, interval decrease in thrombus in the popliteal vein, posterior tibial and peroneal veins (with recanaliza tions). Denies any bleeding symptoms. Family history unknown. Recommende d to continue for 6-months of DOAC treatment until 08/2021, then consider hypercoagu lable work up. Currently has a Wellness appointmen t scheduled. [id number] DO HELGA Eddy, [facility], [address] [place] [address] 05/06/2021 09:08:39 05/06/2021 10:05:34 Adult health examination 187878449 Z00.00 Pts overall health is fair. Start vitamin D. Next [place] in 1 year. Depression screening 171 452238 Z13.31 depression screening tool administer ed, entered into emr, scored and discussed, time greater than 7.5 minutes Screening for alcohol abuse 410213984 Z13.39 Counseling 730817103 Z71 .89 including cardiovasc ular risk reduction counseling Screening for malignant neoplasm of colon 343390853 Z12.11 Referral for a DIRECT booked colonoscop y. This patient is a healthy ASA Class 1 or 2 patient (only mild systemic disease), or a STABLE, well controlled insulin dependent diabetic. They do not have serious cardiac disease ie MT/angiopl asty within 1 year, symptomati c CHF; renal failure with CKD 4 or 5; take Coumadin, Plavix, Aggrenox, etc. Screening for disorder 521033911 Z11.59 Cigarette smoker 7793078 7 F17.210 Discussed and encourage smoking cessation. Patient contemplat ing but not ready. Encourage follow up if needing assistance with this. Tobacco user 728358494 Z 72.0 Chest pain 88524390 R07. 9 Resolved. Abdominal wind pain 4597 9003 R14.1 Trial of simethicon e. Difficulty sleeping 3013 57634 Z72.820 Trial of melatonin. Panic attack 668081601 F 41.0 Trial of hydroxyzin e. [id number] Teresa Cowan, [facility], [address] [address] 05/20/2021 09:41:54 06/03/2021 11:18:28 Presbyopia 34545919 H52.4 Corneal scar 61358369 H1 7.12 s/p FB removal per patient, now with scar. no treatment indicated, observe. Tobacco user 440076547 Z 72.0 recommend smoking cessation. Dry eyes 797123414 H04.1 29 by hx. recommend AT 2-3 x per day. [id number] Keanu Thompson MD , [facility], [address] [place] [address] 06/08/2021 07:55:22 06/14/2021 20:36:36 Backache 361399834 M54.9 Recommend also try PT. Referral placed. Follow-up with PCP soon; may need earlier appt with specialist Tobacco user 928242876 Z 72.0 [id number] Danni Causey DO , [facility], [address] [place] [address] 07/01/2021 09:11:53 07/06/2021 08:52:42 Chronic pain 01096001 G89.29 Pt working with ortho to have surgery scheduled next month. They have been rx tramadol and need refill soon- advised to reach out to ortho office for refill and recs on how to manage pain until he can have the surgery which they had been managing previously . Will send PA for lidocaine patches. Trial of diclofenac gel as patient on eliquis and should not take PO NSAIDS. Call with new/worsen ing symptoms or if no improvemen t. Pt agrees with plan. Backache 378167463 M54.9 See above. Deep venou s thrombosis 665168175 I82.409 Cont Eliquis- will need life-long per heme. [id number] Robert Amaya MD , [facility], [address] [place] [address] 07/30/2021 09:17:14 08/02/2021 10:46:14 Cigarette smoker 33978786 F17.210 Tobacco user 166269176 Z 72.0 Bleeding from nose 52057 6005 R04.0 NO PERSISTANT SIGNS OF BLEEDING, pt will f/u if any recurrence , know to avoid nsaids, asa. discussed how to stop bleeding from the nose. [id number] DO HELGA Eddy, [facility], OFFICE [address] [facility] [place] [address] 08/16/2021 12:00:56 08/16/2021 13:41:08 Elevated blood-pressure reading without diagnosis of hypertension 390755935 R03.0 Pt was told at surgeon's office that BP was elevated. Notes not yet received. Pt asymptomat ic, to schedule BP clinic, home machine order sent. [id number] Danni Causey DO [facility], [address] [place] [address] 08/31/2021 10:44:05 09/06/2021 10:14:05 Screening for disorder 347935303 Z11.59 Benign ess ential hypertension 6614254 I10 Start antihypert ensive medication today, 2 hours later please repeat BP and call in the result. Will adjust medication as indicated. Discussed red flag symptoms including THEODORE, vision changes, CP, SOB, palpitatio ns in which case patient should seek immediate medical attention. Pt agrees with plan. Hypertensive urgency 443 958967 I16.0 Unclear if THEODORE related to elevated BP. Plan as above. Discussed red flag symptoms including THEODORE, vision changes, CP, SOB, palpitatio ns in which case patient should seek immediate medical attention. Pt agrees with plan. Headache 84616074 R51.9 As above. [id number] Danni Causey DO , [facility], [address] [place] [address] 09/06/2021 09:21:43 09/06/2021 10:12:10 Pain of joint 99899464 M25.50 Pt with chronic back pain, has spinal stimulator . Cont lidocaine patches. Will increase gabapentin dose, f/u in 1 month for re-eval of pain/dosin g. Dizziness 547648077 R42 Neg workup thus far, possibly 2/2 pain vs elevated BP. Intermitte nt palpitations 390918243 R00.2 Neg workup thus far, possibly 2/2 pain vs elevated BP. Headache 79456695 R51.9 Neg workup thus far, possibly 2/2 pain vs elevated BP. Benign ess ential hypertension 7787754 I10 Will increase HCTZ. Home BP monitor does not match G BP readings. Will send new monitor. Pt advised to call the office to schedule BP clinic to bring in new cuff and compare with ours. Discussed red flag symptoms including THEODORE, vision changes, CP, SOB, palpitatio ns in which case patient should seek immediate medical attention. Pt agrees with plan. Chronic low back pain 27 7306440 M54.50 REfill lidocaine. Polyp of colon 17174493 K63.5 Await GI notes. Per patient 3 polyps removed. [id number] Danni Causey DO , [facility], [address] [place] [address] 11/02/2021 14:56:28 11/23/2021 11:41:56 Chronic back pain 403898871 M54.9 On-going, to f/u with ortho. Referred to pain mgt- contact info provided, will get x-ray as pain has worsened. Insomnia 290213359 G47.0 0 Dealing with difficulty sleeping, pain and depression 2/2 pain. Start trazodone QHS. Discussed indication s for new prescripti on, risks and benefits of medication , common side effects and how to manage, and reasons to notify prescriber of adverse effects or discontinu ation. Depressive disorder 3548 9007 F32.A As above. [id number] Marika jimenez PA-C , [facility], [address] [place] [address] 05/09/2022 09:07:10 05/09/2022 09:42:32 Adult health examination 568834736 Z00.00 Pts overall health is fair. Reviewed labs. Next [place] in 1 year.next colon 2024 Counseling 522404396 Z71 .9 including cardiovasc ular risk reduction counseling Depression screening 171 629412 Z13.31 depression screening tool administer ed, entered into emr, scored and discussed Screening for alcohol abuse 422435330 Z13.39 Deep venou s thrombosis 363602510 I82.409 Cont Eliquis- will need life-long per heme. Hypertriglyceridemia 302 850434 E78.2 Pt agrees to start statin therapy. Will recheck in 3 months. 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 Impaired f asting glycemia 260164190 R73.01 Repeat labs in 3 months. Work on decreasing carbs/swee ts in diet. Thoracic back pain 48538 8004 M54.6 Following pain mgt, awaiting imaging with specialist . [id number] Robert Amaya MD , [facility], [address] [place] [address] 06/03/2022 10:31:57 06/03/2022 17:41:42 Tobacco user 697555682 Z72.0 Active or passive immunization 380988335 Z23 Insomnia 790297127 G47.0 0 with chronic back pain- sleep dierupted- will trial increasing trazodone- pt states has hx depression - discussed duloxetine may be added- f/u with PCP Dental caries 83973744 K 02.9 Pre-surger y evaluation 550780648 Z01.818 pt cleared for surgery- pending review of ER visit. requested record from recent emergency room visit re seizure like activity. Bereavement 33512373 Z63 .4 pt lost his son this week- has therapist/ sched appt. pt asking for med to help with - will review ER visit where sedative was used- pt reorts did not help- f/u with pt Health Concerns Section Related Observation LastModified by Organization Detai ls LastModified Time None Recorded Concern Status LastModified by Organization Details LastModified Time None Recorded Advance Directives Directive N: Payers Encounter Date Sequence Insurance Name Policy Number Policy Villa Covered Member ID Villa Member ID Guarantor Name 08/31/2021 1 [facility] - DOS PRIOR TO 2022 - DUAL ELIGIBLE (MEDICARE REPLACEMENT/ADV ANTAGE - HMO) Bismark Contreras [id number] Bismark Contreras 09/06/2021 1 [facility] - DOS PRIOR TO 2022 - DUAL ELIGIBLE (MEDICARE REPLACEMENT/ADV ANTAGE - HMO) Bismark Contreras [id number] Bismark Contreras 11/02/2021 1 [facility] - DOS PRIOR TO 2022 - DUAL ELIGIBLE (MEDICARE REPLACEMENT/ADV ANTAGE - HMO) Bismark Contreras [id number] Bismark Contreras 05/09/2022 1 [facility] - DOS PRIOR TO 2022 - DUAL ELIGIBLE (MEDICARE REPLACEMENT/ADV ANTAGE - HMO) Bismark Ben [id number] Bismark Contreras 06/03/2022 1 [facility] - DOS PRIOR TO 2022 - DUAL ELIGIBLE (MEDICARE REPLACEMENT/ADV ANTAGE - HMO) Bismrak Contreras [id number] Bismark Contreras Notes Date Note Type Note Provider Name and Address Organization Details Recorded Time 08/31/2021 text/html Patient presents virtually w/dtr as translatorc/o elevated bp at home would like to discuss medshad an episode yesterday of elevated bp and hypoxia- went to [facility]/o [facility] on HTN meds Time for intake: {{1 2 3 4 5 6 7* 8 9 10 11 12 13 14 15 16 17 18 19 20 21 22 23 24 25}} minutes. Pt went to f/u for spinal stimulator, pt got SOB, o2 dropped and BP went up. Went to ED and all testing was normal. 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 Only happens sometimes has THEODORE, sometimes dizziness-seen in [facility] ED last week for same symptoms and syncope during spinal stim manipulation. EKG neg per ED note. -colonoscopy: per partner 3 polyps Danni Causey DO [address] [place] [address], [phone], [facility] 09/06/2021 10:14:45 11/02/2021 text/html f/u from [facility] on 10/25 for back pain. Left AMA still experiencing upper back pain- ongoing for 3 months. getting worse. unable to sleep. sitting makes the pain worsepain is worse at night Danni Causey, DO [address] [facility], [place], [address], [facility] 11/04/2021 13:37:40 05/09/2022 text/html Physical Exam/MaleReported bypatient.Maximo sher is here for a Wellness Visit. He describes his health status as good. Patient's health is the same as last year.Risk Assessment and Lifestyle Change Counseling 65+ (Medicare)Reported bypatient.Coronary Artery Disease Risk Assessment:Family History of Coronary Artery Disease; No personal history of diabetes; No history of peripheral vascular disease, AAA, or carotid disease; No personal history of coronary artery disease Breast Cancer Risk Assessment:No family history of breast cancer; No history of breast cancer or dcis Colon Cancer Risk Assessment:No family history of pre cancerous colon polyps or cancer Lung Cancer Risk Assessment:Current smoker; working on stopping, 1 in am Fracture Risk Assessment:No unexplained fracture; No use of corticosteroids; No anti-seizure medication; Normal bone density; Has adequate calcium intake; No chronic use of proton pump inhibitors Cognitive/Behaviora l Risk Assessment:No personal history of mental illness Functional Status:Patient does not have trouble hearing the television or radio when others do not. Diet:Counseled about appropriate portion size; Counseled about eating a diet low in trans and saturated fats and high in fiber, fruits and vegetables; Counseled about appropriate calcium intake and good dietary sources of calcium.; Counseled about the importance of maintaining a positive calcium balance and taking 1000 iu Vitamin D daily.; Counseled about decreasing carbohydrates; Counseled about decreasing salt in diet; Discussed the value of a Mediterranean diet , and eating more fruits and vegetables Exercise counseling:Discusse d the importance of daily physical activity; Discussed the importance of weight bearing exercise; no exercise Safety:Counseled about protecting skin from the sun and lowering the risk of skin cancer; Counseled about avoiding excessive and unsafe alcohol intake; Counseled about safer sexual practice; Counseled about use of helmets for high velocity activiities; Counseled about home safety including use of smoke detectors, CO detectors, keeping home water temperature less than 120; Counseled about use of seat belts; Counseled about fall risk from throw rugs and the need for hand rails on steps and in bath; An audit alcohol screening was performed and scored. Patient was asked about alcohol use. Advised about risks of alcohol. Personal risk was assessed. Patient agreed to plan and given information about available resources if needed. Discussion including screening and scoring greater than 7.5 minutes..a/vmg-smok ing [id number] bypatient.Notes:christopher chadwick 2ppd Danni Causey, DO [address] [place] [address], [phone], [facility] 05/09/2022 14:03:14 06/03/2022 text/html PT here for dent al clearance/ . hasnt sched as yet. Girlfriend is concerned about his mental health and sleep problems.recent loss of son, sleep- disrupted due to back pain, HCC Insurance denied CT scan, JOHN , nutrition-had seizure like activity Perri Amaya, DEMOND [address] [place] [address], [phone], [facility] 06/03/2022 11:34:26
--- OUTSIDE RECORDS SUMMARY | 2024-10-24 14:55 | XMS_ITS | Clinical Summary ---
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 Fire Fighter Name Role Phone Unavailable Primary Care Provider Unavailabl e Allergies No known active allergies Medications No known medications Social History Tobacco Use Types Packs/Day Years Used Date Smoking Tobacco: Former Cigarettes Smokeless Tobacco: Former Tobacco Cessation:Counseling Given: Not Answered Alcohol Use Standard Drinks/Week Comments Never 0 (1 standard drink = 0.6 oz pur e alcohol) Sex and Gender Information Value Date Recorded Sex Assigned at Male 04/18/2022 10:19 AM EDT Legal Sex Male 10:19 AM EDT Gender Identity Choose not to disclose 10:19 AM EDT Sexual Orientation Choose not to disclose 2021 10:19 AM EDT Last Filed Vital Signs Vital Sign Reading Time Taken Comments Blood Pressure 125/82 10/20/2022 1:46 PM EDT Pulse 72 10/20/2022 1:46 PM EDT Temperature - - Respiratory Rate - - Oxygen Saturation - - Inhaled Oxygen Concentration - - Weight - - Height - - Body Mass Index - - Plan of Treatment Health Maintenance Due Date Last Done Comments Anal Pap 1971 CT Colonography 1971 Dental Oral Exam 1971 Dental Prophylaxis 1971 Dental X-Ray: Bitewings 1971 Dental X-Ray: Full Mouth 1971 Depression Screening 1971 FIT DNA/Cologuard 1971 FIT 1971 FOBT 1971 HIV Screening 1971 Lipid Panel 1971 SDOH Screening 1971 Sigmoidoscopy 1971 Alcohol/Substance Use Screening 1983 Hepatitis C Screening 1989 Hepatitis A Vaccines (1 of 2 - Risk 2-dose series) 1990 Hepatitis B Vaccines (1 of 3 - 19+ 3-dose series) 1990 Pneumococcal Vaccine: 50+ Years (1 of 1 - PCV) 2021 Zoster Vaccines (2 of 2) 09/15/2021 07/21/2021 Tobacco Screening 10/21/2023 10/20/2022 COVID-19 Vaccine (1 - 2023- season) 2024 Influenza Vaccine (#1) 2024 2, 03/15/2021, 05/19/2017, Additional history exists Colonoscopy 07/26/2031 07/26/2021 Colorectal Cancer Screening 07/26/2031 DTaP/Tdap/Td Vaccines (4 - Td or Tdap) 06/03/2032 06/03/2022, 05/23/2017, 05/30/2012, Additional history exists RSV Patients and Patients Aged 60 years or older (1 - 1-dose 75+ series) 2046 HIB Vaccines Aged Out No longer eligi ble based on patient's age to complete this topic HPV Vaccines Aged Out No longer eligi ble based on patient's age to complete this topic IPV Vaccines Aged Out No longer eligi ble based on patient's age to complete this topic Meningococcal Vaccine Aged Out No salima alfonso eligible based on patient's age to complete this topic RSV under 20 months Aged Out No longe r eligible based on patient's age to complete this topic Rotavirus Vaccines Aged Out No longer eligible based on patient's age to complete this topic Insurance [facility]
== END 2024-10-24 14:57 | disposition home or self-care (01) ==
LOC: HO.HMCH 14:00
PROVIDERS: PCP Internal Medicine; Visit Provider Internal Medicine
DX: I10 Essential (primary) hypertension (principal); M54.9 Dorsalgia, unspecified; G89.29 Other chronic pain; E11.9 Type 2 diabetes mellitus without complications

== ENCOUNTER 2024-11-07 09:50 | Outpatient (REF) | payer OTHER, SELFPAY ==
[2024-11-07 11:28] LABS: Appearance Urine Clear; Color Urine Yellow; Glucose Urine UA Negative (Negative); Leukocyte Esterase Urine Negative (Negative); Nitrite Urine Negative (Negative); PH 5.5 (5.0-9.0); Urine Blood Negative (Negative); Urine Ketones Negative (Negative); Urine Protein Negative (Neg-Trace)
--- OUTSIDE RECORDS SUMMARY | 2024-11-07 11:59 | XMS_ITS | Clinical Summary ---
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 Name Role Phone Unavailable Primary Care Provider [...] Panel 1971 SDOH Screening 1971 Sigmoidoscopy 1971 Disability Screening 1971 Alcohol/Substance Use Screening 1983 Hepatitis C Screening 1989 Hepatitis A Vaccines (1 of 2 - Risk 2-dose series) 1990 Hepatitis B Vaccines (1 of 3 - 19+ 3-dose series) 1990 Pneumococcal Vaccine: 50+ Years (1 of 1 - PCV) 2021 Zoster Vaccines (2 of 2) 09/15/2021 07/21/2021 Tobacco Screening 10/21/2023 10/20/2022 COVID-19 Vaccine (1 - season) 2024 Influenza Vaccine (#1) 2024 2, [...] patient's age to complete this topic Meningococcal B Vaccine Aged Out No l onger eligible based on patient's age to complete this topic Meningococcal Vaccine Aged Out No salima alfonso eligible based on patient's age to complete this topic RSV under 20 months Aged Out No longe r eligible based on patient's age to complete this topic Rotavirus Vaccines Aged Out No longer eligible based on patient's age to complete this topic Insurance [facility]ENTAL [facility]
--- OUTSIDE RECORDS SUMMARY | 2024-11-07 11:59 | XMS_ITS | Data Portability ---
Author Organization [facility], , [facility] Address [address] [place] [address] Assessment Encounter Date Assessment Date Assessment LastModified by Organization Details LastModified Time 08/31/2021 08/31/2021 Patient agreed t o this visit via a secure telehealth platform due to the COVID -19 pandemic. Patient understands this is a scheduled visit and the usual procedures with regard to billing and confidentiality apply. Patient was notified that the provider location is [facility] Patient location: home During the visit the patient? s medical history and medical record were reviewed. The patient was notified to call our office for worsening or urgent symptoms. [email or web address] Not available 08/31/2021 11:01:44 Plan of Treatment Reminders Order Date Submit Date Provider Last Modified By Organization Details Last Modified Time Details Appointments None recorded . Lab hepatiti s C virus Ab, serum 2021 [facility], [address] [place], [address], 04:56:25 Referral sleep medicine referral 2021 [email or web address], [address] [facility] [address], [address], 10:38:13 pain manageme nt referral - back pain, NOT FOR MEDICATI ON MANAGEME NT 2021 [email or web address] [facility], [address] [facility] [address], [address], 12:44:43 Procedures None recorded . Surgeries None recorded . Imaging home sleep study 2021 [address] [place] [address] [facility], [address] [facility], [place], [address], 2 16:13:55 XR, thoracic spine 2021 [facility] (Imaging), [address] [place], [address], 18:00:00 Medication Orders Nicotrol 10 mg inhalati on cartridg e [address]/Pharmacy #2071, [address] [place], [address], 4 12:34:22 nicotine (polacri alea) 4 mg buccal lozenge [address]/Pharmacy #2071, [address] [place], [address], 4 12:34:17 trazodon e 100 mg tablet 2021 [email or web address] [facility]/Pharmacy #2071, [address] [place], [address], 4 15:56:49 atorvast atin 20 mg tablet [address]/Pharmacy #2071, [address] [place], [address], 4 12:33:31 trazodon e 50 mg tablet [address]/Pharmacy #2071, [address] [place], [address], 4 12:34:44 lidocain e 5 % topical patch [address]/Pharmacy #2071, [address] [place], [address], 4 12:33:59 hydrochl orothiaz nilton 50 mg tablet 2021 022 [email or web address] [facility]/Pharmacy #2071, [address] [place], [address], 4 12:33:52 gabapent in 300 mg capsule 2021 022 [email or web address] [facility]/Pharmacy #2071, [address] [place], [address], 4 12:33:45 hydrochl orothiaz nilton 25 mg tablet 2021 022 [email or web address] [facility]/Pharmacy #2071, [address] [place], [address], 15:17:40 Patient TargetsNo targets recorded. Patient Instructions Encounter Date Encounter Id Patient Instructions Last Modified By Organization Details Last Modified Time 11/02/2021 [id number] CCM: The provide r and patient discussed the Chronic Care Management program, including the services provided, and any fees associated with them. [email or web address] Not available 11/02/2021 15:19:50 05/09/2022 [id number] Well Visit 50 to 65: Care Instructions [email or web address] Not available 05/09/2022 09:50:15 06/03/2022 [id number] deciding about using medicines to quit smoking [...] stress management improv ing sleep therapist i [facility] sponsor}} {{adding exercise regular meals stress management improv ing sleep therapist i [facility] sponsor}} {{adding exercise regular meals stress management improv ing sleep therapist i [facility] sponsor}} My Health To Do List {{go to [place] or call si gn up for bettina text 2 quit or other stop smoking bettina contact [employer]}} {{go to [place] or call si gn up for bettina text 2 quit or other stop smoking bettina contact [employer]}} {{go to [place] or call si gn up for bettina text 2 quit or other stop smoking bettina contact [employer]}} [email or web address] Not available 06/03/2022 11:32:01 Reason for [...] K/? ? ?L 4.23-9 .07 Not Available [address], [address], 05/02/2022 10:57:58 05/02/20 22 05/02/2022 CBC RBC 5.36 M/? ? ?L 4.63-6 .08 Not Available [address], [address], 05/02/2022 10:57:58 05/02/20 22 05/02/2022 CBC HGB 17.3 g/dL 13.7-1 7.5 Not Available [address], [address], 05/02/2022 10:57:58 05/02/20 22 05/02/2022 CBC HCT 49.1 % 40.1-5 1.0 Not Available [address], [address], 05/02/2022 10:57:58 05/02/20 22 05/02/2022 CBC MCV 91.6 fL 79.0-9 2.2 Not Available [address], [address], 05/02/2022 10:57:58 05/02/20 22 05/02/2022 CBC MCH 32.3 pg 25.7-3 2.2 high Not Available [address], [address], 05/02/2022 10:57:58 05/02/20 22 05/02/2022 CBC MCHC 35.2 g/dL 32.3-3 6.5 Not Available [address], [address], 05/02/2022 10:57:58 05/02/20 22 05/02/2022 CBC plt 247 K/? ? ?L 163-33 7 Not Available [address], [address], 05/02/2022 10:57:58 05/02/20 22 05/02/2022 CBC MPV 10.4 fL 9.4-12 .4 Not Available [address], [address], 05/02/2022 10:57:58 05/02/20 22 05/02/2022 CBC neut% 59.1 % 34.0-6 7.9 Not Available [address], [address], 05/02/2022 10:57:58 05/02/20 22 05/02/2022 CBC neut# 4.72 1.78-5 .38 Not Available [address], [address], 05/02/2022 10:57:58 05/02/20 22 05/02/2022 CBC lymph % 30.8 % 21.8-5 3.1 Not Available [address], [address], 05/02/2022 10:57:58 05/02/20 22 05/02/2022 CBC lymph # 2.46 K/? ? ?L 1.32-3 .57 Not Available [address], [address], 05/02/2022 10:57:58 05/02/20 22 05/02/2022 CBC mono% 7.5 % 5.3-12 .2 Not Available [address], [address], 05/02/2022 10:57:58 05/02/20 22 05/02/2022 CBC mono# 0.60 0.30-0 .82 Not Available [address], [address], 05/02/2022 10:57:58 05/02/20 22 05/02/2022 CBC eo% 1.8 % 0.8-7. 0 Not Available [address], [address], 05/02/2022 10:57:58 05/02/20 22 05/02/2022 CBC eo# 0.14 0.04-0 .54 Not Available [address], [address], 05/02/2022 10:57:58 05/02/20 22 05/02/2022 CBC baso% 0.5 % 0.2-1. 2 Not Available [address], [address], 05/02/2022 10:57:58 05/02/20 22 05/02/2022 CBC baso# 0.04 0.00-0 .08 Not Available [address], [address], 05/02/2022 10:57:58 05/02/20 22 05/02/2022 CBC RDW-CV 11.9 % 11.6-1 4.4 Not Available [address], [address], 05/02/2022 10:57:58 05/02/20 22 05/02/2022 CBC Ig% 0.300 % 0.000- 1.500 Ig % >0.5 Indic ates possi ble Left Shift Not Available [address], [address], 05/02/2022 10:57:58 05/02/20 22 05/02/2022 CBC Ig# 0.020 0.000- 0.093 Not Available [address], [address], 05/02/2022 10:57:58 05/02/20 22 05/02/2022 CBC NRBC% 0.0 % 0.0-0. 2 Not Available [address], [address], 05/02/2022 10:57:58 05/02/20 22 05/02/2022 CBC NRBC# 0.000 0.000- 0.012 Not Available [address], [address], 05/02/2022 10:57:58 05/02/20 22 05/02/2022 COMP. METAB OLIC PANEL glucose 167 mg/dL 70-100 high Not Available [address], [address], 05/02/2022 16:10:12 05/02/20 22 05/02/2022 COMP. METAB OLIC PANEL BUN 17 mg/dL 7-18 Not Available [address], [address], 05/02/2022 16:10:12 05/02/20 22 05/02/2022 COMP. METAB OLIC PANEL creatinine 1.3 mg/dL 0.8-1. 3 Not Available [address], [address], 05/02/2022 16:10:12 05/02/20 22 05/02/2022 COMP. METAB OLIC PANEL B/C 13.1 ratio Not Available [address], [address], 05/02/2022 16:10:12 05/02/20 22 05/02/2022 COMP. METAB [...] be used in pregn dejah. Not Available [address], [address], 05/02/2022 16:10:12 05/02/20 22 05/02/2022 COMP. METAB OLIC PANEL sodium 140 mmol/ L 136-14 5 Not Available [address], [address], 05/02/2022 16:10:12 05/02/20 22 05/02/2022 COMP. METAB OLIC PANEL potassium 4.8 mmol/ L 3.5-5. 1 Not Available [address], [address], 05/02/2022 16:10:12 05/02/20 22 05/02/2022 COMP. METAB OLIC PANEL chloride 101 mmol/ L 96-107 Not Available [address], [address], 05/02/2022 16:10:12 05/02/20 22 05/02/2022 COMP. METAB OLIC PANEL anion gap 10.1 5.0-15 .0 Not Available [address], [address], 05/02/2022 16:10:12 05/02/20 22 05/02/2022 COMP. METAB OLIC PANEL CO2 29 mmol/ L 21-32 Not Available [address], [address], 05/02/2022 16:10:12 05/02/20 22 05/02/2022 COMP. METAB OLIC PANEL calcium 9.7 mg/dL 8.5-10 .3 Not Available [address], [address], 05/02/2022 16:10:12 05/02/20 22 05/02/2022 COMP. METAB OLIC PANEL total protein 7.7 g/dL 6.4-8. 2 Not Available [address], [address], 05/02/2022 16:10:12 05/02/20 22 05/02/2022 COMP. METAB OLIC PANEL albumin 3.8 g/dL 3.4-5. 0 Not Available [address], [address], 05/02/2022 16:10:12 05/02/20 22 05/02/2022 COMP. METAB OLIC PANEL globulin 3.9 g/dL Not Available [address], [address], 05/02/2022 16:10:12 05/02/20 22 05/02/2022 COMP. METAB OLIC PANEL A/G 1.0 ratio 0.8-2. 0 Not Available [address], [address], 05/02/2022 16:10:12 05/02/20 22 05/02/2022 COMP. METAB OLIC PANEL total bilirubin 0.40 mg/dL 0.00-1 .00 Not Available [address], [address], 05/02/2022 16:10:12 05/02/20 22 05/02/2022 COMP. METAB OLIC PANEL AST 24 U/L 0-37 Not Available [address], [address], 05/02/2022 16:10:12 05/02/20 22 05/02/2022 COMP. METAB OLIC PANEL ALT 62 U/L 6-63 Not Available [address], [address], 05/02/2022 16:10:12 05/02/20 22 05/02/2022 COMP. METAB OLIC PANEL alk. phos. 133 U/L 50-136 Not Available [address], [address], 05/02/2022 16:10:12 05/02/20 22 05/02/2022 LIPID PANEL cholesterol 307 mg/dL <200 mg/dl Brittani able 200-2 39 mg/dl Borde rline High >240 mg/dl High Not Available [address], [address], 05/02/2022 16:10:13 05/02/20 22 05/02/2022 LIPID PANEL triglyceride s 504 mg/dL high LIPS= Speci men Sligh tly Lipem ic. Chem Resul ts may be effec arnaud. <150 mg/dL Sheila l 150-1 99 mg/dL Borde rline High 200-4 99 mg/dL High >500 mg/dL Very High Not Available [address], [address], 05/02/2022 16:10:13 05/02/20 22 05/02/2022 LIPID PANEL direct HDL 35 mg/dL <40 mg/dl - Major Risk for CHD >60 mg/dl - Negat colby Risk for CHD Not Available [address], [address], 05/02/2022 16:10:13 05/02/20 22 05/02/2022 DIREC T [...] r is not neces phyllis. Not Available [address], [address], 05/02/2022 16:10:14 05/02/20 22 05/04/2022 HEPAT ITIS C AB W/REF L TO HCV RNA, QN, PCR hepatitis C antibody NON-RE ACTIVE non-re active normal Not Available [employer] [facility] [place] [facility] [address], [place], [address], 05/04/2022 04:56:25 05/02/20 22 05/04/2022 HEPAT ITIS [...] a test for HCV RNA (test code 38185 ) is sugreddy schuster. For addit ional infor agustín n pleas e refer to http: //[facility] sunday brand.que stdia gnost ics.c om/fa q/FAQ 22v1 (This link is being provi ded for infor matneil nal/ educa usha l purpo ses only. ) Not Available [facility] [place] [facility] [address], [place], [address], 05/04/2022 04:56:25 11/03/1911/02/2021 XR, thora cic spine [...] Doni leroy Physic elias: Jony Junior ms [facility] (Imaging) [address], [place], [address], 11/19/2021 09:19:29 Result Notes None recorded. Problems Name Problem SNOMED Code Status Onset Date Resolution Date Notes Provider Name and Address Organization Details Recorded Time Hearing loss 54677277 Active Not Available [facility] 3 03:15:40 Pain of elbow region 25955081 Completed 05/08/2013 Not Available [employer] 3 02:03:27 Chronic pain 29271029 Active Benito Simon MD [address] [place] [address], [address] , [facility] 5 10:45:36 Hypertrigl yceridemia 817469204 Active Heike Lo [facility], [facility] 6 16:08:06 Pain of elbow region 03037323 Active Elvie Patton [facility], [facility] 4 13:28:56 Tobacco dependence syndrome 63872548 Active Benito Simon MD [address] [place] [address], [address] , [facility] 4 10:01:53 Deep venous thrombosis 094407468 Active 2020 Macarena Amaya LPN [facility] 11:31:13 Problem Notes None recorded. Procedures Surgical History Date Name Laterality Status Provider Name and Address Organization Details Recorded Time 06/03/20 Smoking cessation counseling completed DEMOND Smallwood [address] [place] [address], [address], [facility] 06/03/2022 11:32:05 05/09/20 22 Medicare Wellness Visit completed [facility] 05/09/2022 09:22:01 05/09/20 22 Alcohol use screening completed [facility] 05/09/2022 09:22:01 05/09/20 22 Cardiovascular disease risk reduction counseling completed Carolyn [facility] 05/09/2022 09:22:01 07/30/19 22 Smoking cessation counseling completed DEMOND Smallwood [address] [place] [address], [address], [facility] 07/30/2021 10:02:26 05/20/20 21 Smoking cessation counseling completed Teresa Cowan OD [address] [place], [address], [facility] 05/20/2021 11:01:06 05/20/20 21 Refraction completed Teresa Cowan OD [address] [place], [address], [facility] 05/20/2021 10:59:55 05/06/20 21 Smoking cessation counseling completed Charlotte Zacarias [facility] 05/06/2021 09:25:51 05/06/20 21 Alcohol use screening completed Charlotte Zacarias [facility] 05/06/2021 08:47:46 05/06/20 21 Cardiovascular disease risk reduction counseling completed Charlotte Zacarias [facility] 05/06/2021 08:47:46 05/06/20 21 Medicare Annual Wellness Visit completed Charlotte Zacarias [facility] 05/06/2021 08:47:46 02/19/20 21 Smoking cessation counseling completed Lilo Llanes [facility] 02/17/2021 19:47:50 12/19/19 21 Post hospital/SNF follow-up/Transit ional Care completed Mohinder Ross [facility] 12/18/2020 11:41:38 04/01/20 20 Smoking cessation counseling completed Elvie Causey, MATTHIAS [address] [place] [address], [address], [facility] 04/01/2020 08:42:36 04/01/20 20 Telephonic Visit completed Tamra Soliz [facility] 04/01/2020 08:19:13 03/25/20 20 Smoking cessation counseling cancelled Tamra Soliz [facility] 03/25/2020 12:34:25 03/25/20 20 Carbon Monoxide Testing cancelled Tamra Soliz [facility] 03/25/2020 12:34:25 09/19/19 18 Smoking cessation counseling completed Teresa Cowan OD [address] [place], [address], [facility] 09/18/2017 11:44:34 09/19/19 18 Refraction completed Trice Berry [facility] 09/18/2017 11:05:08 07/11/19 18 Smoking cessation counseling completed Bita Leon LPN [facility] 07/11/2017 09:28:30 07/11/19 18 Carbon Monoxide Testing completed Bita Leon LPN [facility] 07/11/2017 09:30:07 06/09/20 17 Smoking cessation counseling completed Karey Gibbons [facility] 06/09/2017 08:59:33 06/09/20 17 Carbon Monoxide Testing completed Karey Gibbons [facility] 06/09/2017 08:59:33 04/04/20 16 Smoking cessation counseling completed Katarina Israel MA [facility] 04/04/2016 14:08:44 04/04/20 16 Medicare Wellness Visit completed Katarina Israel MA [facility] 04/04/2016 14:04:11 04/04/20 16 Carbon Monoxide Testing completed Katarina Israel [facility] 04/04/2016 14:16:45 07/30/19 14 Medicare Wellness Visit completed Katarina Israel [facility] 07/30/2013 09:58:50 Imaging Results Imaging Date Name Status LastModified by Organiz ation Details LastModified Time 11/02/2021 XR, thoracic spine completed [facility] (Imaging) [address], [place], [address], 11/19/2021 09:19:29 Procedure Notes None recorded. Medical [...] Updated DateTime 2 182.88 cm 30.7 kg/m2 196525. 88 g 84 /min 163 mm[Hg] 103 mm[Hg] 176 mm[Hg] 115 mm[Hg] 178 mm[Hg] 107 mm[Hg] Macarena Amaya LPN [facility] 2 10:47:59 Date Recorded Body height Body mass index (BMI) Body weight Systolic blood pressure Diastolic blood pressure Provider Name and Address Organization Details Last Updated DateTime 09/06/2021 182.88 cm 28.2 kg/m2 57678.21 g 140 mm[Hg] 82 mm[Hg] [facility] 2 09:39:29 Date Recorded Body height Body mass index (BMI) Body weight Systolic blood pressure Diastolic blood pressure Provider Name and Address Organization Details Last Updated DateTime 11/02/2021 182.88 cm 28.2 kg/m2 93688.21 g 122 mm[Hg] 88 mm[Hg] Carolyn [facility] 2 15:19:28 Date Recorded Body height Body mass index (BMI) Body weight Systolic blood pressure Diastolic blood pressure Provider Name and Address Organization Details Last Updated DateTime 05/09/2022 180.34 cm 31.2 kg/m2 183666.6 9 g 138 mm[Hg] 86 mm[Hg] Carolyn [facility] 2 09:26:53 Date Recorded Body height Heart rate Body mass index (BMI) Body weight Systolic blood pressure Diastolic blood pressure Provider Name and Address Organization Details Last Updated DateTime 2 180.34 cm 72 /min 30.7 kg/m2 49288.7 2 g 136 mm[Hg] 88 mm[Hg] Prachi Contreras [facility] 10:55:50 Social History Question Answer Notes LastModified by Organizat ion Details LastModified Time Tobacco Smoking Status Current Every Day Smoker Macarena Amaya LPN null, [facility] 08/31/2021 10:47:48 Do You Have An Advance Directive? No Information not available 05/30/2012 Are You Blind Or Do You Have Difficulty Seeing? No Information not available 07/30/2013 What Is Your Level Of Caffeine Consumption? Moderate Information not available 05/09/2022 How Much Tobacco Do You Chew? None [email or web address] Information not available 06/09/2017 Are You Deaf Or Do You Have Serious Difficulty Hearing? Yes Left Ear Issue Information not available 07/30/2013 What Type Of Diet Are You Following? REGULAR Information not available 05/30/2012 Which Illicit Or Recreational Drugs Have You Used? None Information not available 04/01/2020 Have There Been Any Changes To Your [...] not available 05/30/2012 CSRP - Narcotics No [email or web address] Information not available 02/14/2014 CSRP Contract Signed And Discussed No [place]--Stopped For Cocaine 02/10/14 [email or web address] Information not available 02/14/2014 Patient Has Health Care Proxy Signed And In Chart No Information not available 05/30/2012 CCM Consent Discussion 04/04/2016 [email or web address] Information not available 06/07/2016 Marital Status Single Info rmation not available 05/30/2012 What Was The Date Of Your Most Recent Tobacco Screening? 06/03/2022 Information not available 06/03/2022 How Many Children Do You Have? 2 Information not available 05/30/2012 What Is Your Current Pack Years? 10pacami ananya Information not available 07/11/2017 Do You Use Your Seat Belt Or Car Seat Routinely? Yes Information not available 05/06/2021 Do You Have Smoke And Carbon Monoxide Detectors In Your Home? No Information not available 05/09/2022 Are You Passively Exposed To Smoke? Yes Information not available 05/06/2021 How Much Tobacco Do You Smoke? 0.5 PPD Information not available 05/09/2022 General Stress Level High Information not available 05/30/2012 Do You Use Sunscreen Routinely? No Information not available 05/06/2021 Do You Have Difficulty Walking Or Climbing Stairs? Yes Information not available 07/30/2013 Sex: Unknown Functional Status Question Answer Note LastModified by Organizat ion Details LastModified Time Do you use any illicit or recreational drugs? No Information not available 06/08/2021 Do you or have you ever used any other forms of tobacco or nicotine? No Information not available 05/09/2022 What is your level of alcohol consumption? None Information not available 07/30/2013 Do you or have you ever used smokeless tobacco? Never used smokeless tobacco Information not available 04/01/2020 Are you currently employed? No Information not available 05/09/2022 Do you have difficulty doing errands alone? Yes Information not available 07/30/2013 What is your occupation? [employer] Information not available 07/30/2013 Do you have difficulty dressing or bathing? Yes Information not available 07/30/2013 Do you or have you ever used e-cigarettes or vape? Never used electronic cigarettes Information not available 04/01/2020 What is your exercise level? None Information not available 05/06/2021 Mental Status Question Answer Note LastModified by Organizat ion Details LastModified Time Do you have difficulty concentrating, remembering or making decisions? Yes [facility] Information n ot available 07/30/2013 Family History [...] Recorded Time Tdap 2 completed Not Available [facility] 07/06/2019 02:16:04 Influenza, split virus, trivalent, PF 3 completed Not Available [facility] 07/06/2019 02:19:00 Influenza, split virus, trivalent, PF 4 completed Not Available [facility] 07/06/2019 02:19:22 Td (adult) 7 [facility] 07/17[facility]2012 10:54:47 Influenza, split virus, quadrivalent, PF 6 completed Not Available [facility] 07/06/2019 02:21:04 Influenza, split virus, quadrivalent, preservative 7 completed Benito Simon MD [address] [place] [address], [address] 06/09/2017 09:20:58 Influenza, split virus, quadrivalent, PF 1 completed [facility] 03/15/2021 09:45:30 Td (adult), 2 Lf tetanus toxoid, preservative free, adsorbed 2 completed ALONZO Hager [facility] 06/03/2022 11:30:52 Influenza, split virus, quadrivalent, PF 2 completed ALONZO Hager, [facility] 06/03/2022 11:30:52 zoster recombinant 2 completed [facility] 07/23/2021 09:39:04 Past Encounters Encounter ID Performer Location Encounter Start Date Encounter Closed Date Diagnosis/Indication Diagnosis SNOMED-CT Code Diagnosis ICD10 Code Diagnosis Note [id number] Benito Simon MD , [facility], [address] [place] [address] 05/30/2012 10:47:14 05/30/2012 11:34:21 [id number] Benito Simon MD , [facility], [address] [place] [address] 07/27/2012 08:31:02 07/27/2012 09:08:06 [id number] Benito Simon MD , [facility], [address] [place] [address] 09/21/2012 09:13:52 09/21/2012 11:20:06 [id number] Benito Simon MD , [facility], [address] [place] [address] 10/26/2012 09:17:25 10/26/2012 09:47:32 [id number] Benito Simon MD , [facility], [address] [place] [address] 02/01/2013 10:45:24 02/01/2013 11:37:18 Chronic pain 51272718 Currently on CSRP for left elbow and low back pain (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 No concerns with UDS or aberrant behavior. No need for escalating dose. Stable on current medication s. 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 Will schedule an appointmen t with Dr. Henry. [facility] policy reviewed and signed. Patient demonstrat es understand ing. Continue MS Contin 30mg po bid and Oxycodone 10mg po q8 hours prn. [id number] Benito Simon MD , [facility], [address] [place] [address] 05/03/2013 10:21:17 05/03/2013 11:30:14 Chronic pain 55890709 Currently on CSRP for left elbow and [...] referral as well. 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 Will schedule an appointmen t with Dr. Henry. [facility] CSRP policy reviewed and signed. Patient demonstrat es understand ing. Increase MS Contin to 60mg po bid. Advised to limit Oxycodone 10mg use to once or twice daily as needed (previousl y was on tid dosing). Constipation 54297785 Theodore s Lactulose as needed. Previous constipati on. Start Colace as needed for anticipati on of worsening bowel function. Fiber use discussed. Hypertriglyceridemia [id number] Previously had elevated TG 341 (01/2013). LDL was within normal. Low fat/choles terol diet and increasing activity discussed. Repeat FLP. Influenza vaccine needed [id number] Benito Simon MD FP, [facility], [address] [place] [address] 07/30/2013 09:46:54 07/30/2013 10:31:01 Adult health examination [id number] See Risk Assessment and Lifestyle Change Counseling section above. Home/vehic le/sexual safety reviewed. Influenza and Tdap vaccines UTD. Counseling 053020641 Chronic pain 45195902 Cu rrently on CSRP for left elbow [...] consider mental health referral as well. Hypertriglyceridemia 412671552 Previously had elevated TG 341 (01/2013). LDL was within normal. Low fat/choles terol diet and increasing activity discussed. Repeat FLP. 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 Followed by Dr. Henry. [facility]. Patient demonstrat es understand ing. Continue MS Contin 60mg po bid and Oxycodone 10mg po q8 hours prn. Constipation 94403383 Theodore s Lactulose and Colace as needed. Increased fiber use discussed. Understand s his constipati on likely worsened by chronic opioid use. Feels like he now has a good control over his bowel movements. Tobacco de pendence syndrome 23548688 Encouraged cessation. Behavioral modificati on discussed. Goal setting discussed using motivation al asif pereyra. Interested in Nicotine patches. [employer] informatio n given as well. Will follow up at his next visit. [id number] Benito Simon MD FP, [facility], [address] [place] [address] 11/08/2013 09:19:12 11/08/2013 10:00:51 Chronic pain 38051680 Currently on CSRP for left elbow and low back pain (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 No concerns with UDS or aberrant behavior. Behavioral modificati on and increasing activity discussed. Continue current medication doses. Advised to contact the clinic with any concerns. Recommend returning to physical therapy if inadequate pain relief. Seeing a mental health therapist Melia ([facility]). Elbow pad prescribed for additional protection . Refilled his chronic medication s (Oxycodone and MS Contin) today. Hypertriglyceridemia 084111189 Previously had elevated TG 341 (01/2013). LDL was within normal. Low fat/choles terol diet and increasing activity discussed. Repeat FLP. Tobacco de pendence syndrome 96566239 Encouraged cessation. Behavioral modificati on discussed. Goal setting discussed using motivation al asif pereyra. Interested in Nicotine patches. [employer] informatio n given as well. Will follow up at his next visit. [id number] Benito Simon MD , [facility], [address] [place] [address] 02/10/2014 10:07:55 02/10/2014 11:08:25 Chronic pain 80768776 Currently on CSRP for left elbow and [...] therapy. Seeing a mental health therapist Melia ([facility]). Will keep the Oxycodone dose the same. Will lower the dose of MS Contin from 60mg po bid to MS Contin 30mg po tid. Follow up in 10 days for re-evaluat ion. Check UDS. 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 Followed by Dr. Henry. [facility] CSRP policy reviewed and signed. Patient violated [...] therapy. Seeing a mental health therapist Melia ([facility]). Follow up in 4 weeks. Titration schedule [...] once he is off MS Contin) Hypertriglyceridemia 709479755 Patient with TG of 505 (01/2014). Would like to try lifestyle modificati on first. Discussed low fat/choles terol diet. Encouraged exercise. Repeat FLP in 3 months. If persistent ly elevated, will start fibrate medication . 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 Followed by Dr. Henry. [facility] policy reviewed and signed previously . [...] therapy. Seeing a mental health therapist Melia ([facility]). Follow up in 4 weeks. 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 Followed by Dr. Henry. [facility] policy reviewed and signed previously . [...] therapy. Seeing a mental health therapist Melia ([facility]). Follow up in 4 weeks. Will present the case at the [facility] meeting. Check UDS. Knee pain 96006231 No ligamentou s instabilit y. No meniscal sign. Denies any recent trauma or fall. Suspect arthritis, likely post-traum a from previous accidents. Influenza vaccine needed 1061018761 [id number] Benito Simon MD , [facility], [address] [place] [address] 06/30/2014 09:16:31 07/02/2014 11:21:56 Chronic pain 77315993 Recently violated the [facility] contract due to positive UDS for cocaine x2. Understand s that [facility] is not able to prescribe opioid pain [...] therapy. Seeing a mental health therapist Melia ([facility]). Hypertriglyceridemia 735798732 Patient with TG of 505 (01/2014). Would like to try lifestyle modificati on first. Discussed low fat/choles terol diet. Encouraged exercise. Has not performed his repeat FLP. Advised to get lab work done. If persistent ly elevated, will consider a fibrate medication . [id number] Benito Simon MD , [facility], [address] [place] [address] 04/04/2016 13:47:34 04/04/2016 14:36:59 Adult health examination 491422953 Z00.00 See Risk Assessment and Lifestyle Change Counseling section above. Tdap vaccine UTD. Influenza vaccine administer ed today. Has LEASE EXAMINER 3 hours daily. Optometry exam recommende d. Smoking cessation discussed. CCM reviewed. Counseling 493831390 Z71 .9 Cigarette smoker 5938150 7 F17.210 Currently smokes about 1 PPD. Behavioral modificati on and goal setting discussed. Interested in Chantix. Potential adverse effects of the medication reviewed. Tobacco user 360334441 Z 72.0 Active or passive immunization 006246468 Z23 Hypertriglyceridemia 302 266708 E78.1 Previously found to have elevated TG. Encouraged to keep low fat/choles terol diet and exercise. Recheck FLP. Pain of joint 93672815 M 25.50 Ongoing joint pain due to multiple orthopedic issues. Especially painful due to left elbow deformity. Discharged from [facility] due to prvious use of cocaine. Will further increase Gabapentin dose. [id number] Benito Simon MD , [facility], [address] [place] [address] 06/09/2017 08:48:53 06/09/2017 09:36:34 Adult health examination 424617066 Z00.00 See Risk Assessment and Lifestyle Change Counseling section above. Tdap vaccine UTD. Influenza vaccine administer ed at outside facility. Has LEASE EXAMINER 3 hours daily. Optometry exam recommende d. Smoking cessation discussed. CCM reviewed. Counseling 729705413 Z71 .9 Cigarette smoker 8638848 7 F17.210 Currently smokes about 1 PPD. Behavioral modificati on and goal setting discussed. Interested in Nicotine substitute . Rx for patch prescribed . Potential adverse effects of the medication reviewed. Tobacco user 452177628 Z 72.0 Hypertriglyceridemia 302 981110 E78.1 Previously found to have elevated TG. Encouraged to keep low fat/choles terol diet and exercise. Recheck FLP. Pain of joint 73661562 M 25.50 Ongoing joint pain due to multiple orthopedic issues. Especially painful due to left elbow deformity. Discharged from [facility] due to previous use of cocaine. Patient self discontinu ed Gabapentin . Also followed by Orthopedic s. Otitis media 73577563 H6 6.91 Involving bilateral ears in a setting of URI. Informed likely resolve, but significan t pain and muffled hearing. Erythemato us bulging TM with middle ear fluids. Will treat with Augmentin. Cough 58566685 R05 Patient with clinical presentati on of viral upper respirator y infection. No hemodynami c instabilit y. Supportive care with ample oral hydration and rest discussed. Advised on nasal saline irrigation , decongesta nt, and NSAID use. Cough medication prescribed . Advised to contact the clinic if no improvemen t in 3-4 days. Indication s for UC/ER use discussed. Insomnia 096678401 G47.0 0 Patient reports increased insomnia. Sleep hygiene discussed. Also with PHQ-9 score of 15. Encouraged to seek BH therapy. Trial of Seroquel discussed. May titrate up. Potential adverse effects of the medication reviewed. Follow up in 1 month for re-evaluat ion. [id number] Benito Simon MD , [facility], [address] [place] [address] 07/11/2017 09:18:06 07/11/2017 09:46:09 Cigarette smoker 06406754 F17.210 Currently smokes about 1 PPD. Behavioral modificati on and goal setting discussed. Interested in Nicotine substitute . Rx for patch prescribed . Potential adverse effects of the medication reviewed. Tobacco user 526783112 Z 72.0 Hypertriglyceridemia 302 177952 E78.1 Previously found to have elevated TG. Encouraged to keep low fat/choles terol diet and exercise. Recheck FLP. Pain of joint 92904321 M 25.50 Ongoing joint pain due to multiple orthopedic issues. Especially painful due to left elbow deformity. Discharged from [facility] due to previous use of cocaine. Patient self discontinu ed Gabapentin . Also followed by Orthopedic s (Dr. Chelle Henry). Will schedule for a follow up as now he is developing left wrist pain (ulnar aspect). Trial of Lyrica discussed. Insomnia 730672532 G47.0 0 Patient reports increased insomnia. Sleep hygiene discussed. Also with PHQ-9 score of 15. Encouraged to seek BH therapy. Trial of Seroquel discussed. States he is doing well at the current dose. Potential adverse effects of the medication reviewed. 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 no treatment indicated, observe. Tobacco user 952623128 Z 72.0 recommend smoking cessation. [id number] Laura Pruett MD , [facility], [address] [place] [address] 04/01/2020 08:13:18 04/02/2020 13:37:27 Cigarette smoker 93902711 F17.210 Discussed, pt used chantix in past and does not want to discuss today. Tobacco user 865752796 Z 72.0 See above. 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 Burning pain, worse at night and when walking; radiates a little up to knees. Nothing relieves it.Will order BMP (check glucose, ? elevated sugar) & refer to PT. Pt reports he has transporta tion and can get labs and come to PT.Reviewe d when to f/u with Ofc. Hypertriglyceridemia 302 731855 E78.1 Lipids overdue, will order as pt going to lab at [facility]. Pain of elbow region 743 91372 M25.[address] Chelle Henry @ [facility] s/t atrophy and inability to use L arm.Would like eval s/t recent onset pain.Will request record from [facility] to include with record and refer back to Dr. Henry, who is now at [facility]. [id number] Delfin Coreas MD , [facility], [address] [place] [address] 12/18/2020 14:59:27 12/18/2020 15:27:06 Deep venous thrombosis 675895538 I82.409 Dx yesterday in ER. Right popliteal vein. Starting eliquis today, discussed dosing.Robinson f pain persists otherwise asymptomat ic. Emphasized importance of smoking cessation. F/U in 1 week. [id number] Delfin Coreas MD FP, [facility], [address] [place] [address] 12/25/2020 10:25:50 12/27/2020 14:25:40 Deep venous thrombosis 908599873 I82.409 Dx last wee kin ER. Right popliteal vein. Taking eliquis.Ca lf pain and mild swelling persist otherwise asymptomat ic.COntinu e eliquis 5 mg BID.Encour aged compressio n, elevation, at rest, and regular walking.Em phasized importance of smoking cessation. Has F/U in 1 month with FK. Pain in right knee 90170 98247 31568 M25.561 Pain and swelling in right knee X 3 months. Pt requesting orthopedic referral. WIll get xray. [id number] Danni Causey DO FP, [facility], [address] [place] [address] 02/18/2021 10:13:52 02/19/2021 11:06:48 Deep venous thrombosis 977467304 I82.409 Pt is s/p treatment with eliquis, still reporting pain and tightness in calf. Will repeat doppler. Pt to go to ED if he has CP, SOB, palpitatio ns or other concerning symptoms. Pt expresses understand ing of this plan. Cigarette smoker 3572978 7 F17.210 Discussed and encourage smoking cessation. Patient contemplat ing but not ready. Encourage follow up if needing assistance with this. Tobacco user 313814875 Z 72.0 Pain in ri ght lower limb 093005029 M79.604 As above. Syncope 257059160 R55 EKG today showing no acute ischemic changes, NSR. Will get echo as patient has had multiple syncopal episodes and DVT. Injury of head 60647207 S09.90XA No lasting effects. Atypical chest pain 1025 52241 R07.89 Plan as above. Hypertriglyceridemia 302 404935 E78.2 Pt should consider statin-the rapy. [id number] Benito Simon MD , [facility], [address] [place] [address] 03/15/2021 09:09:27 03/15/2021 13:29:10 Screening for malignant neoplasm of colon 004950707 Z12.11 Will refer for screening colonoscop y. Recommende d to wait to schedule the procedure until he is off DOAC to minimize the risks. Active or passive immunization 711024315 Z23 Acute deep venous thrombosis of right lower extremity 7845641437 53035 I82.401 Unprovoked RLE DVT. Initially was diagnosed with DVT in 12/2020 at [facility]. Was prescribed Eliquis 30-day course (5mg [...] Currently has a Wellness appointmen t scheduled. [id number] DO HELGA Eddy, [facility], [address] [place] [address] 05/06/2021 09:08:39 05/06/2021 10:05:34 Adult health examination 456499951 Z00.00 Pts overall health is fair. Start vitamin D. Next [place] in 1 year. Depression screening 171 438255 Z13.31 depression screening tool administer ed, entered into emr, scored and discussed, time greater than 7.5 minutes Screening for alcohol abuse 401811724 Z13.39 Counseling 764279424 Z71 .89 including cardiovasc ular risk reduction counseling Screening for malignant neoplasm of colon 793884338 Z12.11 Referral for a DIRECT booked colonoscop y. This patient is a healthy ASA Class 1 or 2 patient (only mild systemic disease), or a STABLE, well controlled insulin dependent diabetic. They do not have serious cardiac disease ie RI/angiopl asty within 1 year, symptomati c CHF; renal failure with CKD 4 or 5; take Coumadin, Plavix, Aggrenox, etc. Screening for disorder 739746648 Z11.59 Cigarette smoker 4720184 7 F17.210 Discussed and encourage smoking cessation. Patient contemplat ing but not ready. Encourage follow up if needing assistance with this. Tobacco user 407280477 Z 72.0 Chest pain 79122248 R07. 9 Resolved. Abdominal wind pain 4597 9003 R14.1 Trial of simethicon e. Difficulty sleeping 3013 33054 Z72.820 Trial of melatonin. Panic attack 714655002 F 41.0 Trial of hydroxyzin e. [id number] Teresa Cowan, OD Eye Care, [facility] [address] [place] [address] 05/20/2021 09:41:54 06/03/2021 11:18:28 Presbyopia 02539248 H52.4 Corneal scar 38102524 H1 7.12 s/p FB removal per patient, now with scar. no treatment indicated, observe. Tobacco user 398705190 Z 72.0 recommend smoking cessation. Dry eyes 981286743 H04.1 29 by hx. recommend AT 2-3 x per day. [id number] Keanu Thompson MD , [facility], [address] [place] [address] 06/08/2021 07:55:22 06/14/2021 20:36:36 Backache 181080416 M54.9 Recommend also try PT. Referral placed. Follow-up with PCP soon; may need earlier appt with specialist Tobacco user 618741911 Z 72.0 [id number] Danni Causey DO , [facility], [address] [place] [address] 07/01/2021 09:11:53 07/06/2021 08:52:42 Chronic pain 84958890 G89.29 Pt working with ortho to have [...] improvemen t. Pt agrees with plan. Backache 453583045 M54.9 See above. Deep venou s thrombosis 588180149 I82.409 Cont Eliquis- will need life-long per heme. [id number] Robert Amaya MD , [facility], [address] [place] [address] 07/30/2021 09:17:14 08/02/2021 10:46:14 Cigarette smoker 53222855 F17.210 Tobacco user 984797369 Z 72.0 Bleeding from nose 26175 6005 R04.0 NO PERSISTANT SIGNS OF BLEEDING, pt will f/u if any recurrence , know to avoid nsaids, asa. discussed how to stop bleeding from the nose. [id number] DO HELGA Eddy, [facility], [address] [place] [address] 08/16/2021 12:00:56 08/16/2021 13:41:08 Elevated blood-pressure reading without diagnosis of hypertension 646071391 R03.0 Pt was told at surgeon's office that BP was elevated. Notes not yet received. Pt asymptomat ic, to schedule BP clinic, home machine order sent. [id number] Danni Causey DO [facility], [address] [place] [address] 08/31/2021 10:44:05 09/06/2021 10:14:05 Screening for disorder 319043692 Z11.59 Benign ess ential hypertension 9263862 I10 Start antihypert ensive medication today, 2 hours later please repeat BP and call in the result. Will adjust medication as indicated. Discussed red flag symptoms including THEODORE, vision changes, CP, SOB, palpitatio ns in which case patient should seek immediate medical attention. Pt agrees with plan. Hypertensive urgency 443 093153 I16.0 Unclear if THEODORE related to elevated BP. Plan as above. Discussed red flag symptoms including THEODORE, vision changes, CP, SOB, palpitatio ns in which case patient should seek immediate medical attention. Pt agrees with plan. Headache 98540857 R51.9 As above. [id number] Danni Causey DO , [facility], [address] [place] [address] 09/06/2021 09:21:43 09/06/2021 10:12:10 Pain of joint 70403848 M25.50 Pt with chronic back pain, has spinal stimulator . Cont lidocaine patches. Will increase gabapentin dose, f/u in 1 month for re-eval of pain/dosin g. Dizziness 917410963 R42 Neg workup thus far, possibly 2/2 pain vs elevated BP. Intermitte nt palpitations 412637744 R00.2 Neg workup thus far, possibly 2/2 pain vs elevated BP. Headache 46984812 R51.9 Neg workup thus far, possibly 2/2 pain vs elevated BP. Benign ess ential hypertension 9815350 I10 Will increase HCTZ. Home BP monitor [...] with plan. Chronic low back pain 27 4174319 M54.50 REfill lidocaine. Polyp of colon 20324909 K63.5 Await GI notes. Per patient 3 polyps removed. [id number] Danni Causey DO , [facility], [address] [place] [address] 11/02/2021 14:56:28 11/23/2021 11:41:56 Chronic back pain 272443873 M54.9 On-going, to f/u with ortho. Referred to pain mgt- contact info provided, will get x-ray as pain has worsened. Insomnia 738538118 G47.0 0 Dealing with difficulty sleeping, pain and depression 2/2 pain. Start trazodone QHS. Discussed indication s for new prescripti on, risks and benefits of medication , common side effects and how to manage, and reasons to notify prescriber of adverse effects or discontinu ation. Depressive disorder 3548 9007 F32.A As above. [id number] Marika jimenez PA-C , [facility], [address] [place] [address] 05/09/2022 09:07:10 05/09/2022 09:42:32 Adult health examination 626310179 Z00.00 Pts overall health is fair. Reviewed labs. Next [place] in 1 year.next colon 2024 Counseling 755667065 Z71 .9 including cardiovasc ular risk reduction counseling Depression screening 171 970266 Z13.31 depression screening tool administer ed, entered into emr, scored and discussed Screening for alcohol abuse 257577795 Z13.39 Deep venou s thrombosis 502978493 I82.409 Cont Eliquis- will need life-long per heme. Hypertriglyceridemia 302 365347 E78.2 Pt agrees to start statin therapy. Will recheck in 3 months. Tobacco de pendence syndrome 54887415 F17.200 Snoring 97566272 R06.83 Will get sleep study. Impaired f asting glycemia 860423253 R73.01 Repeat labs in 3 months. Work on decreasing carbs/swee ts in diet. Thoracic back pain 66042 8004 M54.6 Following pain mgt, awaiting imaging with specialist . [id number] Robert Amaya MD , [facility], [address] [place] [address] 06/03/2022 10:31:57 06/03/2022 17:41:42 Tobacco user 158227131 Z72.0 Active or passive immunization 479297672 Z23 Insomnia 973453898 G47.0 0 with chronic back pain- sleep dierupted- will trial increasing trazodone- pt states has hx depression - discussed duloxetine may be added- f/u with PCP Dental caries 14167039 K 02.9 Pre-surger y evaluation 518306230 Z01.818 pt cleared for surgery- pending review of ER visit. requested record from recent emergency room visit re seizure like activity. Bereavement 43266081 Z63 .4 pt lost his son this [...] Villa Member ID Guarantor Name 08/31/2021 1 [facility] - DOS PRIOR TO 2022 - DUAL ELIGIBLE (MEDICARE REPLACEMENT/ADV ANTAGE - HMO) [employer] Contreras [id number] [employer] 09/06/2021 1 [facility] [employer] - DOS PRIOR TO 2022 - DUAL ELIGIBLE (MEDICARE REPLACEMENT/ADV ANTAGE - HMO) [employer] Contreras [id number] [employer] 11/02/2021 1 [facility] - DOS PRIOR TO 2022 - DUAL ELIGIBLE (MEDICARE REPLACEMENT/ADV ANTAGE - HMO) [employer] Contreras [id number] [employer] 05/09/2022 1 [facility] - DOS PRIOR TO 2022 - DUAL ELIGIBLE (MEDICARE REPLACEMENT/ADV ANTAGE - HMO) [place] Ben [id number] [employer] 06/03/2022 1 [facility] - DOS PRIOR TO 2022 - DUAL ELIGIBLE (MEDICARE REPLACEMENT/ADV ANTAGE - HMO) [employer]ras [id number] [employer] Notes Date Note Type Note [...] in the back- 12/26 Danni Causey DO [address] [place] [address], [phone], [facility] 08/31/2021 11:12:58 09/06/2021 text/html Pt presents for elevated BPhas brought in home cuff 160/101 today in office, HR 85per partner (prefers to use as interpreter translator) pt feels palpitations 20 min after taking his medication. Only happens sometimes has THEODORE, sometimes dizziness-seen in [facility] ED last week for same symptoms and syncope during spinal stim manipulation. EKG neg per ED note. -colonoscopy: per partner 3 polyps Danni Causey DO [address] [place] [address], [phone], [facility] 09/06/2021 10:14:45 11/02/2021 text/html f/u from [facility] ED on 10/25 for back pain. Left AMA still experiencing upper back pain- ongoing for 3 months. getting worse. unable to sleep. sitting makes the pain worsepain is worse at night Danni Causey, DO [address] [facility], [place], [address], [facility] 11/04/2021 13:37:40 05/09/2022 text/html Physical Exam/MaleReported bypatient.Maximo [...] and scoring greater than 7.5 minutes..a/vmg-smok ing [id number] bypatient.Notes:christopher chadwick /2ppd Danni Causey, DO [address] [place] [address], [phone], [facility] 05/09/2022 14:03:14 06/03/2022 text/html PT here for dent al clearance/ . hasnt sched as yet. Girlfriend is concerned about his mental health and sleep problems.recent loss of son, sleep- disrupted due to back pain, [facility] Insurance denied CT scan, JOHN , nutrition-had seizure like activity Perri Amaya, DEMOND [address] [place] [address], [phone], [facility] 06/03/2022 11:34:26
== END 2024-11-07 09:51 | disposition home or self-care (01) ==
LOC: HO.LNP 09:50
PROVIDERS: Visit Provider Internal Medicine
DX: I10 Essential (primary) hypertension (principal); M54.9 Dorsalgia, unspecified; G89.29 Other chronic pain
CPT/HCPCS: 81003